=== PATIENT | female | born 1940 | race African-American/Black ===

== ENCOUNTER 2018-04-14 00:59 | Inpatient (IN) | payer OTHER, MEDICARE ==
[~2018-04-14] VITALS: Ht 165.1 cm; Wt 68.0 kg
--- NOTE | 2018-04-14 01:25 | NUR ---
TO BED 8 BIB PARAMEDICS C/O PER EMS "ALTERED MORE THAN NORMAL". RA ARRIVED TO SNF FOR FULL ARREST BUT UPONA ASSESSMENT BY EMS PT HAD PULSE AND BP. PLACE PT ON CARDIAC MONITORING, CONTINUOUS POX, RT AT BEDSIDE. PLACE PT ON O2@5L/TRACHE TUBE. ER MD AT BEDSIDE TO EVAL PT WITH ORDERS RECEIVED. WILL CARRY OUT ORDERS.
[2018-04-14 01:42] LABS: ABG BASE EXCESS -2.6 mmol/L; ABG OXYGEN SATURATION 98.3 % (92.0-98.5); ABG PCO2 35.1 mmHg (35.0-45.0); ABG PH 7.406 (7.350-7.450); ABG PO2 148.3 mmHg (75.0-100.0); AaDO2 96.5 mmHg; COHb 0.3 % (0.5-1.5); MetHb 0.3 % (0.0-1.5); O2Hb 97.7 % (94.0-97.0); SITE, ABG Right Radial; VENT MODE, BG T-PIECE
[2018-04-14 01:55] LABS: BASOPHILS # (AUTO) 0.1 /CMM (0.0-0.2); BASOPHILS % (AUTO) 0.6 % (0.0-2.0); EOSINOPHILS % (AUTO) 1.8 % (0.0-6.0); HEMATOCRIT 42 % (33-45); HEMOGLOBIN 13.2 g/dL (11.5-14.8); LYMPHOCYTES # (AUTO) 1.1 /CMM (0.8-4.8); LYMPHOCYTES % (AUTO) 9.1 % (20.0-44.0); MEAN CORPUSCULAR HEMOGLOBIN 31 PG (26.0-33.0); MEAN CORPUSCULAR HGB CONC 32 g/dl (31.0-36.0); MEAN CORPUSCULAR VOLUME 99 fL (82-100); MONOCYTES # (AUTO) 0.6 /CMM (0.1-1.30); MONOCYTES % (AUTO) 5.5 % (2.0-12.0); NEUTROPHILS # (AUTO) 9.8 /CMM (1.8-8.9); PLATELET COUNT (AUTO) 231 /CMM (150-450); WHITE BLOOD COUNT (AUTO) 11.8 K/uL (4.3-11.0)
--- NOTE | 2018-04-14 02:03 | NUR ---
PT RESTING QUIETLY, NO ACUTE DISTRESS NOTED, RESP EVEN AND UNLABORED. AWAITING CT AND CXR RESULT.
[2018-04-14 02:08] LABS: INR 0.97 (0.87-1.13)
[2018-04-14 02:14] LABS: TROPONIN I 0.076 ng/mL (0.00-0.056)
[2018-04-14 02:24] LABS: CALCIUM, SERUM 9.4 mg/dL (8.5-10.1); CARBON DIOXIDE 25 mmol/L (21-32); CHLORIDE 105 mmol/L (98-107); CREATININE 0.7 mg/dL (0.6-1.3); GLUCOSE 124 mg/dL (74-106); POTASSIUM 5.9 mmol/L (3.5-5.1); SODIUM SERUM 140 mmol/L (136-145); UREA NITROGEN, BLOOD 34 mg/dL (7-18)
--- NOTE | 2018-04-14 02:29 | NUR ---
PT TRANSPORTED TO RADIOLOGY FOR CT HEAD.
[2018-04-14 02:30] LABS: ALANINE AMINOTRANSFERASE 47 U/L (12-78); ALBUMIN 2.5 g/dL (3.4-5.0); ALKALINE PHOSPHATASE 502 U/L (46-116); ASPARTATE AMINOTRANSFERASE 57 U/L (15-37); BILIRUBIN,DIRECT 0.6 mg/dL (0.0-0.2); BILIRUBIN,TOTAL 1.2 mg/dL (0.2-1.0); TOTAL PROTEIN, SERUM 9.1 g/dL (6.4-8.2)
[2018-04-14 02:46] LABS: ACETAMINOPHEN 0 ug/ml (10-30); SALICYLATE < 2.0 mg/dL (2.8-20.0)
--- NOTE | 2018-04-14 02:47 | NUR ---
PT BACK FROM RADIOLOGY. PENDING CT RESULT.
[2018-04-14 02:48] LABS: ALCOHOL, BLOOD < 3 mg/dL (0-0)
--- NOTE | 2018-04-14 03:45 | NUR ---
CT RESULT RECEIVED. ER MD GOMEZ AWARE.
--- NOTE | 2018-04-14 04:10 | NUR ---
TOTAL PT CARE DONE.
[2018-04-14 04:38] LABS: APPEARANCE,URINE CLOUDY (CLEAR); BILIRUBIN,URINE NEGATIVE (NEGATIVE); BLOOD, URINE 1+ Ery/uL (NEGATIVE); COLOR,URINE YELLOW (YELLOW); KETONES,URINE NEGATIVE (NEGATIVE); LEUKOCYTE ESTERASE ,URINE NEGATIVE (NEGATIVE); NITRITE, URINE NEGATIVE (NEGATIVE); PROTEIN,URINE 1+ mg/dl (NEGATIVE); UGLUCOSE NEGATIVE (NEGATIVE); UROBILINOGEN,URINE 0.2 EU/dL (0.2)
[2018-04-14 04:42] LABS: BACTERIA,URINE None seen /HPF (None Seen); SQUAMOUS EPITHELIAL CELL,UR Few /HPF (None Seen); URINE AMORPHOUS URATE Many /HPF (None Seen); WBC,URINE 0-2 /HPF (0-3)
[2018-04-14] MEDS ORDERED: ASPIRIN 325 MG TABLET GT ONE (05:30)
--- NOTE | 2018-04-14 05:43 | NUR ---
PER TIARRA FROM ADMITTING "VERBAL AUTH TO ADMIT AND THEY WILL FAX THE AUTH NUMBER LATER"
--- NOTE | 2018-04-14 05:56 | NUR ---
ER SPOKE TO DR. KEE REGARDING PT ADMISSION.
[2018-04-14] MEDS ORDERED: ASPIRIN 325 MG TABLET ONE (06:17)
--- NOTE | 2018-04-14 06:18 | NUR ---
REPORT CALLED TO JF. WILL TRANSPORT PT VIA ACLS PROTOCOL.
[2018-04-14 06:49] VITALS: BP 122/66
[2018-04-14] MEDS ORDERED: OXYC5CAP18 GT (07:52)
[2018-04-14] MEDS ORDERED: PANT20TA2 PO (07:52)
[2018-04-14] MEDS ORDERED: HYDR10SY15 GT (07:52)
[2018-04-14] MEDS ORDERED: HYDR4TAB4 PO (07:52)
[2018-04-14] MEDS ORDERED: HYDR4TAB57 GT (07:52)
[2018-04-14] MEDS ORDERED: ACET325C5 PO (07:52)
[2018-04-14] MEDS ORDERED: POTA10CA43 PO (07:52)
[2018-04-14] MEDS ORDERED: ENOX40DI SQ (07:52)
[2018-04-14 08:00] VITALS: BP 111/77
[2018-04-14 08:06] LABS: BASOPHILS # (AUTO) 0.1 /CMM (0.0-0.2); BASOPHILS % (AUTO) 0.4 % (0.0-2.0); EOSINOPHILS % (AUTO) 1.2 % (0.0-6.0); HEMATOCRIT 36 % (33-45); HEMOGLOBIN 11.8 g/dL (11.5-14.8); LYMPHOCYTES # (AUTO) 1.3 /CMM (0.8-4.8); LYMPHOCYTES % (AUTO) 10.1 % (20.0-44.0); MEAN CORPUSCULAR HEMOGLOBIN 32 PG (26.0-33.0); MEAN CORPUSCULAR HGB CONC 33 g/dl (31.0-36.0); MEAN CORPUSCULAR VOLUME 97 fL (82-100); MONOCYTES # (AUTO) 0.9 /CMM (0.1-1.30); MONOCYTES % (AUTO) 6.9 % (2.0-12.0); NEUTROPHILS # (AUTO) 10.1 /CMM (1.8-8.9); NEUTROPHILS % (AUTO) 81.4 % (43.0-81.0); PLATELET COUNT (AUTO) 293 /CMM (150-450); RDW COEFFICIENT OF VARIATION 22.8 (11.5-15.0); RED BLOOD CELL COUNT(AUTO) 3.69 MIL/uL (4.0-5.2); WHITE BLOOD COUNT (AUTO) 12.5 K/uL (4.3-11.0)
[2018-04-14 08:25] LABS: TROPONIN I 0.106 ng/mL (0.00-0.056)
[2018-04-14 08:30] VITALS: BP 111/77
[2018-04-14 08:31] LABS: ALANINE AMINOTRANSFERASE 38 U/L (12-78); ALBUMIN 2.2 g/dL (3.4-5.0); ALKALINE PHOSPHATASE 444 U/L (46-116); ASPARTATE AMINOTRANSFERASE 39 U/L (15-37); B-TYPE NATRIURETIC PEPTIDE 474 PG/ML (0-125); CALCIUM, SERUM 9.3 mg/dL (8.5-10.1); CARBON DIOXIDE 24 mmol/L (21-32); CHLORIDE 106 mmol/L (98-107); CHOLESTEROL 148 mg/dL (<200); CREATININE 0.7 mg/dL (0.6-1.3); GLUCOSE 129 mg/dL (74-106); HDL CHOLESTEROL 66 mg/dL (40-60); LDL 69 mg/dL (0-99); MAGNESIUM 2.4 mg/dL (1.8-2.4); PHOSPHORUS 4.7 mg/dL (2.5-4.9); POTASSIUM 5.8 mmol/L (3.5-5.1); SODIUM SERUM 139 mmol/L (136-145); THYROID STIMULATING HORMONE 15.954 uIU/mL (0.358-3.74); TOTAL PROTEIN, SERUM 7.7 g/dL (6.4-8.2); TRIGLYCERIDES 86 mg/dL (30-150); UREA NITROGEN, BLOOD 34 mg/dL (7-18)
[2018-04-14] MEDS: ASPIRIN 325 MG TABLET GT SCH (09:27)
[2018-04-14] MEDS: ENOXAPARIN SODIUM 40 MG/0.4 ML DISP.SYRIN SQ SCH (09:48)
[2018-04-14] MEDS ORDERED: SODIUM POLYSTYRENE SULFONATE 15 G/60 ML BOTTLE PO ONE (10:30)
[2018-04-14 11:10] LABS: ABG BASE EXCESS -1.2 mmol/L; ABG OXYGEN SATURATION 98.7 % (92.0-98.5); ABG PCO2 34.1 mmHg (35.0-45.0); ABG PH 7.436 (7.350-7.450); ABG PO2 174.3 mmHg (75.0-100.0); AaDO2 71.7 mmHg; COHb 0.3 % (0.5-1.5); MetHb 0.3 % (0.0-1.5); O2Hb 98.1 % (94.0-97.0); SITE, ABG Right Radial; VENT MODE, BG CA
[2018-04-14] MEDS: IV NS 0.9% 1,000 ML IV SCH ×2 (11:10→16:57)
[2018-04-14] MEDS ORDERED: IPRATROPIUM NEB FS 0.5 MG/2.5 ML AMPUL.NEB NEB PRN (11:30)
[2018-04-14 12:00] VITALS: BP 99/60
--- NOTE | 2018-04-14 12:00 | NUR ---
FERN GATHERER NOTES SEEN BY MADE AWARE LABS AND ABOUT THE MED RECON NOT DONE.CALL MADE TO [facility] AND GOT COPY OF MED RECON FROM THERE AND GIVEN TO CHARGE NURSE.CHARGE NURSE ALSO MADE AWARE THAT MED RECON NOT DONE.
--- NOTE | 2018-04-14 13:13 | NUR ---
SECURITY SHIFT MANAGER OPENING NOTES REPORT GOT FROM PM NURSE.TOLD THAT PATIENT RECEIVED RECENTLY FROM ER.PATIENT IS ALERTX1.ABLE TO RESPOND TO TOUCH AND LIGHT PAIN .HAS IV ON L WRIST 18G.INTACT AND PATENT.HAS TRACH AND O2 5L VIA TRACH MASK.NO SIGNS AND SYMPTOMS OF SOB OR DISTRESS NOTED. HAS CHERY CATH DRAINING CLEAR YELLOW URINE.AND HAS FLEXI SEAL .BED IS LOCKED AND IN LOW POSITION.CALL LIGHT IN REACH.WILL CONTINUE TO MONITOR.
[2018-04-14 16:00] VITALS: BP 127/56
--- NOTE | 2018-04-14 17:15 | NUR ---
COOK CHEF NOTE PATIENT HAD AN EPISODE OF DESATURATION AFTER CLEANING THE PATIENT. MADE AWARE.HOB ELEVATED PUT ON 100% OXYGEN.SUCTION DONE .BAG THE PATIENT.FOUND RESISTANCE.INNER CANNULA CHANGED.FOUND PATIENT HAS MUCUS PLUG .STAT ABG DONE.WILL CONTINUE TO MONITOR.
--- NOTE | 2018-04-14 17:30 | NUR ---
TANKERMAN NOTES MADE AWARE ABOUT AN EPISODE OF DESATURATION AND ABG RESULT.GOT NEW ORDER FOR MUCOMYST TID 10%.
[2018-04-14 17:40] LABS: ABG BASE EXCESS -4.1 mmol/L; ABG OXYGEN SATURATION 92.9 % (92.0-98.5); ABG PCO2 35.5 mmHg (35.0-45.0); ABG PH 7.378 (7.350-7.450); ABG PO2 72.9 mmHg (75.0-100.0); AaDO2 135.4 mmHg; COHb 0.9 % (0.5-1.5); MetHb 0.3 % (0.0-1.5); O2Hb 91.8 % (94.0-97.0); SITE, ABG Left Brachial; VENT MODE, BG C/A 35%
--- NOTE | 2018-04-14 17:40 | NUR ---
TEST HOLE DRILLER NOTES LEFT MESSAGE TO CASE MANAGEMENT TO CALL FAMILY.LEFT PHONE NUMBER TOO.
[2018-04-14] MEDS ORDERED: PANT20TA2 GT (18:19)
[2018-04-14] MEDS ORDERED: MELA3TAB GT (18:19)
[2018-04-14] MEDS ORDERED: POTA20TA83 GT (18:19)
[2018-04-14] MEDS ORDERED: METO-295 PO (18:19)
[2018-04-14] MEDS ORDERED: HYDR-4075 GT (18:19)
[2018-04-14] MEDS ORDERED: LABE5VIA4 IV (18:19)
--- NOTE | 2018-04-14 19:10 | NUR ---
EMERGING TECHNOLOGIES DIRECTOR SHIFT END NOTES PATIENT IS ALERTX1.ABLE TO RESPOND TO TOUCH AND LIGHT PAIN .HAS IV ON L WRIST 18G.INTACT AND PATENT WITH IVF NS 200ML/HR.HAS TRACH AND O2 35% VIA COOL AEROSOL.NO SIGNS AND SYMPTOMS OF SOB OR DISTRESS NOTED. HAS CHERY CATH DRAINING CLEAR YELLOW URINE.AND HAS FLEXI SEAL .BED IS LOCKED AND IN LOW POSITION.CALL LIGHT IN REACH.REPORT GIVEN TO PM NURSE FOR JACK.
--- NOTE | 2018-04-14 19:30 | NUR ---
TELE/RN NOTES: RECEIVED PT. IN BED W/ HOB ELEVATED. ALERT X 1. RESPONDS TO TACTILE STIMULI. ON TELE MONITOR W/ SR @ 96. HAS IV ON LEFT WRIST G # 18 PATENT AND INTACT W/ NO S/S INFECTION/INFILTRATION NOTED. W/ IVF @ 200 ML/HR. HAS TRACH W/ COOL AEROSOL W/ O2@ 35%. NO S/S OF RESPIRATORY DISTRESS NOTED. HAS F/C CATH IN PLACE DRAINING TO YELLOW URINE. HAS FLEXI SEAL PATENT AND INTACT W/ BROWNISH STOOL LIQUID. HAS A GT INPLACE AND INTACT. STARTED VITAL @ 65 CC/HR. NO RESIDUAL NOTED. NO FACIAL GRIMACES OR MOANING NOTED. WILL CONTINUE TO MONITOR.
[2018-04-14 20:00] VITALS: BP 111/70
[2018-04-14] MEDS: VITAL AF 1.2 1,000 ML BOTTLE GT PRN (23:03)
[2018-04-14] MEDS: ACETYLCYSTEINE 10% SOLN 400 MG/4 ML VIAL NEB SCH (23:44)
[2018-04-15] VITALS: BP 99/48
[2018-04-15 04:00] VITALS: BP 98/59
--- NOTE | 2018-04-15 06:31 | NUR ---
TELE/RN NOTES: NO ACUTE CHANGES NOTED DURING THIS SHIFT. REPORT GIVEN TO AM NURSE FOR JACK.
[2018-04-15 06:44] LABS: TROPONIN I 0.032 ng/mL (0.00-0.056)
[2018-04-15 06:48] LABS: CALCIUM, SERUM 8.7 mg/dL (8.5-10.1); CARBON DIOXIDE 22 mmol/L (21-32); CHLORIDE 113 mmol/L (98-107); CREATININE 0.6 mg/dL (0.6-1.3); GLUCOSE 133 mg/dL (74-106); MAGNESIUM 2.2 mg/dL (1.8-2.4); POTASSIUM 3.8 mmol/L (3.5-5.1); SODIUM SERUM 145 mmol/L (136-145); UREA NITROGEN, BLOOD 27 mg/dL (7-18)
--- NOTE | 2018-04-15 07:00 | NUR ---
RN NOTES: RECEIVED PT. ON BED, A/Ox1, TRACH DEPENDENT , TRACH CARE AND SUCTIONING DONE, ON 35% COOL AEROSOL. O2 SAT IN HIGH 90'S , ON TELE SR , HR IN 90'S , GTF AT 65CC/HR RUNNING , NO RESIDUAL NOTED, HOB ELEVATED. LEFT WRIST IV SITE G # 18 ,CDI, F/C CATH IN PLACE DRAINING TO GRAVITY WITH YELLOW URINE. FLEXI SEAL DRINING TO GRAVITY WITH , BROWNISH STOOL LIQUID STOOL, SR UP x3, CALL LIGHT WITHIN EASY REACH, BED LOCKED AND IN LOWEST POSITION, CONTINUE TO MONITOR.
[2018-04-15 08:00] VITALS: BP 132/63
[2018-04-15] MEDS: ALBUTEROL FS 2.5 MG/3 ML VIAL.NEB NEB PRN ×2 (08:03→15:50)
[2018-04-15] MEDS: ACETYLCYSTEINE 10% SOLN 400 MG/4 ML VIAL NEB SCH ×2 (08:03→15:50)
[2018-04-15] MEDS: ASPIRIN 325 MG TABLET GT SCH (08:33)
[2018-04-15] MEDS: ENOXAPARIN SODIUM 40 MG/0.4 ML DISP.SYRIN SQ SCH (08:35)
[2018-04-15 12:00] VITALS: BP 121/76
--- NOTE | 2018-04-15 12:00 | NUR ---
RN NOTES PT STABLE , O2 SAT 100% ON 355 COOL AEROSOL , CONTINUE TO MONITOR.
[2018-04-15] MEDS: VITAL AF 1.2 1,000 ML BOTTLE GT PRN (14:35)
[2018-04-15 16:00] VITALS: BP 135/63
--- NOTE | 2018-04-15 18:00 | NUR ---
RN NOTES PT STABLE , TRACH SUCTIONING DONE, TOLERATING TF WELL, L WRIST IV SITE CDI, FOLY DRINING TO GRAVITY WITH YELLOW URINE, SR UP x3, CALL LIGHT WITHIN EASY REACH, BED LOCKED AND IN LOWEST POSITION, WILL ENDORSE TO HARP REGULATOR NURSE FOR JACK .
[2018-04-15 20:00] VITALS: BP 110/59
[2018-04-16] VITALS: BP 110/59
[2018-04-16] MEDS: ACETYLCYSTEINE 10% SOLN 400 MG/4 ML VIAL NEB SCH ×3 (00:11→15:52)
[2018-04-16 04:00] VITALS: BP 131/57
[2018-04-16] MEDS: VITAL AF 1.2 1,000 ML BOTTLE GT PRN (04:46)
--- NOTE | 2018-04-16 07:10 | NUR ---
RN NOTES: RECEIVED PT. ON BED, A/Ox1, TRACH DEPENDENT , TRACH CARE AND SUCTIONING DONE, ON 35% COOL AEROSOL. O2 SAT 100%, , ON TELE SR , HR IN 90'S , GTF AT 65CC/HR RUNNING VIA G TUBE, TOLERATING WELL, NO RESIDUAL NOTED, HOB ELEVATED. LEFT WRIST IV SITE G # 18 CDI, CHERY CATH IN PLACE DRAINING TO GRAVITY WITH YELLOW URINE. FLEXI SEAL DRINING TO GRAVITY WITH BROWNISH LIQUID STOOL, BED LOCKED AND IN LOWEST POSITION, SR UP x3, CALL LIGHT WITHIN EASY REACH, CONTINUE TO MONITOR PT CLOSELY .
[2018-04-16 07:45] LABS: CALCIUM, SERUM 8.8 mg/dL (8.5-10.1); CARBON DIOXIDE 25 mmol/L (21-32); CHLORIDE 113 mmol/L (98-107); CREATININE 0.6 mg/dL (0.6-1.3); GLUCOSE 112 mg/dL (74-106); PHOSPHORUS 3.5 mg/dL (2.5-4.9); SODIUM SERUM 148 mmol/L (136-145); UREA NITROGEN, BLOOD 30 mg/dL (7-18)
[2018-04-16 07:47] LABS: TROPONIN I < 0.017 ng/mL (0.00-0.056)
[2018-04-16 07:50] LABS: BASOPHILS % (AUTO) 0.1 % (0.0-2.0); EOSINOPHILS % (AUTO) 3.2 % (0.0-6.0); HEMATOCRIT 34 % (33-45); HEMOGLOBIN 11.4 g/dL (11.5-14.8); LYMPHOCYTES # (AUTO) 1.4 /CMM (0.8-4.8); LYMPHOCYTES % (AUTO) 12.2 % (20.0-44.0); MEAN CORPUSCULAR HEMOGLOBIN 32 PG (26.0-33.0); MEAN CORPUSCULAR HGB CONC 34 g/dl (31.0-36.0); MEAN CORPUSCULAR VOLUME 96 fL (82-100); MONOCYTES % (AUTO) 8.5 % (2.0-12.0); NEUTROPHILS # (AUTO) 8.5 /CMM (1.8-8.9); PLATELET COUNT (AUTO) 256 /CMM (150-450); RDW COEFFICIENT OF VARIATION 21.8 (11.5-15.0); RED BLOOD CELL COUNT(AUTO) 3.54 MIL/uL (4.0-5.2); WHITE BLOOD COUNT (AUTO) 11.3 K/uL (4.3-11.0)
[2018-04-16 08:00] VITALS: BP 112/56
--- NOTE | 2018-04-16 08:23 | NUR ---
WOUND CARE CONSULT: PT PRESENTS WITH MULTIPLE INCISIONS (CLOSED) WITH ARUN TO HIPS, THIGHS WELL NECROTIC WOUND TO LEFT THIGH, OPEN WOUND TO LEFT MEDIAL THIGH AND STAGE 2 ULCERS TO LEFT LATERAL HIP NEAR INCISION, PRESENT ON ADMISSION. SCARRING NOTED TO FEET WITH DISCOLORATION. SACRAL SCARRING NOTED. ALL SKIN PROTECTION AND WOUND CARE RECOMMENDATIONS DISCUSSED WITH NURSING STAFF. RECOMMEND SURGICAL CONSULT. WILL SEE PRN. VASQUEZ IN AGREEMENT WITH PLAN OF CARE. PT ON [facility] BED. CURRENT PATEL SCORE IS 11. Addendum: 04/16/18 at 0825 by RAMBO HUNTLEYU Amended: Links added. Addendum: 04/16/18 at 0837 by RAMBO HUNTLEYU CALLUS NOTED TO LEFT LATERAL FOOT, PRESENT ON ADMISSION. PT ALSO NOTED TO HAVE LEAKAGE AROUND RECTAL TUBE WITH LIQUID STOOL. SKIN TO BE KEPT CLEAN AND DRY.
[2018-04-16] MEDS: ENOXAPARIN SODIUM 40 MG/0.4 ML DISP.SYRIN SQ SCH (08:27)
[2018-04-16] MEDS: ASPIRIN 325 MG TABLET GT SCH (08:27)
[2018-04-16] MEDS ORDERED: HYDROGEL DRESSING 90 GM TUBE TP PRN (08:30)
[2018-04-16] MEDS ORDERED: Z GUARD REMEDY 2 OZ OINT TP PRN (08:30)
[2018-04-16] MEDS ORDERED: HYDROGEL DRESSING 90 GM TUBE TP SCH (09:00)
[2018-04-16] MEDS ORDERED: Z GUARD REMEDY 2 OZ OINT TP SCH (09:00)
[2018-04-16] MEDS ORDERED: IV 1/2NS 1000 ML 1,000 ML IV PRN (11:00)
[2018-04-16 12:00] VITALS: BP 109/60
--- NOTE | 2018-04-16 12:00 | NUR ---
RN NOTES PT STABLE , TOLERATING TF WELL, CONTINUE TO MONITOR
[2018-04-16 16:00] VITALS: BP 116/68
--- NOTE | 2018-04-16 16:00 | NUR ---
RN NOTES VIK AND KURT STAFFORD D/TROY, REPORT GIVEN TO SNF , PT STABLE .
--- NOTE | 2018-04-16 19:30 | NUR ---
TELE/RN NOTES: RECEIVED PT. IN BED W/ HOB ELEVATED. ALERT X 1. RESPONDS TO TACTILE STIMULI. ON TELE MONITOR W/ SR @ 85. HAS IV ON LEFT WRIST G # 18 PATENT AND INTACT W/ NO S/S INFECTION/INFILTRATION NOTED. HAS TRACH W/ COOL AEROSOL W/ O2@ 35%. NO S/S OF RESPIRATORY DISTRESS NOTED. INCONTINENT OF B/B. HAS A GT INPLACE AND INTACT W/ VITAL @ 65 CC/HR. NO RESIDUAL NOTED. NO FACIAL GRIMACES OR MOANING NOTED. WILL CONTINUE TO MONITOR.
[2018-04-16 20:00] VITALS: BP 112/58
--- NOTE | 2018-04-16 20:00 | NUR ---
TELE/RN NOTES: PT. LEFT VIA STRETCHER W/ EMS STAFF IN STABLE.
[2018-04-19] MEDS ORDERED: LABE200T PO (09:47)
== END 2018-04-16 20:00 | DRG 190 ==
LOC: ER 01:04 → TELE1 06:03
PROVIDERS: ADMIT Internal Medicine; ATTEND Internal Medicine
DX: I21.A1 Myocardial infarction type 2 (principal); G93.40 Encephalopathy, unspecified; J96.11 Chronic respiratory failure with hypoxia; E87.0 Hyperosmolality and hypernatremia; R64 Cachexia; R65.10 Systemic inflammatory response syndrome (SIRS) of non-infectious origin without acute organ dysfunction; Z93.0 Tracheostomy status; E88.09 Other disorders of plasma-protein metabolism, not elsewhere classified; E03.9 Hypothyroidism, unspecified; R79.89 Other specified abnormal findings of blood chemistry; E87.6 Hypokalemia; D72.829 Elevated white blood cell count, unspecified; R74.0 Nonspecific elevation of levels of transaminase and lactic acid dehydrogenase [LDH]; F09 Unspecified mental disorder due to known physiological condition; D64.9 Anemia, unspecified; Z68.25 Body mass index [BMI] 25.0-25.9, adult
CPT/HCPCS: 31720; 36415; 36600; 70450-TC; 71045-TC; 76700-TC; 80048-TC; 80053-TC; 80061-TC; 80076-TC; 80305; 81000-TC; 82728-TC; 82803-TC; 82962-TC; 83540-TC; 83605-TC; 83735-TC; 83880; 84100-TC; 84439-TC; 84443-TC; 84484-TC; 85025-TC; 85730-TC; 87040-TC; 87081-TC; 93307-TC; 94640-TC; 94760-TC; 94762-TC; A4217; A4606; A4623; A6248; A6253; A6402; A6403; G0480; J1650; J3490; J7030; Z7610

== ENCOUNTER 2018-04-19 08:39 | Inpatient (IN) | payer MEDICARE, OTHER ==
[2018-04-19] VITALS (22 sets, daily range): BP systolic 89–148; BP diastolic 55–101
[~2018-04-19] VITALS: Ht 167.6 cm; Wt 77.1 kg
[~2018-04-19 08:39] MED LIST: ACET325C5 PO; ENOX40DI SQ; HYDR-4075 GT; HYDR10SY15 GT; HYDR4TAB4 PO; HYDR4TAB57 GT; LABE5VIA4 IV; MELA3TAB GT; METO-295 PO; OXYC5CAP18 GT; PANT20TA2 GT; PANT20TA2 PO; POTA10CA43 PO
--- NOTE | 2018-04-19 08:42 | NUR ---
BBRA FROM [facility] FOR RESP DISTRESS. PATIENT WAS NOT RESPONSIVE AND NOT BREATHING DURING THE USUAL MORNING ROUTINE CHECK AT THE FACILITY. PATIENT IS ON TRACH BUT NO VENT. SKIN IS WARM AND DRY. RT PLACED PATIENT ON VENT WITH THE FOLLOWING SETTINGS: AC=18, PEEP=5, HN=734, FIO2=60% DUSTYLEY #8. PLACED ON THE MONITOR. DR WAKEFIELD AT FOR EVAL.
--- NOTE | 2018-04-19 09:06 | NUR ---
PT PLACED INTO [facility] VENT VIA TRACH DUE TO INCREASED WOB. VENT SETTINGS BELLOW ORDER: AC 18 VT 550 fio2 60% peep +5 breath sounds clear bilateral. fernandezubag @ hob. Addendum: 04/19/18 at 0917 by BRIGIDA PATEL RT Amended: Links added.
[2018-04-19 09:23] LABS: BASOPHILS # (AUTO) 0.1 /CMM (0.0-0.2); BASOPHILS % (AUTO) 0.9 % (0.0-2.0); EOSINOPHILS % (AUTO) 2.3 % (0.0-6.0); HEMATOCRIT 34 % (33-45); HEMOGLOBIN 11.4 g/dL (11.5-14.8); LYMPHOCYTES # (AUTO) 3.2 /CMM (0.8-4.8); LYMPHOCYTES % (AUTO) 22.3 % (20.0-44.0); MEAN CORPUSCULAR HEMOGLOBIN 32 PG (26.0-33.0); MEAN CORPUSCULAR HGB CONC 34 g/dl (31.0-36.0); MEAN CORPUSCULAR VOLUME 96 fL (82-100); MONOCYTES # (AUTO) 0.7 /CMM (0.1-1.30); MONOCYTES % (AUTO) 4.7 % (2.0-12.0); NEUTROPHILS # (AUTO) 10.2 /CMM (1.8-8.9); NEUTROPHILS % (AUTO) 69.8 % (43.0-81.0); PLATELET COUNT (AUTO) 275 /CMM (150-450); RDW COEFFICIENT OF VARIATION 20.4 (11.5-15.0); RED BLOOD CELL COUNT(AUTO) 3.54 MIL/uL (4.0-5.2); WHITE BLOOD COUNT (AUTO) 14.5 K/uL (4.3-11.0)
[2018-04-19 09:33] LABS: CALCIUM, SERUM 9.4 mg/dL (8.5-10.1); CARBON DIOXIDE 27 mmol/L (21-32); CHLORIDE 107 mmol/L (98-107); CREATININE 0.7 mg/dL (0.6-1.3); GLUCOSE 138 mg/dL (74-106); POTASSIUM 4.2 mmol/L (3.5-5.1); SODIUM SERUM 139 mmol/L (136-145); UREA NITROGEN, BLOOD 31 mg/dL (7-18)
[2018-04-19 09:40] LABS: TROPONIN I 0.033 ng/mL (0.00-0.056)
[2018-04-19 09:41] LABS: ALANINE AMINOTRANSFERASE 41 U/L (12-78); ALBUMIN 2.2 g/dL (3.4-5.0); ALKALINE PHOSPHATASE 356 U/L (46-116); ASPARTATE AMINOTRANSFERASE 53 U/L (15-37); BILIRUBIN,DIRECT 0.5 mg/dL (0.0-0.2); BILIRUBIN,TOTAL 0.7 mg/dL (0.2-1.0); TOTAL PROTEIN, SERUM 7.4 g/dL (6.4-8.2)
[2018-04-19 09:42] LABS: INR 0.95 (0.85-1.15)
[2018-04-19] MEDS ORDERED: HYDR2TAB7 GT (09:47)
[2018-04-19] MEDS ORDERED: NUT.237L65 GT (09:47)
[2018-04-19] MEDS ORDERED: ALBU2.5V38 IH (09:47)
[2018-04-19] MEDS ORDERED: LABE200T5 PO (09:47)
[2018-04-19] MEDS ORDERED: POTA20LI4 GT (09:47)
[2018-04-19] MEDS ORDERED: ACET-2605 GT (09:47)
[2018-04-19 09:56] LABS: ABG BASE EXCESS -0.3 mmol/L; ABG OXYGEN SATURATION 98.6 % (92.0-98.5); ABG PCO2 36.7 mmHg (35.0-45.0); ABG PH 7.429 (7.350-7.450); ABG PO2 155.4 mmHg (75.0-100.0); COHb 0.2 % (0.5-1.5); MetHb 0.3 % (0.0-1.5); O2Hb 98.1 % (94.0-97.0); PEEP,BG 5 cm H2O; SITE, ABG Left Brachial; VT, ABG 550 mL
[2018-04-19] MEDS ORDERED: LEVOFLOXACIN 750 MG /D5W 150ML PIGGYBACK IV ONE (10:00)
[2018-04-19] MEDS ORDERED: VANCOMYCIN 1 GM in IV D5W 250 ML IV ONE (10:00)
--- NOTE | 2018-04-19 10:24 | NUR ---
fio2 decreased from 60% to 35% due to pao2 155 and spo2 100%. Addendum: 04/19/18 at 1025 by BRIGIDA PATEL RT Amended: Links added.
--- NOTE | 2018-04-19 10:25 | NUR ---
PATIENT TRANSPORTED FOR CT VIA GURNEY.
--- NOTE | 2018-04-19 10:42 | NUR ---
PATIENT CAME BACK FROM CT. PT REMAINS IN STABLE CONDITION AT THIS TIME.
--- NOTE | 2018-04-19 10:51 | NUR ---
peep of 0 due to low bp. Addendum: 04/19/18 at 1051 by BRIGIDA PATEL RT Amended: Links added.
[2018-04-19 11:01] LABS: APPEARANCE,URINE TURBID (CLEAR); BILIRUBIN,URINE NEGATIVE (NEGATIVE); BLOOD, URINE 2+ Ery/uL (NEGATIVE); COLOR,URINE YELLOW (YELLOW); KETONES,URINE NEGATIVE (NEGATIVE); LEUKOCYTE ESTERASE ,URINE 3+ (NEGATIVE); NITRITE, URINE POSITIVE (NEGATIVE); PROTEIN,URINE 2+ mg/dl (NEGATIVE); UGLUCOSE NEGATIVE (NEGATIVE); UROBILINOGEN,URINE 0.2 EU/dL (0.2)
--- NOTE | 2018-04-19 11:09 | NUR ---
REPORT GIVEN TO MAURO LOPEZ FOR [facility] ICU 255
[2018-04-19] MEDS ORDERED: LEVOFLOXACIN 750 MG /D5W 150ML 150 ML IV ONE (11:26)
--- NOTE | 2018-04-19 11:26 | NUR ---
PT. TRANSFERRED FROM ER#8 TO ICU 255. [facility]. [facility], PLUGGED INTO RED OUTLET WITH ALARMS ON AND FUNCTIONING. JACKIE BAG @ HOB. Addendum: 04/19/18 at 1127 by BRIGIDA PATEL RT Amended: Links added.
[2018-04-19] MEDS ORDERED: ONDANSETRON HCL/PF 4 MG/2 ML VIAL IVP PRN (11:30)
[2018-04-19] MEDS ORDERED: LORAZEPAM INJ 2 MG/ML VIAL IV PRN (11:30)
[2018-04-19] MEDS ORDERED: ACETAMINOPHEN 325 MG TABLET PO PRN (11:30)
[2018-04-19] MEDS ORDERED: MORPHINE SULFATE INJ 2 MG/ML DISP.SYRIN IV PRN ×2 (11:30→15:30)
[2018-04-19] MEDS ORDERED: MAGNESIUM HYDROXIDE 30 ML UDC GT PRN (11:30)
[2018-04-19] MEDS ORDERED: ACETAMINOPHEN 650 MG/SUPP.RECT RC PRN (11:30)
[2018-04-19] MEDS ORDERED: MAG HYDROX/AL HYDROX/SIMETH 30 ML UDC PO PRN (11:30)
--- NOTE | 2018-04-19 11:40 | NUR ---
GRAIN OILSEED OR PASTURE FARM WORKER- INITIAL ADMITTING NOTE RECEIVED PT FROM ER VIA [facility]. PT AWAKE, ALERT, ABLE TO FOLLOW COMMANDS. SINUS RHYTHM ON MONITOR. VENT/TRACH PATIENT, RESPIRATIONS EVEN AND UNLABORED, NO SOB OR DISTRESS PRESENT. G-TUBE PRESENT AND CLAMPED. CHERY CATHETER INSERTED. TWO IVS PRESENT: LEFT WRIST 20G AND RIGHT WRIST 20G. BOTH IVS FLUSHED, PATENT AND INTACT. WILL CONTINUE TO MONITOR. Addendum: 04/19/18 at 1915 by JOHN FLETCHER RN SUBCUTANEOUS EMPHYSEMA NOTED. CREPITUS FELT UPON PALPATION.
[2018-04-19 11:41] LABS: RBC,URINE 21-50 /HPF (0-2); WBC,URINE TNTN /HPF (0-3)
[2018-04-19 11:42] LABS: BACTERIA,URINE 4+ /HPF (None Seen); FINE GRANULAR CASTS,URINE Few /LPF (None Seen); HYALINE CASTS, URINE Moderate /LPF (None Seen); SQUAMOUS EPITHELIAL CELL,UR Few /HPF (None Seen); YEAST,URINE None Seen /HPF (None Seen)
[2018-04-19] MEDS: IV NS 0.9% 1,000 ML IV PRN (11:58)
[2018-04-19] MEDS ORDERED: ALBUTEROL FS 2.5 MG/3 ML VIAL.NEB NEB PRN (12:00)
[2018-04-19] MEDS ORDERED: OSMOLITE 1.2 CAL 1,000 ML LIQUID GT PRN (12:00)
[2018-04-19] MEDS ORDERED: MISCELLANEOUS MED 1 EA EA GT PRN (12:00)
[2018-04-19] MEDS: ALBUTEROL HALF STRENGTH 1.25 MG/3 ML VIAL.NEB NEB SCH ×2 (15:46→19:28)
[2018-04-19] MEDS: ACETYLCYSTEINE 10% SOLN 400 MG/4 ML VIAL NEB SCH ×2 (15:46→22:52)
[2018-04-19] MEDS: IPRATROPIUM NEB FS 0.5 MG/2.5 ML AMPUL.NEB NEB SCH ×2 (15:46→19:28)
--- NOTE | 2018-04-19 20:12 | NUR ---
RECEIVED PT TRACH WITH SHLY 8 ON [facility] VENT AC 18,550,35%. NO RESP DISTRESS NOTED. PT TOLERATING VENT SETTINGS. VENT ALARMS SET AND AUDIBLE. AMBU BAG AT BEDSIDE. VENT PLUGGED INTO RED OUTLET. WILL CONTINUE TO MONITOR. Addendum: 04/19/18 at 2014 by NAHID LANDON RT Amended: Links added.
--- NOTE | 2018-04-19 20:35 | NUR ---
MAMMOGRAPHY SUPERVISOR. INITIAL ASSESSMENT. RECEIVED THE PT REST ON THE BED. AWAKE, LETHARGIC. TRACH TO VENT CONNECTED. SUBCUTANEOUS EMPHYSEMA AROUND THE NECK AND CHEST. VENT SETTINGS TRACH SHILEY#8,AC 18,TV 550,FIO2 35%. SAT 98%. NO ACUTE DISTRESS NOTED. FEATHER DRYING MACHINE OPERATOR SHOWING NSR. IV RT WRIST 20G. IVF NS 75ML/H,GT INTACT. OSMOLITE 65ML/H. HOB ELEVATED. FC PATENT. WILL CONTINUE TO MONITOR VITALS.
[2018-04-19] MEDS: CEFEPIME 1 GM in IV D5W 50 ML IV SCH (21:27)
[2018-04-19] MEDS: Z GUARD REMEDY 2 OZ OINT TP SCH (21:41)
[2018-04-20] VITALS (27 sets, daily range): BP systolic 97–128; BP diastolic 44–74
[2018-04-20] MEDS: IV NS 0.9% 1,000 ML IV PRN ×2 (00:44→18:40)
[2018-04-20] MEDS: IPRATROPIUM NEB FS 0.5 MG/2.5 ML AMPUL.NEB NEB SCH ×4 (00:47→19:44)
[2018-04-20] MEDS: ALBUTEROL HALF STRENGTH 1.25 MG/3 ML VIAL.NEB NEB SCH ×4 (00:47→19:44)
[2018-04-20 05:16] LABS: CALCIUM, SERUM 8.4 mg/dL (8.5-10.1); CARBON DIOXIDE 26 mmol/L (21-32); CHLORIDE 109 mmol/L (98-107); CREATININE 0.7 mg/dL (0.6-1.3); GLUCOSE 114 mg/dL (74-106); MAGNESIUM 1.7 mg/dL (1.8-2.4); PHOSPHORUS 3.4 mg/dL (2.5-4.9); POTASSIUM 4.1 mmol/L (3.5-5.1); SODIUM SERUM 142 mmol/L (136-145); UREA NITROGEN, BLOOD 27 mg/dL (7-18)
[2018-04-20 05:24] LABS: HEMATOCRIT 31 % (33-45); MEAN CORPUSCULAR HEMOGLOBIN 32 PG (26.0-33.0); MEAN CORPUSCULAR HGB CONC 33 g/dl (31.0-36.0); MEAN CORPUSCULAR VOLUME 99 fL (82-100); MONOCYTES % (AUTO) 5.1 % (2.0-12.0); NEUTROPHILS % (AUTO) 79.3 % (43.0-81.0); PLATELET COUNT (AUTO) 242 /CMM (150-450); RDW COEFFICIENT OF VARIATION 22.8 (11.5-15.0); RED BLOOD CELL COUNT(AUTO) 3.11 MIL/uL (4.0-5.2); WHITE BLOOD COUNT (AUTO) 12.1 K/uL (4.3-11.0)
[2018-04-20 05:25] LABS: BASOPHILS % (AUTO) 0.2 % (0.0-2.0); EOSINOPHILS % (AUTO) 1.5 % (0.0-6.0)
--- NOTE | 2018-04-20 06:10 | NUR ---
PUBLIC IMPROVEMENT INSPECTOR. AM CARE, ORAL CARE, BED BATH GIVEN. LINEN CHANGED, REMAINING SAME VENT SETTING TOLERATED WELL. SAT 99%. NO ACUTE DISTRESS NOTED. CDL TRUCK DRIVER SHOWING NSR. IV RT HAND 20G. IVF NS 75ML/H, FC PATENT URINE DRAINING. HOB ELEVATED. GT FEEDING TOLERATED WELL. TURN AND REPOSITION Q2H. WILL CONTINUE TO MONITOR VITALS. LT HIP ARUN INTACT.
--- NOTE | 2018-04-20 07:36 | NUR ---
POWER GENERATION PLANT OPERATOR RECEIVED PATIENT FROM THE PREVIOUS SHIFT. PATIENT IS RESTING. VENT SETTINGS REVIEWED AND VERIFIED. STABLE VITAL SINGS. WILL CONTINUE TO MONITOR AND PROVIDE CARE.
[2018-04-20] MEDS: ACETYLCYSTEINE 10% SOLN 400 MG/4 ML VIAL NEB SCH ×3 (07:44→23:03)
[2018-04-20] MEDS ORDERED: Magnesium 1GM/D5W 100ML PREMIX 100 ML IV SCH (08:00)
--- NOTE | 2018-04-20 08:15 | NUR ---
WINDOWS ADMINISTRATOR SIDNEY [place]T TOP EDGE BEVELER AWARE OF MG LEVEL 1.7. NO REPLACEMENTS NECESSARY AT THIS TIME PER TOP EDGE BEVELER.
[2018-04-20] MEDS ORDERED: HYDROGEL DRESSING 90 GM TUBE TP PRN (08:30)
--- NOTE | 2018-04-20 08:35 | NUR ---
WOUND CARE CONSULT: PT PRESENTS WITH MULTIPLE WOUNDS, PRESENT ON ADMISSION INCLUDING STAGE 3 ULCERS TO LEFT HIP PROXIMAL TO HEALED INCISION WITH ARUN, LEFT LATERAL AND MEDIAL THIGH WOUNDS WITH NECROTIC TISSUE AND INTACT DEEP TISSUE INJURIES TO HEELS. LEFT FOOT AND ANKLE AREA NOTED TO HAVE 4+ PITTING EDEMA. PT INCONTINENT OF STOOL. SACRAL SCARRING NOTED. ALL SKIN PROTECTION AND WOUND CARE RECOMMENDATIONS DISCUSSED WITH NURSING STAFF. PT ON ANA ISOFLEX LOW AIRLOSS BED. RECOMMEND SURGICAL CONSULT. WILL SEE PRN. VASQUEZ IN AGREEMENT WITH PLAN OF CARE. Addendum: 04/20/18 at 0838 by RAMBO ZAPATA WNDNU Amended: Links added.
[2018-04-20] MEDS: CEFEPIME 1 GM in IV D5W 50 ML IV SCH ×2 (08:49→20:50)
[2018-04-20] MEDS: Z GUARD REMEDY 2 OZ OINT TP SCH ×2 (08:50→20:56)
[2018-04-20] MEDS: hydrALAZINE HCL 10 MG TABLET GT SCH (08:50)
[2018-04-20] MEDS: PANTOPRAZOLE 40 MG VIAL IV SCH (08:50)
[2018-04-20] MEDS: HYDROGEL DRESSING 90 GM TUBE TP SCH (08:51)
[2018-04-20] MEDS: ENOXAPARIN SODIUM 40 MG/0.4 ML DISP.SYRIN SQ SCH (08:52)
[2018-04-20] MEDS ORDERED: LEVOFLOXACIN 500 MG /D5W 100ML 500 MG in PREMIX 1 EA IV SCH (09:00)
[2018-04-20 10:05] LABS: ABG BASE EXCESS 1.8 mmol/L; ABG OXYGEN SATURATION 97.7 % (92.0-98.5); ABG PCO2 33.5 mmHg (35.0-45.0); ABG PH 7.489 (7.350-7.450); ABG PO2 113.2 mmHg (75.0-100.0); AaDO2 97.4 mmHg; COHb 0.3 % (0.5-1.5); MetHb 0.4 % (0.0-1.5); PEEP,BG 3 cm H2O; SITE, ABG Right Radial; VENT MODE, BG CPAP 3 PS 15
[2018-04-20] MEDS: JEVITY 1.2 CAL 1,000 ML BOTTLE GT PRN (18:13)
--- NOTE | 2018-04-20 19:00 | NUR ---
ELECTRICAL DISCHARGE MACHINE OPERATOR NOTES Received patient awake,alert,seems coherent ,follows commands.With tracheostomy so # 8 with trache collar 35 % O2.not in any distress,breathing regular and non labored.PEG tube with on going tube feeding Jevity 1.2 @65 ml/hr.+ subcutaneous emphysema all over the chest.Comfort care done ,needs attended.For transfer to [facility] when bed ready.
--- NOTE | 2018-04-20 21:15 | NUR ---
RESPIRATORY THERAPY ASSISTANT NOTES TRANSFERED TO [facility],REMAINS STABLE,AWAKE,ALERT ,NOT IN ANY DISTRESS.REPORT GIVEN TO RN .
--- NOTE | 2018-04-20 21:30 | NUR ---
[facility]/PORTABLE PINCH RIVETER NOTES: ADMITTED PT. FROM ICU W/ RN. DEN W/ ACLS PROTOCOL. W/ TRACH SHILEY # 8 TO COOL AEROSOL W/ 35 %. W/ O2 @ 8LPM SAT. 96%. NO FACIAL GRIMACES OR MOANING NOTED. NO S/S OF RESPIRATORY DISTRESS. ALERT AND FOLLOWS COMMAND. ON TELE MONITOR W/ SR 91. BLE NOTED W/ EDEMA L>R. HAS A GT PATENT AND INTACT W/ NO RESIDUAL NOTED. W/ JEVITY 1.2 @ 65 CC/HR. HAS A F/C PATENT AND INTACT DRAINING VIA GRAVITY YELLOW COLOR URINE. LEFT WRIST G # 20 PATENT AND INTACT W/ NS @ 75 ML/HR. RIGHT WRIST G # 20 PATENT AND INTACT W/ NO S/S OF INFECTION/INFILTRATION NOTED. CALL LIGHT W/ REACH. BEDS LOCKED AND IN LOW POSITION. WILL CONTINUE TO MONITOR.
[2018-04-21] VITALS (7 sets, daily range): BP systolic 108–149; BP diastolic 47–94
[2018-04-21] MEDS: ALBUTEROL HALF STRENGTH 1.25 MG/3 ML VIAL.NEB NEB SCH ×4 (01:06→20:03)
[2018-04-21] MEDS: IPRATROPIUM NEB FS 0.5 MG/2.5 ML AMPUL.NEB NEB SCH ×4 (01:06→20:03)
[2018-04-21] MEDS: IV NS 0.9% 1,000 ML IV PRN ×2 (03:15→19:50)
[2018-04-21] MEDS: ACETYLCYSTEINE 10% SOLN 400 MG/4 ML VIAL NEB SCH ×3 (07:12→23:11)
[2018-04-21] MEDS: CEFEPIME 1 GM in IV D5W 50 ML IV SCH ×2 (08:21→20:42)
[2018-04-21] MEDS: ENOXAPARIN SODIUM 40 MG/0.4 ML DISP.SYRIN SQ SCH (08:21)
[2018-04-21] MEDS: hydrALAZINE HCL 10 MG TABLET GT SCH (08:21)
[2018-04-21] MEDS: Z GUARD REMEDY 2 OZ OINT TP SCH ×2 (08:21→21:40)
[2018-04-21] MEDS: ASCORBIC ACID 500 MG TABLET PO SCH (08:21)
[2018-04-21] MEDS: MULTIVITAMINS,THERAGRAN 1 UDTAB TABLET PO SCH (08:21)
[2018-04-21] MEDS: PANTOPRAZOLE 40 MG VIAL IV SCH (08:21)
[2018-04-21] MEDS: HYDROGEL DRESSING 90 GM TUBE TP SCH (08:22)
--- NOTE | 2018-04-21 09:56 | NUR ---
NOTIFIED DR LUJAN WE DON'T HAVE AN UPDATED CHEST X. OK TO ORDER NOW
[2018-04-21] MEDS: JEVITY 1.2 CAL 1,000 ML BOTTLE GT PRN (11:26)
--- NOTE | 2018-04-21 13:00 | NUR ---
DR GRACE JACKSON AT BEDSIDE FOR DEBRIDEMENT. PATIENT STABLE. NO COMPLICATIONS
--- NOTE | 2018-04-21 16:24 | NUR ---
DC ON HOLD DUE TO PATIENT NOT BEING ACCEPTED TO [facility]. PER SIDNEY ID TO CONFIRM IF/TYPE OF AX NEEDED FOR DC.
--- NOTE | 2018-04-21 18:33 | NUR ---
all due meds given and all needs met. patient denies pain when not moved, no sob, difficulty breathing. s/p debridement dressings in place no complications. patient safety, skin, and aspiration precautions in place. tube feeding no residual. iv site c/d/i/p. gautam to gravity intact patent
[2018-04-22] VITALS: BP 126/48
[2018-04-22] MEDS: ALBUTEROL HALF STRENGTH 1.25 MG/3 ML VIAL.NEB NEB SCH ×4 (01:01→19:56)
[2018-04-22] MEDS: IPRATROPIUM NEB FS 0.5 MG/2.5 ML AMPUL.NEB NEB SCH ×4 (01:01→19:56)
[2018-04-22 04:00] VITALS: BP 121/64
--- NOTE | 2018-04-22 07:30 | NUR ---
OPTICAL GLASS SAWYER INITIAL NOTES: RECEIVED PT IN BED SLEEPING, EASY TO AROUSE. TRACH PT CONNECTED TO COOL AEROSOL ORDERED. PT TOLERATING WELL. O2 SATURATION 99%. BACK UP TRACH AND AMBU BAG AT BEDSIDE. ON TELE MONITOR SR, HR 85. CHERY CATH IN PLACE DRAINING CLEAR YELLOW URINE. GT FEEDING CONNECTED AND RUNNING AT 65ML/HR. IV TO R WRIST IN PLACE, CONNECTED TO IV FLUIDS ORDERED. BED IN LOW LOCKED POSITION, CALL LIGHT WITHIN REACH. PLAN OF CARE DISCUSSED WITH PT. WILL CONTINUE TO MONITOR.
[2018-04-22] MEDS: ACETYLCYSTEINE 10% SOLN 400 MG/4 ML VIAL NEB SCH ×3 (07:52→23:31)
[2018-04-22 08:00] VITALS: BP 138/72
[2018-04-22] MEDS: MULTIVITAMINS,THERAGRAN 1 UDTAB TABLET PO SCH (08:24)
[2018-04-22] MEDS: hydrALAZINE HCL 10 MG TABLET GT SCH (08:24)
[2018-04-22] MEDS: PANTOPRAZOLE 40 MG VIAL IV SCH (08:24)
[2018-04-22] MEDS: ASCORBIC ACID 500 MG TABLET PO SCH (08:24)
[2018-04-22] MEDS: ENOXAPARIN SODIUM 40 MG/0.4 ML DISP.SYRIN SQ SCH (08:25)
[2018-04-22] MEDS: HYDROGEL DRESSING 90 GM TUBE TP SCH (08:28)
[2018-04-22] MEDS: CEFEPIME 1 GM in IV D5W 50 ML IV SCH (08:42)
[2018-04-22] MEDS: Z GUARD REMEDY 2 OZ OINT TP SCH ×2 (09:00→21:17)
[2018-04-22] MEDS: IV NS 0.9% 1,000 ML IV PRN (10:43)
[2018-04-22 12:00] VITALS: BP 143/69
--- NOTE | 2018-04-22 13:33 | NUR ---
RECEIVED CALL PER CATHERINE, PT HAS CRE AND KLEBSIELLA PNEUMONIAE IN SPUTUM. MD NOTIFIED.
[2018-04-22 16:00] VITALS: BP_SYST 128; BP_SYST 143; BP_DIAS 67; BP_DIAS 69
--- NOTE | 2018-04-22 16:00 | NUR ---
PT MOVED TO ROOM 102 FOR CONTACT ISOLATION.
[2018-04-22] MEDS: JEVITY 1.2 CAL 1,000 ML BOTTLE GT PRN (17:25)
--- NOTE | 2018-04-22 18:45 | NUR ---
RN FIRST ASSIST END NOTES: PT REMAINS IN BED, AWAKE. FOLLOWS COMMANDS AND RESPONSIVE TO VERBAL AND TACTILE STIMULI. TRACH IN PLACE AND CONNECTED TO COOL AEROSOL ORDERED. NO RESPIRATORY DISTRESS NOTED AT THIS TIME. NO S/S OF PAIN OR DISCOMFORT NOTED. IV FLUIDS RUNNING ORDERED, GT FEEDING ON HOLD S/P LEVAQUIN ADMINISTRATION. BED IN LOW LOCKED POSITION, CALL LIGHT WITHIN REACH. WILL ENDORSE TO PM SHIFT TO RESUME FEEDING AT 1930 AND FOR CONTINUITY OF CARE.
[2018-04-22] MEDS: LEVOFLOXACIN (500MG) 500 MG TABLET PO SCH (18:54)
[2018-04-22 20:00] VITALS: BP 156/68
[2018-04-23 00:08] VITALS: BP 159/74
[2018-04-23] MEDS: ALBUTEROL HALF STRENGTH 1.25 MG/3 ML VIAL.NEB NEB SCH ×4 (01:51→19:33)
[2018-04-23] MEDS: IPRATROPIUM NEB FS 0.5 MG/2.5 ML AMPUL.NEB NEB SCH ×4 (01:51→19:33)
[2018-04-23 04:00] VITALS: BP 154/86
[2018-04-23] MEDS: IV NS 0.9% 1,000 ML IV PRN (05:22)
--- NOTE | 2018-04-23 07:14 | NUR ---
SUPERVISOR WHITE SUGAR NOTES: RECEIVED PT ON BED ASLEEP BUT EASILY AROUSABLE. IN NO APPARENT DISTRESS. NO COMPLAINTS OF PAIN OR DISCOMFORT. ON TRACH, SATURATING WELL, NO SOB. GT INTACT, NO RESIDUAL NOTED AT THIS TIME. CHERY CATH INTACT AND PATENT. IV ON RFA #20 INTACT WITH IVF NS RUNNING AT 75ML/HR, INFUSING WELL. CALL LIGHT PLACED WITHIN REACH. KEPT CLEAN, DRY AND COMFORTABLE. WILL CONTINUE TO MONITOR PT.
[2018-04-23] MEDS: ACETYLCYSTEINE 10% SOLN 400 MG/4 ML VIAL NEB SCH ×2 (07:37→16:02)
[2018-04-23 08:00] VITALS: BP 134/73
[2018-04-23] MEDS: MULTIVITAMINS,THERAGRAN 1 UDTAB TABLET PO SCH (08:27)
[2018-04-23] MEDS: ASCORBIC ACID 500 MG TABLET PO SCH (08:27)
[2018-04-23] MEDS: hydrALAZINE HCL 10 MG TABLET GT SCH (08:27)
[2018-04-23] MEDS: PANTOPRAZOLE 40 MG VIAL IV SCH (08:27)
[2018-04-23] MEDS: HYDROGEL DRESSING 90 GM TUBE TP SCH (08:37)
[2018-04-23] MEDS: Z GUARD REMEDY 2 OZ OINT TP SCH (08:37)
[2018-04-23] MEDS: ENOXAPARIN SODIUM 40 MG/0.4 ML DISP.SYRIN SQ SCH (08:44)
[2018-04-23] MEDS: JEVITY 1.2 CAL 1,000 ML BOTTLE GT PRN (11:55)
[2018-04-23 12:00] VITALS: BP 123/64
[2018-04-23 16:00] VITALS: BP 141/85
[2018-04-23] MEDS: LEVOFLOXACIN (500MG) 500 MG TABLET PO SCH (17:04)
--- NOTE | 2018-04-23 19:30 | NUR ---
SENIOR ASIC ENGINEER NOTES: PT ON BED AWAKE AND ALERT. NO APPARENT DISTRESS NOTED. DENIES PAIN AT THIS TIME. BREATHING EVEN AND UNLABORED WITH NORMAL RESPIRATIONS. GT FEEDING INTACT AND PATENT, NO RESIDUAL NOTED AT THIS TIME. CHERY CATH INTACT AND PATENT WITH CLEAR YELLOW URINE DRAINING. TURNED AND REPOSITIONED Q2HRS AND NEEDED. KEPT CLEAN, DRY AND COMFORTABLE. WILL ENDORSE TO SHELVING SUPERVISOR FOR JACK.
--- NOTE | 2018-04-23 19:30 | NUR ---
TRANSMISSION TECHNICIAN NOTES: RECEIVED PT ON BED, EYES OPEN, NON VERBAL. IN NO APPARENT DISTRESS. NO S/S OF PAIN OR DISCOMFORT NOTED. NODS HEAD IN YES OR NO ANSWERS TO SIMPLE QUESTIONS. ON TRACH, SATURATING WELL, NO SOB. ON TELE MONITORING WITH SR 96. GT INTACT, NO RESIDUAL NOTED AT THIS TIME. CHERY CATH INTACT AND PATENT, FLOWING WITH YELLOW, CLEAR URINE. IV ON RFA #20 INTACT WITH IVF NS RUNNING AT 75ML/HR, INFUSING WELL. PER AM RN JOCELYNE, [facility]SP[facility]ATION IS ARRANGED. CALL LIGHT PLACED WITHIN REACH. KEPT CLEAN, DRY AND COMFORTABLE. WILL CONTINUE TO MONITOR PT.
--- NOTE | 2018-04-23 20:10 | NUR ---
REPORT GIVEN TO SNF CALLED [facility], GAVE REPORT TO MARCK COLINDRES. INFORMED HER ABOUT PT'S HEALTH CONDITION & BEING ON AEROSOL TRACH BARTOLOME # 6 & HAS CHERY CATH [address] WITH GOOD OUTPUT. JENS STATED SHE WILL CALL US BACK IF HAVE MORE QUESTIONS ABOUT PT CARE.
--- NOTE | 2018-04-23 21:03 | NUR ---
DISCHARGED PT TO SNF PT AWAKE, EYES OPEN, NO ACUTE CHANGES NOTED, IN STABLE CONDITION. VSS 126/60, 98, 20, 98.8,100%. ALL DISCHARGE INSTRUCTIONS GIVEN TO THE AMBULANCE PERSON SINCE PT IS A & O X 1, NON VERBAL. ALSO REPORT WAS GIVEN TO THE CLIMATOLOGY PROFESSOR @ [facility] E[facility]ER & VERBALIZED UNDERSTANDING. BELONGING LIST REVIEWED & SIGNED BY MEDICAL INSURANCE CODER. CHERY CATH REMAINS IN PLACE, ID BAND, IV CATH REMOVED WITH MINIMAL BLEEDING, PRESSURE DRESSING APPLIED. GT IN PLACE, INTACT, PATENT. BODY CHECK DONE, PHOTOS TAKEN, PLACED IN THE CHART. TRACH SET UP WAS DONE BY RT CIRA FOR TRANSPORTATION. PT LEFT SOH IN STABLE CONDITION. WILL INFORM THE DTR WELL.
--- NOTE | 2018-04-23 21:10 | NUR ---
DTR NOTIFIED CALLED DTKAYY MCNEIL TO INFORM THAT PT HAS BEEN TRANSFERRED TO SNF, DTR STATED SHE IS ALREADY AWARE, SINCE PAIL BAILER EBONIE NOTIFIED HER ALREADY.
== END 2018-04-23 21:03 | disposition other institution (70) | DRG 133 ==
LOC: ER 08:40 → ICU 11:04 → TELE-TD 04-20 21:06 → TELE1 04-21 12:52
PROVIDERS: ADMIT Nurse Practitioner Acute Care; ATTEND Nurse Practitioner Acute Care
PROC: 5A1945Z Respiratory Ventilation, 24-96 Consecutive Hours (ICD-10-PCS; 2018-04-19)
PROC: 0JBP0ZZ Excision of Left Lower Leg Subcutaneous Tissue and Fascia, Open Approach (ICD-10-PCS; principal; 2018-04-21)
DX: J96.21 Acute and chronic respiratory failure with hypoxia (principal); N17.0 Acute kidney failure with tubular necrosis; R65.11 Systemic inflammatory response syndrome (SIRS) of non-infectious origin with acute organ dysfunction; G93.40 Encephalopathy, unspecified; J44.1 Chronic obstructive pulmonary disease with (acute) exacerbation; S27.1XXA Traumatic hemothorax, initial encounter; Z93.0 Tracheostomy status; R13.10 Dysphagia, unspecified; E88.09 Other disorders of plasma-protein metabolism, not elsewhere classified; D68.59 Other primary thrombophilia; I25.2 Old myocardial infarction; I25.10 Atherosclerotic heart disease of native coronary artery without angina pectoris; N39.0 Urinary tract infection, site not specified; Z93.1 Gastrostomy status; Z87.81 Personal history of (healed) traumatic fracture; V89.2XXS Person injured in unspecified motor-vehicle accident, traffic, sequela; I72.2 Aneurysm of renal artery; Z79.899 Other long term (current) drug therapy; I70.0 Atherosclerosis of aorta; E03.9 Hypothyroidism, unspecified; R91.1 Solitary pulmonary nodule; E83.42 Hypomagnesemia; Z74.09 Other reduced mobility; T79.7XXA Traumatic subcutaneous emphysema, initial encounter; X58.XXXA Exposure to other specified factors, initial encounter; D64.9 Anemia, unspecified; E83.51 Hypocalcemia; Y92.89 Other specified places as the place of occurrence of the external cause; B96.1 Klebsiella pneumoniae [K. pneumoniae] as the cause of diseases classified elsewhere; Z87.891 Personal history of nicotine dependence; Z86.19 Personal history of other infectious and parasitic diseases; I10 Essential (primary) hypertension
CPT/HCPCS: 31720; 36415; 36600; 71045-TC; 71250-TC; 80048-TC; 80076-TC; 81000-TC; 82803-TC; 83605-TC; 83735-TC; 84100-TC; 84484-TC; 85025-TC; 85730-TC; 87040-TC; 87070-TC; 87081-TC; 87086-TC; 87186-TC; 94002-TC; 94003-TC; 94640-TC; 94664-TC; 94760-TC; 94762-TC; A4216; A4606; A6248; A6253; A6402; A6403; C9113; J0692; J1650; J1956; J3370; J3475; J7030; J7060; Z7610

== ENCOUNTER 2018-12-20 15:21 | Inpatient (IN) | payer OTHER, MEDICARE ==
[~2018-12-20] VITALS: Ht 165.1 cm; Wt 102.6 kg
--- NOTE | 2018-12-20 05:30 | NUR ---
RN [facility] NOTES, INFORMED YENI OCEANOGRAPHER GEOLOGICAL THAT BLOOD SUGAR IS TRENDING DOWN AGAIN, NOTED 54MG/dL, TEST REPEATED AND OBTAINED 61MG/dL, AND RECEIVED A NEW ODER TO DC D5 1/2 ANS START D5W AT SAME RATE, NOTED AND CARRIED OUT.
[~2018-12-20 15:21] MED LIST changes: +ACET-2605 GT; -ACET325C5 PO; +ALBU2.5V38 IH; -HYDR10SY15 GT; +HYDR2TAB7 GT; -HYDR4TAB4 PO; -HYDR4TAB57 GT; +LABE200T5 GT; -LABE5VIA4 IV; -MELA3TAB GT; +NUT.237L65 GT; -PANT20TA2 PO; -POTA10CA43 PO; +POTA20LI4 GT
[2018-12-20] MEDS ORDERED: FAMO20TA8 GT (15:50)
[2018-12-20] MEDS ORDERED: IPRA3AMP23 IH ×2 (15:50)
[2018-12-20] MEDS ORDERED: MAGN400O6 GT (15:50)
[2018-12-20] MEDS ORDERED: IBUP-1953 GT (15:50)
[2018-12-20] MEDS ORDERED: OMEP20CA10 GT (15:50)
[2018-12-20] MEDS ORDERED: DOCU50LI GT (15:50)
[2018-12-20] MEDS ORDERED: ACET650S26 GT ×2 (15:50)
[2018-12-20] MEDS ORDERED: ACET-868 GT (15:50)
[2018-12-20] MEDS ORDERED: HYDR-4384 GT (15:50)
[2018-12-20] MEDS ORDERED: NA P133E RC (15:50)
[2018-12-20] MEDS ORDERED: VIT500LI GT (15:50)
[2018-12-20] MEDS ORDERED: BISA10SU8 RC (15:50)
[2018-12-20] MEDS ORDERED: AMIN30LI27 GT (15:50)
[2018-12-20] MEDS ORDERED: MELA3TAB GT (15:50)
[2018-12-20] MEDS ORDERED: MULT-24 GT (15:50)
[2018-12-20] MEDS ORDERED: IV NS 0.9% 500 ML BAG IV ONE (16:00)
--- NOTE | 2018-12-20 16:05 | NUR ---
KATHY, FROM SNF DUE TO ABNORMAL LAB WBC 34.33, ON ATB IV FOR UTI. PT IS AOX2 WITH BLE CONTRACTURES. SKIN INTACT, NO ACUTE DISTRESS NOTED. VSS AND RR EVEN AND UNLABORED ON 2L O2 VIA NC. BILATERAL WHEEZING ON AUSCULTATION. PLACED ON MONITOR, WILL CONT TO OBSERVE.
[2018-12-20 16:12] LABS: BASOPHILS # (AUTO) 0.1 /CMM (0.0-0.2); BASOPHILS % (AUTO) 0.3 % (0.0-2.0); EOSINOPHILS % (AUTO) 0.9 % (0.0-6.0); HEMATOCRIT 32 % (33-45); HEMOGLOBIN 10.3 g/dL (11.5-14.8); LYMPHOCYTES % (AUTO) 3.8 % (20.0-44.0); MEAN CORPUSCULAR HGB CONC 32 g/dl (31.0-36.0); MEAN CORPUSCULAR VOLUME 93 fL (82-100); MONOCYTES # (AUTO) 1.6 /CMM (0.1-1.30); MONOCYTES % (AUTO) 5.7 % (2.0-12.0); NEUTROPHILS # (AUTO) 24.8 /CMM (1.8-8.9); NEUTROPHILS % (AUTO) 89.3 % (43.0-81.0); PLATELET COUNT (AUTO) 130 /CMM (150-450); RED BLOOD CELL COUNT(AUTO) 3.48 MIL/uL (4.0-5.2); WHITE BLOOD COUNT (AUTO) 27.7 K/uL (4.3-11.0)
[2018-12-20 16:17] LABS: CALCIUM, SERUM 8.5 mg/dL (8.5-10.1); CARBON DIOXIDE 18 mmol/L (21-32); CHLORIDE 106 mmol/L (98-107); CREATININE 0.7 mg/dL (0.6-1.3); GLUCOSE 94 mg/dL (74-106); POTASSIUM 3.9 mmol/L (3.5-5.1); SODIUM SERUM 135 mmol/L (136-145); UREA NITROGEN, BLOOD 32 mg/dL (7-18)
[2018-12-20 16:24] LABS: ALANINE AMINOTRANSFERASE 35 U/L (12-78); ALBUMIN 1.5 g/dL (3.4-5.0); ALKALINE PHOSPHATASE 261 U/L (46-116); ASPARTATE AMINOTRANSFERASE 31 U/L (15-37); BILIRUBIN,DIRECT 0.5 mg/dL (0.0-0.2); BILIRUBIN,TOTAL 0.7 mg/dL (0.2-1.0); TOTAL PROTEIN, SERUM 6.3 g/dL (6.4-8.2)
[2018-12-20] MEDS ORDERED: CEFTRIAXONE 1GM BAG (ER ONLY) 50 ML IV ONE ×3 (17:00→18:00)
[2018-12-20] MEDS ORDERED: ASPIRIN 81 MG TAB.CHEW GT ONE (17:00)
[2018-12-20 17:21] LABS: BAND % (MANUAL) 6 % (0.0-5.0); EOSINOPHILS % (MANUAL) 1 % (0-4); LYMPHOCYTES % (MANUAL) 5 % (16-48); MONOCYTES % (MANUAL) 5 % (0-11.0); NEUTROPHILS % (MANUAL) 83 (42-76)
[2018-12-20] MEDS ORDERED: ASPIRIN 81 MG TAB.CHEW ONE (17:28)
[2018-12-20 17:34] LABS: APPEARANCE,URINE Slightly Cloudy (CLEAR); BILIRUBIN,URINE Negative (NEGATIVE); BLOOD, URINE Large Ery/uL (NEGATIVE); COLOR,URINE Yellow (YELLOW); KETONES,URINE Negative (NEGATIVE); LEUKOCYTE ESTERASE ,URINE Small (NEGATIVE); NITRITE, URINE Negative (NEGATIVE); PROTEIN,URINE Negative (NEGATIVE); UGLUCOSE Negative (NEGATIVE); UROBILINOGEN,URINE 0.2 EU/dL (0.2)
[2018-12-20] MEDS ORDERED: CLOPIDOGREL BISULFATE 75 MG TABLET ONE (17:45)
--- NOTE | 2018-12-20 17:56 | NUR ---
CALLED HOUSE SUP FOR A TELE BED
[2018-12-20] MEDS ORDERED: CLOPIDOGREL BISULFATE 75 MG TABLET GT ONE (18:00)
--- NOTE | 2018-12-20 18:04 | NUR ---
Patient is resting comfortably in bed with eyes closed. Easily aroused. VSS
[2018-12-20 18:09] LABS: BACTERIA,URINE Rare /HPF (None Seen); SQUAMOUS EPITHELIAL CELL,UR Few /HPF (None Seen); WBC,URINE 0-2 /HPF (0-3)
--- NOTE | 2018-12-20 18:14 | NUR ---
TELE BED 327-1 GIVEN. RN WILL BE VIA
--- NOTE | 2018-12-20 18:42 | NUR ---
REPORT GIVEN TO KEVIN FOR 327-1 TELE
--- NOTE | 2018-12-20 19:05 | NUR ---
[facility]
--- NOTE | 2018-12-20 19:30 | NUR ---
TELE/RN OPENING NOTES PT RECEIVED FROM ER VIA [facility]. A/OX2. PLACED ON 2L O2 VIA NC, BREATHING EVEN AND UNLABORED. DENIES SOB AND PAIN AT THIS TIME. PLACED ON TELE MONITOR SHOWING SR 89. GT IN PLACE. IV TO LFA AND RAC PATENT AND INTACT. ORIENTED PT TO ROOM AND CALL LIGHT. HOB ELEVATED, SIDE RAILS UPX3 AND BED ALARM ON FOR SAFETY. PER DAY SHIFT RN, DR. REINOSO SAW PT IN ER, STILL ACCEPTING MD AND AWAITING ADMITTING ORDERS. BED IN LOW/LOCKED POSITION WITH CALL LIGHT IN REACH. WILL CONTINUE TO MONITOR
[2018-12-20 20:00] VITALS: BP 112/66
--- NOTE | 2018-12-20 20:28 | NUR ---
TECH AT BEDSIDE FOR ECHO
[2018-12-20] MEDS ORDERED: ACETAMINOPHEN 325 MG TABLET PO PRN (22:00)
[2018-12-20] MEDS ORDERED: MAGNESIUM HYDROXIDE 30 ML UDC PO PRN (22:00)
[2018-12-20] MEDS ORDERED: ONDANSETRON HCL/PF 4 MG/2 ML VIAL IVP PRN (22:00)
[2018-12-20] MEDS ORDERED: MAG HYDROX/AL HYDROX/SIMETH 30 ML UDC PO PRN (22:00)
[2018-12-20] MEDS ORDERED: ZOLPIDEM TARTRATE 5 MG TABLET PO PRN (22:00)
--- NOTE | 2018-12-20 22:36 | NUR ---
SPOKE TO NURSE FROM [facility]. CLARIFIED DIET ORDER, STATES PT TOLERATES PO INTAKE BUT MEDS ARE GIVEN VIA GTUBE. Addendum: 12/20/18 at 0502 by BENNY BACH RN ASKED IF SHE COULD SEND MEDICATION LIST, FAX NUMBER PROVIDED
[2018-12-20] MEDS ORDERED: VANCOMYCIN 1 GM in IV D5W 250ml IV ONE (23:00)
[2018-12-20] MEDS ORDERED: VANCOMYCIN 1 GM VIAL ONE (23:10)
[2018-12-20] MEDS ORDERED: PIPERACILLIN /TAZOBACTAM 2.25 G VIAL IV ONE (23:11)
[2018-12-20] MEDS: ENOXAPARIN SODIUM 40 MG/0.4 ML DISP.SYRIN SQ SCH (23:18)
[2018-12-20] MEDS: ALBUTEROL FS 2.5 MG/0.5 ML VIAL.NEB NEB SCH (23:38)
[2018-12-20] MEDS: IPRATROPIUM NEB FS 0.5 MG/2.5 ML AMPUL.NEB NEB SCH (23:39)
[2018-12-21] MEDS ORDERED: DEXTROSE 50%-WATER 50 ML DISP.SYRIN ONE ×2 (01:05→01:22)
[2018-12-21 01:28] LABS: ABG BASE EXCESS -8.9 mmol/L; ABG OXYGEN SATURATION 95.7 % (92.0-98.5); ABG PCO2 31.9 mmHg (35.0-45.0); ABG PH 7.323 (7.350-7.450); ABG PO2 85.5 mmHg (75.0-100.0); AaDO2 595.6 mmHg; COHb 0.2 % (0.5-1.5); MetHb 0.5 % (0.0-1.5); SITE, ABG Right Radial
[2018-12-21] MEDS: DEXTROSE 50%-WATER 50 ML DISP.SYRIN IV PRN ×3 (01:29→05:13)
[2018-12-21] MEDS ORDERED: IV NS 0.9% 1,000 ML IV SCH (01:30)
[2018-12-21 01:37] LABS: BASOPHILS # (AUTO) 0.1 /CMM (0.0-0.2); BASOPHILS % (AUTO) 0.5 % (0.0-2.0); EOSINOPHILS % (AUTO) 0.6 % (0.0-6.0); HEMATOCRIT 31 % (33-45); LYMPHOCYTES # (AUTO) 0.7 /CMM (0.8-4.8); LYMPHOCYTES % (AUTO) 2.8 % (20.0-44.0); MEAN CORPUSCULAR HGB CONC 32 g/dl (31.0-36.0); MEAN CORPUSCULAR VOLUME 94 fL (82-100); MONOCYTES # (AUTO) 1.3 /CMM (0.1-1.30); MONOCYTES % (AUTO) 4.8 % (2.0-12.0); NEUTROPHILS # (AUTO) 24.8 /CMM (1.8-8.9); NEUTROPHILS % (AUTO) 91.3 % (43.0-81.0); PLATELET COUNT (AUTO) 150 /CMM (150-450); RED BLOOD CELL COUNT(AUTO) 3.34 MIL/uL (4.0-5.2); WHITE BLOOD COUNT (AUTO) 27.2 K/uL (4.3-11.0)
--- NOTE | 2018-12-21 01:40 | NUR ---
TELE/RN NOTES PT NOTED WITH INCREASED WORK OF BREATHING AND WHEEZING. SPO2 ON 3L NC SHOWING 50'S, CHECKED WITH ANOTHER VITAL SIGN MACHINE AND STILL IN THE 50'S. RAPID RESPONSE CALLED @ 0100. PT RESPONSIVE TO TOUCH. HOB ELEVATED, PLACED ON NONREBREATHER MASK. 114/42, HR 99, SPO2 100% ON NONREBREATHER. ROSEANN (FLAT SURFACER), CARIN (ICU), YUNIEL AND MATHEUS (3W RN'S) DANG (NURS. SUP.), PERLA AND APARNA (RT) ALL AT BEDSIDE @ 0103: BGL= 16, CHECKED ON OTHER EXTREMITY, BGL=17. @ 0105: STAT ABG ORDERED. D50 ADMINISTERED. @ 0110: JARAD DURHAM NOTIFIED, CAME TO ASSESS PT. @ 0112: STAT CBC, CMP, LACTIC ACID, TROPONIN, D-DIMER, EKG AND CXR - RADIOLOGY NOTIFIED @ 0116: BGL RECHECKED = 56. JARAD DURHAM WITH ORDERS FOR ADDITIONAL D50. @ 0120: LAB AT BEDSIDE @ 0122: RADIOLOGY AT BEDSIDE FOR CXR, EKG DONE - SR 100. BP 108/63, HR 99, SPO2 97% ON SIMPLE MASK @ 10L @ 0130: ADDITIONAL D50 GIVEN. TITRATED TO 5L, SPO2 92%. JARAD DURHAM WITH ORDERS TO TRANSFER TO [facility] FOR CLOSER MONITORING. SHE WILL INPUT FURTHER ORDERS.
--- NOTE | 2018-12-21 01:42 | NUR ---
TRANSFERRED PT TO [facility] ROOM 106, BEDSIDE REPORT GIVEN
[2018-12-21] MEDS: PIPERACILLIN /TAZOBACTAM 4.5 G in IV D5W 50 ML IV SCH ×4 (01:43→17:10)
[2018-12-21 01:46] LABS: CALCIUM, SERUM 8.4 mg/dL (8.5-10.1); CARBON DIOXIDE 17 mmol/L (21-32); CHLORIDE 106 mmol/L (98-107); CREATININE 0.7 mg/dL (0.6-1.3); GLUCOSE 239 mg/dL (74-106); POTASSIUM 3.5 mmol/L (3.5-5.1); SODIUM SERUM 136 mmol/L (136-145); UREA NITROGEN, BLOOD 26 mg/dL (7-18)
--- NOTE | 2018-12-21 01:50 | NUR ---
0150 BEDSIDE REPORT RECEIVED FROM MAURO ZAPATA WITH QUESTIONS ANSWERED. RECEIVED FROM 3W 78 YEAR OLD LADY VIA BED, EYES CLOSED BUT RESPONSIVE TO STIMULI. ON FACE MASK AT 10LPM. NO SIGNS OF RESPIRATORY DISTRESS NOTED. VITAL SIGNS TAKEN, O2 SATURATION AT 100%. RR IN THE 20S. BS RE CHECKED BY MAURO ZAPATA AND OBTAINED 95MG/DL RESULT. FAMILY MEMBERS NOTIFIED OF PATIENT'S TRANSFER TO [facility] BY MAURO ZAPATA. TURNED AND REPOSITIONED. HOB ELEVATED FOR MAXIMUM OXYGENATION. WILL CONT. TO MONITOR PT. CLOSELY.
[2018-12-21 02:00] VITALS: BP 126/70
[2018-12-21 02:00] LABS: ALANINE AMINOTRANSFERASE 30 U/L (12-78); ALBUMIN 1.5 g/dL (3.4-5.0); ALKALINE PHOSPHATASE 244 U/L (46-116); ASPARTATE AMINOTRANSFERASE 24 U/L (15-37); BILIRUBIN,TOTAL 0.7 mg/dL (0.2-1.0)
[2018-12-21] MEDS ORDERED: BISACODYL SUPP (10 MG) 10 MG/SUPP.RECT SUPP.RECT RC PRN (02:00)
[2018-12-21] MEDS ORDERED: MAGNESIUM HYDROXIDE 30 ML UDC GT PRN (02:00)
[2018-12-21] MEDS ORDERED: ACETAMINOPHEN 650 MG/20.3 ML UDC GT PRN (02:00)
[2018-12-21] MEDS ORDERED: MISCELLANEOUS MED 1 EA EA GT PRN (02:00)
[2018-12-21] MEDS ORDERED: Medication Not On Formulary EA (Ipratropium/Albuterol Sulfate (Duoneb 2.5-0.5 Mg/3 Ml So IH PRN (02:00)
[2018-12-21] MEDS ORDERED: NA PHOS,M-B/NA PHOS,DI-BA 1 EA ENEMA RC PRN (02:00)
--- NOTE | 2018-12-21 02:10 | NUR ---
RN [facility] NOTES, PATIENT IN BED, RECEIVED BY CHARGE NURSE MAURO MON FROM ROOM 327-1, PATIENT WITH EYES CLOSE, BUT AROUSABLE TO TACTILE STIMULI, SHALLOW BREATHING NOTED RR IN HIGH 20S, ON SIMPLE MASK AT 7LPM AT 100% O2 SAT LEVEL AT THIS TIME, UPON ARRIVAL ON [facility] FLOOR BP 126/70, 77, 100%, 97.6, BS 95, WILL CONTINUE TO MONITOR CLOSELY.
--- NOTE | 2018-12-21 02:11 | NUR ---
CALLED BOTH FAMILY MEMBERS LISTED ON PT'S FACE SHEET. BOTH WITH NO ANSWER, LEFT VOICEMAIL TO CALL BACK.
--- NOTE | 2018-12-21 02:20 | NUR ---
BASS FISHER. 3RD FLOOR TELE ACTIVATED DATE NIGHT CAREGIVER FOR, LOW OXYGEN SATURATION. PT WAS ON OXYGEN VIA NASAL CANNULA. SAT 55%, PER PRIMARY RN. MYSELF EVALUATE THE PT . WAS AWAKE, ALERT. OXYGEN VIA NONREBREATHER, SAT 98%. BLOOD SUGAR 16, DW50 IV STAT GIVEN. 15 MINUTES LATER REPEATED BLOOD SUGAR WAS 17. AGAIN REPEATED DW50%, 15 MINT LATER BLOOD SUGAR WAS 56. CHEST WAS CONGESTED, CHEST X RAY ORDERED, CHRISTAL DURHAM EVALUATED THE PT AND TRANSFER THE PT TO [facility].
[2018-12-21] MEDS ORDERED: IV D5/0.45 NACL 1,000 ML IV PRN (02:30)
--- NOTE | 2018-12-21 02:40 | NUR ---
RN [facility] NOTES, RECHECKED BLOOD SUGAR AT THIS TIME, AND BLOOD SUGAR 80MG/dL AT THIS TIME, WILL START D5 1/2 NA AT 100ML/HR ORDERED, AND WILL CONTINUE TO MONITOR CLOSELY.
[2018-12-21] MEDS: ALBUTEROL FS 2.5 MG/0.5 ML VIAL.NEB NEB SCH ×6 (04:00→23:44)
[2018-12-21] MEDS: IPRATROPIUM NEB FS 0.5 MG/2.5 ML AMPUL.NEB NEB SCH ×6 (04:00→23:44)
[2018-12-21] MEDS: BLOOD SUGAR DIAGNOSTIC 1 EACH STRIP IN SCH ×5 (05:27→22:19)
--- NOTE | 2018-12-21 05:36 | NUR ---
RN [facility] NOTES, AFTER RECHECK BLOOD SUGAR, BLOOD SUGAR NOTED 71MG/dL, WILL CONTINUE TO MONITOR CLOSELY.
[2018-12-21] MEDS: IV D5W 1,000 ML IV PRN ×3 (06:05→18:17)
--- NOTE | 2018-12-21 06:38 | NUR ---
RN [facility] NOTES, NOTED PATIENT WITH VAGINAL BLEEDING ON DIAPER, INFORM YENI INVESTIGATIVE WRITER AND STATED TO ENDORSE WITH DAY SHIFT FOR ONCOLOGY F/U, CONTINUE LOVENOX, AND CHECK PATIENT IF SHE HAS HEMORRHOIDS, WILL ENDORSE TO ONCOMING SHIFT, PATIENT WITH EPISODES OF HYPOGLYCEMIA THROUGHOUT THE SHIFT, CONTINUE ON SIMPLE MASK AT 7LPM WITH OPTIMAL SATURATION DURING THE REST OF THE SHIFT, WILL ENDORSE TO ONCOMING SHIFT FOR CONTINUATION OF CARE.
[2018-12-21 06:41] LABS: BASOPHILS % (AUTO) 0.1 % (0.0-2.0); EOSINOPHILS % (AUTO) 0.4 % (0.0-6.0); HEMATOCRIT 29 % (33-45); HEMOGLOBIN 9.4 g/dL (11.5-14.8); LYMPHOCYTES # (AUTO) 0.7 /CMM (0.8-4.8); LYMPHOCYTES % (AUTO) 3.1 % (20.0-44.0); MEAN CORPUSCULAR HGB CONC 32 g/dl (31.0-36.0); MEAN CORPUSCULAR VOLUME 93 fL (82-100); MONOCYTES # (AUTO) 1.4 /CMM (0.1-1.30); NEUTROPHILS # (AUTO) 21.4 /CMM (1.8-8.9); NEUTROPHILS % (AUTO) 90.4 % (43.0-81.0); PLATELET COUNT (AUTO) 155 /CMM (150-450); RED BLOOD CELL COUNT(AUTO) 3.12 MIL/uL (4.0-5.2); WHITE BLOOD COUNT (AUTO) 23.7 K/uL (4.3-11.0)
[2018-12-21 06:51] LABS: ALANINE AMINOTRANSFERASE 29 U/L (12-78); ALKALINE PHOSPHATASE 231 U/L (46-116); ASPARTATE AMINOTRANSFERASE 23 U/L (15-37); BILIRUBIN,TOTAL 0.7 mg/dL (0.2-1.0); CALCIUM, SERUM 8.1 mg/dL (8.5-10.1); CARBON DIOXIDE 15 mmol/L (21-32); CHLORIDE 106 mmol/L (98-107); CREATININE 0.8 mg/dL (0.6-1.3); GLUCOSE 263 mg/dL (74-106); MAGNESIUM 1.8 mg/dL (1.8-2.4); PHOSPHORUS 3.7 mg/dL (2.5-4.9); POTASSIUM 3.5 mmol/L (3.5-5.1); SODIUM SERUM 137 mmol/L (136-145); TOTAL PROTEIN, SERUM 5.9 g/dL (6.4-8.2); UREA NITROGEN, BLOOD 23 mg/dL (7-18)
[2018-12-21] MEDS: FAMOTIDINE (20 MG) 20 MG TABLET GT SCH ×2 (06:58→17:04)
[2018-12-21 07:14] LABS: ALBUMIN 1.4 g/dL (3.4-5.0)
[2018-12-21] MEDS ORDERED: Medication Not On Formulary EA (Ipratropium/Albuterol Sulfate (Duoneb 2.5-0.5 Mg/3 Ml So IH SCH (07:35)
--- NOTE | 2018-12-21 07:44 | NUR ---
[facility] RN NOTE PATIENT IN BED ALERT. AWAKE, VERBALLY RESPONSIVE ,ON O2 VIA SIMPLE MASK 7L ,SAT 100% , ON TELE MONITOR SR HR , RT FA HL 100. LT FA HL INTACT , ON IVF ORDERED BED IN LOWEST AND LOCKED POSITION , RESPIRATION STILL LABORED, REPOSITION DINE , BED IN LOWEST AND LOCKED POSITION , CALL LIGHT WITHIN REACH WILL CONT TO MONITOR CLOSELY
[2018-12-21 07:52] LABS: CHOLESTEROL 67 mg/dL (<200); HDL CHOLESTEROL 11 mg/dL (40-60); LDL 40 mg/dL (0-99); TRIGLYCERIDES 66 mg/dL (30-150)
[2018-12-21 08:00] VITALS: BP 124/63
[2018-12-21] MEDS ORDERED: ENOXAPARIN SODIUM 40 MG/0.4 ML DISP.SYRIN SQ SCH (09:00)
[2018-12-21] MEDS: DOCUSATE SODIUM LIQ 100 MG/10 ML UDC GT SCH (09:09)
[2018-12-21] MEDS: ACETAMINOPHEN 650 MG/20.3 ML UDC GT SCH (09:09)
[2018-12-21] MEDS: MULTIVITAMINS,THERAGRAN 1 UDTAB TABLET GT SCH (09:09)
[2018-12-21] MEDS: ASCORBIC ACID 500 MG TABLET PO SCH (09:10)
[2018-12-21] MEDS: PROSOURCE / PROSTAT (PYXIS) 30 ML UDC GT SCH (09:10)
[2018-12-21] MEDS ORDERED: POTASSIUM CHLORIDE 20 MEQ TAB.PRT.SR PO SCH (09:13)
[2018-12-21] MEDS ORDERED: IPRATROPIUM NEB FS 0.5 MG/2.5 ML AMPUL.NEB NEB PRN (09:30)
[2018-12-21] MEDS ORDERED: ALBUTEROL FS 2.5 MG/0.5 ML VIAL.NEB NEB PRN (09:30)
[2018-12-21] MEDS ORDERED: FEE PK DOSING 1 MIN EA MC ONE (09:32)
[2018-12-21 10:01] VITALS: BP 124/63
--- NOTE | 2018-12-21 10:03 | NUR ---
[facility] RN NOTE DR LUJAN AT BEDSIDE, AWARE THAT PATIENT VERY CONGESTED AND RT AT BEDSIDE .NASAL SUCTION DONE WITH BLOODY SECRETION NOTED ALSO AWARE OF ABG RESULT. WILL F\U
[2018-12-21] MEDS: ACETYLCYSTEINE 10% SOLN 400 MG/4 ML VIAL NEB SCH ×3 (11:00→23:44)
[2018-12-21 12:00] VITALS: BP 128/70
[2018-12-21] MEDS: PANTOPRAZOLE 40 MG/PACK PACK GT SCH (12:18)
--- NOTE | 2018-12-21 12:20 | NUR ---
WOUND CARE CONSULT: PT UNSTABLE TO BE TURNED FOR SKIN ASSESSMENT AT THIS TIME. DISCUSSED SKIN PROTECTION WITH NURSING STAFF. PT ON ANA ISOFLEX LOW AIRLOSS BED. WILL SEE PT PT CONDITION PERMITS.
--- NOTE | 2018-12-21 12:42 | NUR ---
EVAN RN NOTE SEEN BY WOUND CARE NURSE WITH NEW ORDER GIVEN
[2018-12-21] MEDS: IBUPROFEN 400 MG TABLET GT SCH ×2 (13:03→22:18)
[2018-12-21 13:42] LABS: ABG BASE EXCESS -8.8 mmol/L; ABG OXYGEN SATURATION 98.7 % (92.0-98.5); ABG PCO2 24.1 mmHg (35.0-45.0); ABG PO2 164.2 mmHg (75.0-100.0); AaDO2 237.1 mmHg; COHb 0.1 % (0.5-1.5); MetHb 0.7 % (0.0-1.5); O2Hb 97.9 % (94.0-97.0); SITE, ABG Right Radial
--- NOTE | 2018-12-21 13:48 | NUR ---
EVAN RN NOTE BLOOD SUGAR 160 MG\ DL WILL MONITOR CLOSELY, PATIENT ON IVF D5W AT 100 ML PER HOUR
--- NOTE | 2018-12-21 14:13 | NUR ---
EVAN RN NOTE PER SIDNEY RN ELECTRONICS COMPUTER MECHANIC OK TO PLACE MID LINE ,PATIENT ON ATB AND IVF, NURSING RECEPTION CLERK NOTIFIED
--- NOTE | 2018-12-21 14:56 | NUR ---
EVAN RN NOTE N BREATHING TX ORDERED BY RT
[2018-12-21 16:00] VITALS: BP_SYST 128; BP_SYST 129; BP_DIAS 70; BP_DIAS 82
--- NOTE | 2018-12-21 16:17 | NUR ---
EVAN RN NOTE SPOKE WITH SIDNEY NOTIFIED THAT PATIENT HAS VAGINAL AND GUM BLEEDING, NO NEW ORDER GIVEN ALSO AWARE THAT LT HIP SWOLLEN X RAY DONE ORDERED , WBC 23.7 DR LUJAN AWARE OF RECENT ABG RESULT WITH ORDER TO TITRATE NC OF O2 .RT NOTIFIED , PLACED ON 4L NC SAT 94% AT THIS TIME . BRIDGET FROM PICC LINE INSERTED RT UPPER ARM MID LINE . DR MCRAE AT BEDSIDE AWARE TROPONIN 0.141 NO NEW ORDER GIVEN AT THIS TIME , WILL CONT TO MONITOR CLOSELY,
[2018-12-21] MEDS: VANCOMYCIN 1 GM in IV D5W 250 ML IV SCH (16:56)
--- NOTE | 2018-12-21 17:13 | NUR ---
EVAN RN NOTE SPOKE WITH SIDNEY RN U.S. REPRESENTATIVE NOTIFIED THAT BLOOD SUGAR 138 ,OK TO HOLD COVERAGE WITH INSULIN EARLIER BLOOD SUGAR WAS 71 MG\ DL
--- NOTE | 2018-12-21 17:30 | NUR ---
EVAN RN NOTE REPORTED TO SIDNEY WADE NUTRITION INTERNSHIP LT HIP X RAY RESULT NO FRACTURE ,NO NEW ORDER GIVEN AT THIS TIME
--- NOTE | 2018-12-21 18:43 | NUR ---
CAFETERIA WORKER NOTE SIDNEY RN WOOL PULLER AWARE THAT WBC 23.7 ORDERED PROCALCITONIN ASLO NOTIFIED HAT PATIENT WAS VAGINAL BLEEDING AND ORAL BLEEDING OK TO HOLD LOVENOX FOR TODAY Addendum: 12/21/18 at 1903 by KARINA QUACH RN PATIENT BECOME MORE RESTLESS TRYING TO REMOTE ALL LINES ,SON AT BEDSIDE, PER SIDNEY OK TO PLACE SOFT RESTRAIN IF OK WITH FAMILY,
[2018-12-21 20:00] VITALS: BP 125/95
--- NOTE | 2018-12-21 20:00 | NUR ---
EVAN RN NOTE RECEIVED MORENO'S BEDSIDE REPORT FROM AM RN. RECEIVED PATIENT IN BED ALERT. AWAKE, VERBALLY RESPONSIVE BUT CONFUSED ,ON 4L O2 VIA NC ,SAT 95% , ON TELE MONITOR SR , RT FA IV LINE IS PATIENT AND INTACT ,RT UPPER ARM MIDLINE IS INTACT AND PATIENT WELL ON IVF ORDERED. FAMILY MEMBER IS AT THE BEDSIDE. PER CONTRACT COORDINATOR SIDNEY'S ORDER WILL HOLD LOVENOX UNTIL TOMORROW. PATIENT IS HAVING VAGINAL BLEEDING AND SOME GUM BLEEDING. ALL SAFETY MEASURES ARE IMPLEMENTED, BED IN LOWEST AND LOCKED POSITION , CALL LIGHT WITHIN REACH WILL CONT TO MONITOR PATIENT CLOSELY.
[2018-12-21] MEDS: ENOXAPARIN SODIUM 40 MG/0.4 ML DISP.SYRIN SQ SCH (22:00)
[2018-12-21] MEDS ORDERED: Medication Not On Formulary EA (Melatonin 3 MG) GT SCH (22:00)
--- NOTE | 2018-12-21 22:00 | NUR ---
EVAN RN NOTE BLOOD SUGAR 138 MG\ DL WILL MONITOR CLOSELY, PATIENT ON IVF D5W AT 100 ML PER HOUR .
[2018-12-22] VITALS (41 sets, daily range): BP systolic 49–142; BP diastolic 19–94
--- NOTE | 2018-12-22 01:00 | NUR ---
EVAN RN NOTE BLOOD SUGAR 152MG\ DL WILL MONITOR CLOSELY, PATIENT ON IVF D5W AT 100 ML PER HOUR
[2018-12-22] MEDS: BLOOD SUGAR DIAGNOSTIC 1 EACH STRIP IN SCH ×6 (01:17→21:23)
[2018-12-22] MEDS: PIPERACILLIN /TAZOBACTAM 4.5 G in IV D5W 50 ML IV SCH ×3 (01:17→11:55)
[2018-12-22] MEDS: IPRATROPIUM NEB FS 0.5 MG/2.5 ML AMPUL.NEB NEB SCH ×6 (03:15→23:22)
[2018-12-22] MEDS: ALBUTEROL FS 2.5 MG/0.5 ML VIAL.NEB NEB SCH ×6 (03:15→23:22)
[2018-12-22] MEDS: IV D5W 1,000 ML IV PRN (05:39)
[2018-12-22] MEDS: IBUPROFEN 400 MG TABLET GT SCH ×2 (05:40→13:17)
[2018-12-22] MEDS: FAMOTIDINE (20 MG) 20 MG TABLET GT SCH (05:41)
[2018-12-22] MEDS: ACETYLCYSTEINE 10% SOLN 400 MG/4 ML VIAL NEB SCH ×3 (06:58→23:22)
[2018-12-22 07:03] LABS: CALCIUM, SERUM 8.3 mg/dL (8.5-10.1); CARBON DIOXIDE 16 mmol/L (21-32); CHLORIDE 101 mmol/L (98-107); CREATININE 1.1 mg/dL (0.6-1.3); GLUCOSE 156 mg/dL (74-106); POTASSIUM 3.5 mmol/L (3.5-5.1); SODIUM SERUM 132 mmol/L (136-145); UREA NITROGEN, BLOOD 28 mg/dL (7-18)
--- NOTE | 2018-12-22 09:31 | NUR ---
WOUND CARE CONSULT: PT PRESENTS WITH MULTIPLE SKIN ISSUES INCLUDING SCARRING TO SACRUM AND LEFT HEEL, INTACT DEEP TISSUE INJURY TO RT LATERAL ANKLE, INCONTINENCE AND INCONTINENCE ASSOCIATED SKIN DAMAGE TO PERIANAL AND GLUTEAL FOLD AREAS, PRESENT ON ADMISSION. PT NOTED TO HAVE LARGE AREA OF RED DRAINAGE ON DIAPER. DISCUSSED WITH RETAIL ANALYST. RN TO DISCUSS WITH MD/AD OPERATIONS INTERN. RECOMMENDATIONS MADE FOR SKIN PROTECTION. DISCUSSED WITH NURSING STAFF. [facility] WILL SEE PRN. VASQUEZ IN AGREEMENT WITH PLAN OF CARE. Addendum: 12/22/18 at 0935 by RAMBO ZAPATA WNDNU Amended: Links added.
[2018-12-22] MEDS: ACETAMINOPHEN 650 MG/20.3 ML UDC GT SCH (10:16)
[2018-12-22] MEDS: DOCUSATE SODIUM LIQ 100 MG/10 ML UDC GT SCH (10:16)
[2018-12-22] MEDS: POTASSIUM CHLORIDE 20 MEQ POWDER PACKET GT SCH (10:16)
[2018-12-22] MEDS: MULTIVITAMINS,THERAGRAN 1 UDTAB TABLET GT SCH (10:17)
[2018-12-22] MEDS: ASCORBIC ACID 500 MG TABLET PO SCH (10:17)
--- NOTE | 2018-12-22 10:31 | NUR ---
GOT A CALL FROM LAB PATIENT'S LACTIC ACID IS 2.5. CREDIT OR LOANS OFFICER SIDNEY IS NOTIFIED. NO NEW ORDERS AT THIS TIME.
[2018-12-22] MEDS: PROSOURCE / PROSTAT (PYXIS) 30 ML UDC GT SCH (10:33)
[2018-12-22] MEDS: VANCOMYCIN 1 GM in IV D5W 250 ML IV SCH (11:54)
[2018-12-22] MEDS: PANTOPRAZOLE 40 MG/PACK PACK GT SCH ×2 (11:54→21:23)
[2018-12-22 12:59] LABS: BILIRUBIN,DIRECT 0.4 mg/dL (0.0-0.2)
--- NOTE | 2018-12-22 13:29 | NUR ---
rn notes patient is still bleeding vaginal and rectal, desaturating and became more lethargic, blood sugar is 37 dextrose iv push has been administered. physical damage appraiser Alhaji is at the bedside, son is at the bedside. patient's report is given daniel Marrero and right after report patient is being transferred to ICU.
[2018-12-22 13:31] LABS: ABG BASE EXCESS -11.1 mmol/L; ABG OXYGEN SATURATION 99.1 % (92.0-98.5); ABG PCO2 24.1 mmHg (35.0-45.0); ABG PH 7.355 (7.350-7.450); ABG PO2 250.5 mmHg (75.0-100.0); AaDO2 438.4 mmHg; COHb 0.2 % (0.5-1.5); MetHb 0.9 % (0.0-1.5); SITE, ABG Right Radial; VENT MODE, BG NRB
--- NOTE | 2018-12-22 13:50 | NUR ---
RN NOTE PT TRANSFERRED TO ICU. WITH ACLS PROTOCOL. REPORT GIVEN TO MAURO PATEL, PT WAS DESATURATING ON NC AND SOB PRIOR TRANSFER. NON REBREATHER MASK APPLIED, VS BP 102/56, HR 73, SATURATION 94%. RR 24 Addendum: 12/22/18 at 1943 by MARKIE HUMPHRIES RN SIDNEY EVERETT SEEN PT AT [facility] AND ORDERED TO TRANSFER TO ICU. SON WAS AT BED SIDE AT TIME OF TRANSFER, AWARE ABOUT SITUATION AND SPOKE WITH SIDNEY EVERETT NP.
[2018-12-22] MEDS ORDERED: PANTOPRAZOLE 40 MG VIAL IV SCH (14:00)
[2018-12-22] MEDS: IV D5/ 0.9% NACL 1,000 ML IV PRN ×2 (14:16→22:00)
[2018-12-22 14:37] LABS: BASOPHILS % (AUTO) 0.2 % (0.0-2.0); HEMATOCRIT 26 % (33-45); HEMOGLOBIN 8.2 g/dL (11.5-14.8); LYMPHOCYTES # (AUTO) 0.8 /CMM (0.8-4.8); LYMPHOCYTES % (AUTO) 3.6 % (20.0-44.0); MEAN CORPUSCULAR HGB CONC 32 g/dl (31.0-36.0); MEAN CORPUSCULAR VOLUME 95 fL (82-100); MONOCYTES # (AUTO) 1.4 /CMM (0.1-1.30); MONOCYTES % (AUTO) 6.4 % (2.0-12.0); NEUTROPHILS # (AUTO) 19.4 /CMM (1.8-8.9); NEUTROPHILS % (AUTO) 88.8 % (43.0-81.0); PLATELET COUNT (AUTO) 179 /CMM (150-450); WHITE BLOOD COUNT (AUTO) 21.8 K/uL (4.3-11.0)
--- NOTE | 2018-12-22 15:10 | NUR ---
ICU/RN-RECEIVED PT. FROM JOSIANE PATEL, PT. IS ASLEEP, AROUSABLE, OCCASIONALLY FOLLOWS SIMPLE COMMANDS. BREATHING SPONTANEOUSLY TO ROOM AIR W/ O2 SUPPORT OF 4 L NC, SATS.-NOT TRACKING. PT. EXTREMITIES ARE COLD. WILL TRY TO KEEP EXTREMITIES WARM TO BE ABLE TO CHECK PULSE OX. EKG SR W/ HR-85/MIN. BP-84/50. WILL MONITOR CLOSELY AND WILL REFER ACCORDINGLY PER PROTOCOL.
--- NOTE | 2018-12-22 16:00 | NUR ---
ICU/RN- CRN INSERTED A FC ON PT. X1 ATTEMPT VIA ASEPTIC TECHNIQUE. NOTED PT. TO HAVE BLEEDING PER VAGINA. ON ASSESSMENT BLEEDING NOTED FROM THE URETHRA, MANUAL CBI W/ NS INITIATED BY JOSIANE PATEL PER MD ORDER, OBTAINED A LOT OF FRESH BLOOD W/ CLOTS.
[2018-12-22] MEDS: LACTOBACILLUS RHAMNOSUS GG 1 EACH CAP.SPRINK PO SCH (16:28)
--- NOTE | 2018-12-22 16:35 | NUR ---
ICU/RN- DR. LUJAN HERE TO SEE PT. AWARE OF PT. BLEEDING FROM BLADDER, VIA CBI W/ NS, SBP ON THE 80'S, W/ ORDERS NOTED.
--- NOTE | 2018-12-22 16:40 | NUR ---
ICU/RN-SBP REMAINS ON THE 80S, NS 500ML IV BOLUS GIVEN, MR X2 FOR SBP<95.
[2018-12-22] MEDS: IV NS 0.9% 500 ML IV PRN ×3 (17:01→17:36)
[2018-12-22] MEDS: NOREPINEPHRINE 16 MG in IV D5W 500 ML IV PRN (17:43)
--- NOTE | 2018-12-22 17:45 | NUR ---
ICU/RN- BP-73/41, HR-88/MIN. 1.5 L NS IV BOLUS GIVEN. LEVOPHED DRIP STARTED AT 2 MCG/MIN. PER PROTOCOL. WILL CONTINUE TO MONITOR .
[2018-12-22 18:07] LABS: BASOPHILS % (AUTO) 0.1 % (0.0-2.0); EOSINOPHILS % (AUTO) 1.1 % (0.0-6.0); HEMATOCRIT 21 % (33-45); LYMPHOCYTES # (AUTO) 0.8 /CMM (0.8-4.8); LYMPHOCYTES % (AUTO) 3.5 % (20.0-44.0); MEAN CORPUSCULAR HGB CONC 33 g/dl (31.0-36.0); MEAN CORPUSCULAR VOLUME 94 fL (82-100); MONOCYTES # (AUTO) 1.7 /CMM (0.1-1.30); MONOCYTES % (AUTO) 7.2 % (2.0-12.0); NEUTROPHILS # (AUTO) 20.5 /CMM (1.8-8.9); NEUTROPHILS % (AUTO) 88.1 % (43.0-81.0); PLATELET COUNT (AUTO) 177 /CMM (150-450); RED BLOOD CELL COUNT(AUTO) 2.22 MIL/uL (4.0-5.2); WHITE BLOOD COUNT (AUTO) 23.3 K/uL (4.3-11.0)
--- NOTE | 2018-12-22 18:10 | NUR ---
ICU/RN- ACNP JAIME CALLED, MADE AWARE OF PT. CURRENT STATUS AND CURRENT HH-6.05/25. W/ PHONE ORDERS NOTED. W/ STANDING ORDER TO TRANSFUSE I UNIT PRBC FOR HGB<7.0. HEMATOLOGY CONSULT BY DR. CABRERA TO R/O MALIGNANCY SECONDARY TO GROSS HEMATURIA. WILL NOTIFY MIKEL.
--- NOTE | 2018-12-22 18:24 | NUR ---
ICU/RN- DR. CABRERA HERE TO SEE PT.
[2018-12-22 18:28] LABS: HEMOGLOBIN 6.8 g/dL (11.5-14.8)
--- NOTE | 2018-12-22 18:30 | NUR ---
ICU/RN- CURRENT FC DCD AND INSERTED A 3WAY FC PER PROTOCOL AND CONTINUE CBI W/ NS PER MD ORDER. WILL CONTINUE TO MONITOR PT. FOR ACTIVE BLEEDING AND WILL REFER ACCORDINGLY.
[2018-12-22 18:48] LABS: BAND % (MANUAL) 8 % (0.0-5.0); LYMPHOCYTES % (MANUAL) 6 % (16-48); MONOCYTES % (MANUAL) 4 % (0-11.0); NEUTROPHILS % (MANUAL) 82 (42-76)
[2018-12-22 19:22] LABS: D-DIMER 9.04 mg/L(FEU (0.17-0.50)
[2018-12-22 20:19] LABS: HEMOGLOBIN 7.5 g/dL (11.5-14.8)
[2018-12-22] MEDS: MEROPENEM 1 G in IV NS 0.9% 100 ML IV SCH (20:48)
[2018-12-22] MEDS: DEXTROSE 50%-WATER 50 ML DISP.SYRIN IV PRN (21:23)
[2018-12-23] VITALS (89 sets, daily range): BP systolic 72–153; BP diastolic 35–105
[2018-12-23] MEDS: BLOOD SUGAR DIAGNOSTIC 1 EACH STRIP IN SCH ×6 (01:38→21:31)
[2018-12-23] MEDS: IPRATROPIUM NEB FS 0.5 MG/2.5 ML AMPUL.NEB NEB SCH ×6 (03:21→23:11)
[2018-12-23] MEDS: ALBUTEROL FS 2.5 MG/0.5 ML VIAL.NEB NEB SCH ×6 (03:21→23:11)
[2018-12-23] MEDS ORDERED: NOREPINEPHRINE 4 MG/4 ML AMPUL IV ONE (04:00)
[2018-12-23] MEDS: NOREPINEPHRINE 16 MG in IV D5W 500 ML IV PRN ×2 (04:10→14:18)
[2018-12-23] MEDS: IV D5/ 0.9% NACL 1,000 ML IV PRN ×2 (04:54→18:42)
[2018-12-23] MEDS: VANCOMYCIN 1 GM in IV D5W 250 ML IV SCH ×2 (04:56→05:00)
--- NOTE | 2018-12-23 05:00 | NUR ---
VANCOMYCIN LAB LEVEL IS 27. NON ADMINISTER VANCOMYCIN DOSE FOR 0500
[2018-12-23 05:10] LABS: BASOPHILS # (AUTO) 0.1 /CMM (0.0-0.2); BASOPHILS % (AUTO) 0.2 % (0.0-2.0); EOSINOPHILS % (AUTO) 1.2 % (0.0-6.0); HEMATOCRIT 26 % (33-45); HEMOGLOBIN 8.5 g/dL (11.5-14.8); LYMPHOCYTES # (AUTO) 0.9 /CMM (0.8-4.8); LYMPHOCYTES % (AUTO) 3.2 % (20.0-44.0); MEAN CORPUSCULAR HGB CONC 33 g/dl (31.0-36.0); MEAN CORPUSCULAR VOLUME 93 fL (82-100); MONOCYTES # (AUTO) 1.5 /CMM (0.1-1.30); MONOCYTES % (AUTO) 5.4 % (2.0-12.0); NEUTROPHILS # (AUTO) 24.1 /CMM (1.8-8.9); PLATELET COUNT (AUTO) 179 /CMM (150-450); WHITE BLOOD COUNT (AUTO) 26.8 K/uL (4.3-11.0)
[2018-12-23 05:19] LABS: ALANINE AMINOTRANSFERASE 23 U/L (12-78); ALKALINE PHOSPHATASE 179 U/L (46-116); ASPARTATE AMINOTRANSFERASE 23 U/L (15-37); BILIRUBIN,TOTAL 0.9 mg/dL (0.2-1.0); CALCIUM, SERUM 7.9 mg/dL (8.5-10.1); CARBON DIOXIDE 15 mmol/L (21-32); CHLORIDE 103 mmol/L (98-107); CREATININE 1.4 mg/dL (0.6-1.3); GLUCOSE 187 mg/dL (74-106); MAGNESIUM 1.5 mg/dL (1.8-2.4); PHOSPHORUS 4.8 mg/dL (2.5-4.9); POTASSIUM 3.8 mmol/L (3.5-5.1); SODIUM SERUM 132 mmol/L (136-145); TOTAL PROTEIN, SERUM 5.8 g/dL (6.4-8.2); UREA NITROGEN, BLOOD 32 mg/dL (7-18)
[2018-12-23 05:25] LABS: ALBUMIN 1.4 g/dL (3.4-5.0)
[2018-12-23] MEDS: MEROPENEM 1 G in IV NS 0.9% 100 ML IV SCH ×2 (05:36→18:34)
[2018-12-23 06:11] LABS: D-DIMER 7.74 mg/L(FEU (0.17-0.50)
--- NOTE | 2018-12-23 07:16 | NUR ---
PT REMAINS IN NO ACUTE DISTRESS IN BED. PT DID NOT HAVE ANY SIGNIFICANT CHANGE IN CONDITION DURING SHIFT. ALL NEEDS MET, ALL ORDERS CARRIED OUT. WILL ENDORSE CARE TO AM RN FOR CONTINUITY OF CARE.
[2018-12-23] MEDS: ACETYLCYSTEINE 10% SOLN 400 MG/4 ML VIAL NEB SCH ×3 (07:23→23:11)
[2018-12-23] MEDS: POTASSIUM CHLORIDE 20 MEQ POWDER PACKET GT SCH (08:30)
[2018-12-23] MEDS: DOCUSATE SODIUM LIQ 100 MG/10 ML UDC GT SCH (08:30)
[2018-12-23] MEDS: MULTIVITAMINS,THERAGRAN 1 UDTAB TABLET GT SCH (08:30)
[2018-12-23] MEDS: LACTOBACILLUS RHAMNOSUS GG 1 EACH CAP.SPRINK PO SCH ×2 (08:30→17:06)
[2018-12-23] MEDS: ASCORBIC ACID 500 MG TABLET PO SCH (08:30)
[2018-12-23] MEDS: ACETAMINOPHEN 650 MG/20.3 ML UDC GT SCH (08:30)
[2018-12-23] MEDS: PANTOPRAZOLE 40 MG/PACK PACK GT SCH ×2 (08:31→21:31)
[2018-12-23] MEDS: PROSOURCE / PROSTAT (PYXIS) 30 ML UDC GT SCH (08:31)
[2018-12-23 08:49] LABS: ABG BASE EXCESS -11.9 mmol/L; ABG OXYGEN SATURATION 97.3 % (92.0-98.5); ABG PCO2 21.7 mmHg (35.0-45.0); ABG PH 7.354 (7.350-7.450); ABG PO2 100.2 mmHg (75.0-100.0); AaDO2 73.8 mmHg; COHb 0.5 % (0.5-1.5); MetHb 1.2 % (0.0-1.5); O2Hb 95.6 % (94.0-97.0); SITE, ABG Left Radial; VENT MODE, BG Nasal Cannula
--- NOTE | 2018-12-23 09:39 | NUR ---
CT UROGRAM RECOMMENDED FOR BLADER MASS EVALUATION DISCUSSED WITH DR LE CUELLAR TO ORDER CT UROGRAM DC CT PELVIS.
[2018-12-23] MEDS: HYDROCODONE/APAP 5/325MG 1 EACH TABLET PO PRN ×2 (10:27→14:56)
[2018-12-23] MEDS: Magnesium 1GM/D5W 100ML PREMIX 100 ML IV SCH ×2 (10:28→11:04)
[2018-12-23] MEDS: CITRIC ACID/SODIUM CITRATE (BICITRA)15 ML UDC PO SCH ×4 (10:38→21:31)
--- NOTE | 2018-12-23 11:00 | NUR ---
SPOKE TO DR. MILLER 'S OFFICE RE: PATIENT UROLOGY CONSULT. INFORMATION GIVEN.
[2018-12-23] MEDS: INSULIN REGULAR, HUMAN 100 UNIT/ML 3 ML VIAL SQ PRN (11:03)
[2018-12-23] MEDS ORDERED: VITAL AF 1.2 1,000 ML BOTTLE GT PRN (15:00)
[2018-12-23 16:05] LABS: HEMOGLOBIN 7.7 g/dL (11.5-14.8)
--- NOTE | 2018-12-23 17:00 | NUR ---
PT WEANED OFF LEVO. PER PROTOCOL, RADIOLOGY CONTACTED PT CAN GO TO CT FOR UROGRAM.
[2018-12-23] MEDS ORDERED: IV NS 0.9% 250 ML IV ONE (17:05)
[2018-12-23] MEDS ORDERED: IOHEXOL-300 100 ML VIAL IV ONE (17:05)
[2018-12-23] MEDS ORDERED: CT SWABBABLE VALVE TRANS SET 1 EA INFUS.SET MC ONE (17:05)
--- NOTE | 2018-12-23 17:30 | NUR ---
CR 1.4 METAL CABINET FINISHER ASKING TO OBTAIN THE ORDER FROM ENGINEERING DEPARTMENT CHAIR IF IT IS OK FOR PT TO RECEIVE CONTRAST WITH CR 1.4 DR AMAYA TEXTED FOR ORDER.
--- NOTE | 2018-12-23 18:15 | NUR ---
DR KEE TEXTED BACK "MODERATE RISK" NO ORDER. WILL CALL NEPHRO FIRST AID NURSE TO OBTAIN CLARIFICATION.
--- NOTE | 2018-12-23 20:30 | NUR ---
ICU/SERGEANT OF CORRECTIONS DR. JOSE LUIS Rueda OF NEPHROLOGY WAS CALLED FOR CLARIFICATION OF ORDERS, IN WHICH THE PT IS SUPPOSED TO HAVE CT WITH CONTRAST. HOWEVER PT'S CREATINE WAS ELEVATED AND HE SAID THERE WAS MODERATE RISK. MODERATE RISK MEANS TO GIVE OR NOT GIVE THE CONTRAST. HOWEVER THE DR NEVER CALLED BACK. PASSED THIS INFORMATION TO THE CHARGE NURSE.
--- NOTE | 2018-12-23 20:50 | NUR ---
ICU/CLAIM REP BLOOD SUGAR WAS 88, THERE IS NO COVERAGE FOR THIS WILL CONTINUE TO MONITOR THIS PT'S SUGARS ORDERED BY MD AND HOSPITAL POLICY. PT WAS TURNED AND REPOSITIONED FOR COMFORT AND CARE, WILL CONTINUE TO MONITOR THIS PT AND HER SUGARS.
[2018-12-23 20:58] LABS: HEMOGLOBIN 6.9 g/dL (11.5-14.8)
[2018-12-23] MEDS ORDERED: VANCOMYCIN 0.75 GM in IV D5W 250 ML IV SCH (21:00)
--- NOTE | 2018-12-23 21:00 | NUR ---
ICU/CAREER REPRESENTATIVE PT HAD AN H&H WHICH WAS 6.9, CHARGE NURSE MADE AWARE WHO THEN PLACED THE ORDER IN THE COMPUTER TO GIVE 1 UNIT PRBC. THIS IS A STANDING ORDER FOR LOW H&H IF BELOW 7.0 THAN GIVEN 1 UNIT. PT CURRENTLY HAS A F/C WHICH IS DRAINING BLOOD.
--- NOTE | 2018-12-23 21:30 | NUR ---
ICU/ROTOR BALANCER VANCO LEVEL IS 29, 2100 DOSE OF VANCO IVPB WAS HELD AND THEN CHARGE MADE AWARE THAT IVPB WAS NOT GIVEN.
--- NOTE | 2018-12-23 22:30 | NUR ---
ICU/DEAL ARCHITECT UROLOGY CAME TO SEE PT, SHOWED MD THE CHERY. THEN EXPLAINED THAT HAVEN'T GOTTEN ANY URINE SINCE THE BLADDER IRRIGATION IS AT 100 ML/HR AND THERE IS NOTHING IN THE BAG. THE MD AT BEDSIDE FOR ABOUT 20 MINUTES GETTING BLOODY CLOTS OUT. THEN HE ASKED TO PLACE A LARGE CATH WITH THE IRRIGATION, WHICH WAS DONE AND CARRIED OUT. ALSO THEN ASK TO INCREASE THE IRRIGATION TO 300ML TO MAKE SURE THAT NO CLOTS ARE FORMED.
--- NOTE | 2018-12-23 23:30 | NUR ---
ICU/APARTMENT COMMUNITY ASSISTANT MANAGER BLOOD WAS HUNG UP FOR H/H OF 6.9. PT TO HAVE H/H REDONE POST 1 HR TRANSFUSION.
[2018-12-24] VITALS (64 sets, daily range): BP systolic 28–209; BP diastolic 16–110
[2018-12-24] MEDS: BLOOD SUGAR DIAGNOSTIC 1 EACH STRIP IN SCH ×6 (01:31→21:41)
--- NOTE | 2018-12-24 01:55 | NUR ---
ICU/FEED INSPECTION SUPERVISOR BLOOD SUGAR WAS 77, THERE IS NO COVERAGE FOR THIS WILL CONTINUE TO MONITOR THIS PT'S SUGARS ORDERED BY MD AND HOSPITAL POLICY. PT WAS TURNED AND REPOSITIONED FOR COMFORT AND CARE, WILL CONTINUE TO MONITOR THIS PT AND HER SUGARS.
[2018-12-24] MEDS: ALBUTEROL FS 2.5 MG/0.5 ML VIAL.NEB NEB SCH ×5 (03:46→19:57)
[2018-12-24] MEDS: IPRATROPIUM NEB FS 0.5 MG/2.5 ML AMPUL.NEB NEB SCH ×5 (03:46→19:57)
[2018-12-24 04:09] LABS: EOSINOPHILS % (AUTO) 0.9 % (0.0-6.0); HEMATOCRIT 24 % (33-45); HEMOGLOBIN 7.8 g/dL (11.5-14.8); LYMPHOCYTES # (AUTO) 0.7 /CMM (0.8-4.8); LYMPHOCYTES % (AUTO) 2.6 % (20.0-44.0); MEAN CORPUSCULAR HGB CONC 33 g/dl (31.0-36.0); MEAN CORPUSCULAR VOLUME 90 fL (82-100); MONOCYTES # (AUTO) 1.6 /CMM (0.1-1.30); MONOCYTES % (AUTO) 5.9 % (2.0-12.0); NEUTROPHILS # (AUTO) 23.9 /CMM (1.8-8.9); NEUTROPHILS % (AUTO) 90.6 % (43.0-81.0); PLATELET COUNT (AUTO) 169 /CMM (150-450); RED BLOOD CELL COUNT(AUTO) 2.64 MIL/uL (4.0-5.2); WHITE BLOOD COUNT (AUTO) 26.4 K/uL (4.3-11.0)
[2018-12-24 04:15] LABS: CALCIUM, SERUM 7.8 mg/dL (8.5-10.1); CARBON DIOXIDE 15 mmol/L (21-32); CHLORIDE 108 mmol/L (98-107); CREATININE 1.5 mg/dL (0.6-1.3); GLUCOSE 99 mg/dL (74-106); MAGNESIUM 1.9 mg/dL (1.8-2.4); POTASSIUM 4.3 mmol/L (3.5-5.1); SODIUM SERUM 134 mmol/L (136-145); UREA NITROGEN, BLOOD 36 mg/dL (7-18)
[2018-12-24] MEDS: MEROPENEM 1 G in IV NS 0.9% 100 ML IV SCH ×2 (05:31→18:50)
[2018-12-24] MEDS: ACETYLCYSTEINE 10% SOLN 400 MG/4 ML VIAL NEB SCH ×2 (07:26→15:16)
[2018-12-24 08:07] LABS: CANCER AG, 125 88.8 U/mL (0.0-38.1)
--- NOTE | 2018-12-24 08:17 | NUR ---
INITIAL OPEN DIE INSPECTOR NOTE RCVD PT AWAKE AND ALERT TO SELF, SR ON MONITOR, TOLERATING O2 VIA NASAL CANNULA, PEG CLAMPED, PLACEMENT VERIFIED BY AUSCULTATION/ASPIRATION OF CLEAR GASTRIC CONTENTS. THREE WAY CHERY ON CONTINUOUS BLADDER IRRIGATION WITH BLOODY URINE. PT HAD LARGE EPISODE OF WATERY DIARRHEA, SIDNEY AT BEDSIDE RECOMMENDED RECTAL TUBE. CARLOS A PICC C/D/I/PATENT, NO S/O INFILTRATION/PHLEBITIS OBSERVED, IVF INFUSING ORDERED. WILL CONTINUE TO MONITOR PT FOR SAFETY AND COMFORT, BED IN LOW AND LOCKED POSITION. CALL LIGHT WITHIN REACH, HEAD OF BED ELEVATED.
[2018-12-24] MEDS: ACETAMINOPHEN 650 MG/20.3 ML UDC GT SCH (09:21)
[2018-12-24] MEDS: POTASSIUM CHLORIDE 20 MEQ POWDER PACKET GT SCH (09:21)
[2018-12-24] MEDS: LACTOBACILLUS RHAMNOSUS GG 1 EACH CAP.SPRINK PO SCH ×2 (09:21→17:30)
[2018-12-24] MEDS: ASCORBIC ACID 500 MG TABLET PO SCH (09:21)
[2018-12-24] MEDS: CITRIC ACID/SODIUM CITRATE (BICITRA)15 ML UDC PO SCH ×4 (09:21→21:00)
[2018-12-24] MEDS: PROSOURCE / PROSTAT (PYXIS) 30 ML UDC GT SCH (09:21)
[2018-12-24] MEDS: MULTIVITAMINS,THERAGRAN 1 UDTAB TABLET GT SCH (09:21)
[2018-12-24] MEDS: PANTOPRAZOLE 40 MG/PACK PACK GT SCH ×2 (09:21→21:00)
[2018-12-24] MEDS ORDERED: VITAL AF 1.2 1,000 ML BOTTLE GT PRN (09:43)
[2018-12-24] MEDS: DEXTROSE 50%-WATER 50 ML DISP.SYRIN IV PRN ×5 (10:11→15:51)
--- NOTE | 2018-12-24 10:15 | NUR ---
ACCOUNT DEVELOPMENT SPECIALIST NOTE PT'S CBI INFUSING AT 300 ML/HR WITH DARK BLOODY DRAINAGE, WITH CLOTS, DRAINAGE STOPPED, BLADDER WAS FLUSHED WITH SEVERAL PIECES OF CLOTS COMING OUT, CBI INCREASED TO 600 ML/HR WILL CONTINUE TO MONITOR. JOSIANE MERIDA AWARE AND AGREES WITH INTERVENTION TO MAINTAIN PATENCY OF CATHETER.
[2018-12-24] MEDS ORDERED: IOHEXOL-300 100 ML VIAL IV ONE (10:43)
[2018-12-24] MEDS ORDERED: CT SWABBABLE VALVE TRANS SET 1 EA INFUS.SET MC ONE (10:44)
[2018-12-24] MEDS ORDERED: IV NS 0.9% 250 ML IV ONE (10:44)
[2018-12-24] MEDS: IV D5/ 0.9% NACL 1,000 ML IV PRN (12:45)
--- NOTE | 2018-12-24 13:45 | NUR ---
PATIENT BLOOD SUGAR RE ASSESSED POST D50 I AMP-BS REMAINS 25. SIDNEY EVERETT, ACNP NOTOFIED. GT FEEDING STARTED. ANOTHER D50 1 AMP GIVEN PER PROTOCOL.
[2018-12-24] MEDS: Sodium Chloride 154 MEQ in IV 10% DEXTROSE 1,000 ML IV PRN (15:32)
--- NOTE | 2018-12-24 17:13 | NUR ---
SAP PPM CONSULTANT NOTE PT'S BLOOD GLUCOSE FINALLY WITHIN NORMAL RANGE AT 201 AFTER MULTIPLE EPISODES OF HYPOGLYCEMIA DURING SHIFT. DR. LUJAN RECOMMENDED TO START PT ON D10% WHICH IS CURRENTLY INFUSING, EARLIER TODAY MARVA LITTLE RECOMMENDED TO START PT ON TUBE FEEDING THIS WAS STARTED AND STOPPED LATER DUE TO INCREASED RESIDUAL OF >200 ML TWO HOURS AFTER STARTING, LAST RESIDUAL CHECK 130ML. JOSIANE MERIDA AWARE OF PT'S PLAN OF CARE AND TX DURING SHIFT.
[2018-12-24] MEDS: VANCOMYCIN 0.75 GM in IV D5W 250 ML IV SCH (17:30)
[2018-12-24] MEDS: METOCLOPRAMIDE HCL 10 MG/2 ML VIAL IV SCH (17:30)
--- NOTE | 2018-12-24 19:21 | NUR ---
LIVESTOCK LABORER NOTE PT'S VITAL SIGNS REMAINS STABLE, PT SHOWING NO S/O DISTRESS/PAIN AT THIS TIME, CHERY DRAINING CLEAR, PINK TINGED URINE, IV SITE C/D/I/PATENT, IVF INFUSING ORDERED, G-TUBE CLAMPED, FLEXISEAL IN PLACE. SIDNEY CAME AT END OF SHIFT UPDATED ON PT'S CONDITION AND NEW ORDERS FROM DR. LUJAN CHANGING IVF TO D10%. PT'S CARE ENDORSED TO PATTERNMAKER PLASTER AND PLASTIC RN FOR CONTINUITY OF CARE, BED IN LOW AND LOCKED POSITION. CALL LIGHT WITHIN REACH, HEAD OF BED ELEVATED.
--- NOTE | 2018-12-24 20:05 | NUR ---
ICU/SANDBLASTER STONE PT APPEARED TO HAVE VOMITED BROWNISH LIQUID, NOTIFIED CHARGE WHO GAVE ZOFRAN. WILL MONITOR THIS PT CLOSELY
[2018-12-24 20:25] LABS: HEMOGLOBIN 6.4 g/dL (11.5-14.8)
--- NOTE | 2018-12-24 20:45 | NUR ---
ICU/DIRECTOR METABOLISM ABG DONE WITH BICARB LOW NOTIFIED ON-CALL KEYONA WHO THE ORDERED 2AMP BICARB IN 1 LITER AT 50ML. CHARGE NURSE MADE AWARE OF THIS THEN ORDERS WERE CARRIED OUT. WILL MONITOR THIS PT.
--- NOTE | 2018-12-24 20:50 | NUR ---
ICU/PIT STEWARD PT APPEARED TO BE IN DISTRESS, ABG WAS DONE. RESULTS GIVEN TO KEYONA, ORDERS CARRIED OUT
[2018-12-24 20:51] LABS: ABG BASE EXCESS -15.5 mmol/L; ABG OXYGEN SATURATION 98.1 % (92.0-98.5); ABG PCO2 21.7 mmHg (35.0-45.0); ABG PH 7.274 (7.350-7.450); ABG PO2 141.5 mmHg (75.0-100.0); AaDO2 61.3 mmHg; COHb 0.4 % (0.5-1.5); O2Hb 96.7 % (94.0-97.0); SITE, ABG Right Radial; VENT MODE, BG Nasal Cannula
[2018-12-24] MEDS ORDERED: SODIUM BICARBONATE SYR 50 MEQ/50 ML DISP.SYRIN ONE (21:25)
[2018-12-24] MEDS ORDERED: Sodium Bicarbonate 100 MEQ in IV D5W 1,000 ML IV PRN (21:30)
[2018-12-24] MEDS: NOREPINEPHRINE 16 MG in IV D5W 500 ML IV PRN (23:15)
--- NOTE | 2018-12-24 23:25 | NUR ---
PT ORALLY INTUBATED WITH 7.0 ETT SECURED @ 23 CM @ THE LIP . PT PLACED ON THE VENT WITH THE SETTINGS OF AC 12,500,PEEP 5, FIO2 100% . POSITIVE COLOR CHANGED CO2 DETECTOR , EQUAL BILATERAL CHEST RISE. VENT PLUGGED INTO RED OUTLET, VENT ALARMS ON AND AUDIBLE. AMBU BAG AT BEDSIDE. SUCTIONED COPIOUS AMOUNT OF COFFEE GROUND EMESIS. WILL CONTINUE TO MONITOR THE PT.
--- NOTE | 2018-12-24 23:30 | NUR ---
ICU/LITERACY COACH PT STARTED TO REPLACE CHERY CATH, WHEN PT WAS PLACED IN DOWN POSITION, PT HAD A DIFFICULT TIME BREATHING. NOTIFIED CHARGE NURSE WHO THEN ORDERED MD FROM ER TO EVALUATE PT. DIFFICULT TIME OBTAINING SATURATION, ALONG WITH LOW BP. ER MD INTUBATED FOR AIRWAY PROTECTION. 7.0 AT LIP A/C 12,500, PEEP 5, FIO2 100%. AT THE TIME INTUBATION THERE WAS DARK LIQUID FROM THE PT THAT WAS SUCTIONED OUT. CHEST XRAY WAS DONE TO MAKE SURE PROPPER PLACEMENT. CALL MADE TO FAMILY MEMBERS. DURING INTUBATION HAD TO START LEVO DUE TO CONTINUOUS LOW BP 50'S. LEVO WILL BE TITRATED UP PER PROTOCOL. PER ER MD PLACE O/G TUBE TO LOW SUCTION DUE TO THE BROWN LIQUID. ALSO MD SUPERVISOR FINISHING ROOM KEYONA CALLED ORDERED SOLU-MEDRAL X 1 NOW. CHARGE AWARE AND CARRIED OUT ORDERERS.
[2018-12-24] MEDS ORDERED: PHENYLEPHRINE 10 MG/ML VIAL ONE (23:58)
[2018-12-25] VITALS (113 sets, daily range): BP systolic 30–216; BP diastolic 20–122
[2018-12-25] MEDS ORDERED: PHENYLEPHRINE 80 MG in IV NS 0.9% 250 ML IV PRN ×2
[2018-12-25] MEDS ORDERED: methylPREDNISolone SOD SUCC 125 MG/2ML VIAL IV ONE
[2018-12-25] MEDS: ACETYLCYSTEINE 10% SOLN 400 MG/4 ML VIAL NEB SCH ×4 (00:03→23:28)
[2018-12-25] MEDS: IPRATROPIUM NEB FS 0.5 MG/2.5 ML AMPUL.NEB NEB SCH ×7 (00:03→23:28)
[2018-12-25] MEDS: ALBUTEROL FS 2.5 MG/0.5 ML VIAL.NEB NEB SCH ×7 (00:03→23:28)
[2018-12-25] MEDS: PHENYLEPHRINE 80 MG in IV D5W 250 ML IV PRN (00:19)
--- NOTE | 2018-12-25 00:30 | NUR ---
ICU/PULP TESTER LEVO STATED AND ORDER WAS RECEIVED FOR SERGIO TO KEEP BLOOD PRESSURE ABOVE 90
--- NOTE | 2018-12-25 00:30 | NUR ---
ICU/MEDICAL REVIEW SPECIALIST A SECOND PRESSOR TO SUPPORT PT'S BLOOD PRESSURE WAS STARTED DUE TO FIRST PRESSOR OF LEVO ALMOST MAXED OUT. SECOND PRESSOR OF SERGIO STARTED WILL TITRATED PER HOSPITAL PROTOCOL, BY CHARGE NURSE.
[2018-12-25] MEDS: METOCLOPRAMIDE HCL 10 MG/2 ML VIAL IV SCH ×4 (00:38→18:05)
--- NOTE | 2018-12-25 00:40 | NUR ---
ICU/ENGINE ROOM HELPER ABG DONE AND RESULTS GIVEN TO KEYONA, NO NEW ORDERS RECEIVED AT THIS TIME. WILL CONTINUE TO MONITOR THIS PT.
[2018-12-25] MEDS: BLOOD SUGAR DIAGNOSTIC 1 EACH STRIP IN SCH ×6 (00:47→23:06)
--- NOTE | 2018-12-25 00:50 | NUR ---
ICU/INDUSTRIAL TRAINING SPECIALIST CHEST XRAY POST INTUBATION WA GOOD WITH NO CHANGES TO BE MADE.
--- NOTE | 2018-12-25 01:00 | NUR ---
ICU/CYCLE DIRECTOR DR ROMANO GAVE ORDER FOR LACTIC ACID WHICH WAS 1.6, THEN OK TO PLACE O/G TUBE FOR LOW INTERMITTED SUCTION DUE TO BROWNISH LIQUID FROM MOUTH
[2018-12-25 01:04] LABS: ABG BASE EXCESS -17.6 mmol/L; ABG OXYGEN SATURATION 99.1 % (92.0-98.5); ABG PCO2 21.5 mmHg (35.0-45.0); ABG PH 7.216 (7.350-7.450); ABG PO2 386.1 mmHg (75.0-100.0); COHb 0.1 % (0.5-1.5); MetHb 1.1 % (0.0-1.5); O2Hb 97.9 % (94.0-97.0); PEEP,BG 5 cm H2O; SITE, ABG Right Radial; VT, ABG 500 mL
[2018-12-25] MEDS: NOREPINEPHRINE 16 MG in IV D5W 500 ML IV PRN ×2 (01:08→16:23)
--- NOTE | 2018-12-25 01:10 | NUR ---
ICU/JAVA PROGRAMMING PROFESSOR BLOOD TRANSFUSION STARTED WAS H/H WAS 6.420. MORNING CBC WILL RECHECK H/H
[2018-12-25] MEDS: PROPOFOL 100 ML IV PRN ×4 (01:20→23:02)
--- NOTE | 2018-12-25 01:30 | NUR ---
ICU/RETAIL PERFORMANCE SPECIALIST PT STARTED TO WAKE UP, ORDER RECEIVED FOR SEDATION WHICH WAS CARRIED OUT BY CHARGE NURSE.
--- NOTE | 2018-12-25 04:00 | NUR ---
ICU/POLICE STENOGRAPHER SERGIO IS OFF AT THIS TIME WITH LEVO DECREASED DOWN TO 20MCG. WILL MONITOR THIS PT AND BLOOD PRESSURE.
[2018-12-25] MEDS: MEROPENEM 1 G in IV NS 0.9% 100 ML IV SCH (05:41)
[2018-12-25] MEDS: Sodium Chloride 154 MEQ in IV 10% DEXTROSE 1,000 ML IV PRN (05:49)
[2018-12-25 05:50] LABS: BASOPHILS # (AUTO) 0.1 /CMM (0.0-0.2); BASOPHILS % (AUTO) 0.1 % (0.0-2.0); HEMATOCRIT 30 % (33-45); HEMOGLOBIN 9.7 g/dL (11.5-14.8); LYMPHOCYTES # (AUTO) 0.6 /CMM (0.8-4.8); LYMPHOCYTES % (AUTO) 1.3 % (20.0-44.0); MEAN CORPUSCULAR HGB CONC 33 g/dl (31.0-36.0); MEAN CORPUSCULAR VOLUME 93 fL (82-100); MONOCYTES # (AUTO) 1.2 /CMM (0.1-1.30); MONOCYTES % (AUTO) 2.7 % (2.0-12.0); NEUTROPHILS # (AUTO) 42.6 /CMM (1.8-8.9); NEUTROPHILS % (AUTO) 95.9 % (43.0-81.0); PLATELET COUNT (AUTO) 178 /CMM (150-450); RED BLOOD CELL COUNT(AUTO) 3.21 MIL/uL (4.0-5.2)
[2018-12-25 05:55] LABS: CALCIUM, SERUM 7.8 mg/dL (8.5-10.1); CARBON DIOXIDE 11 mmol/L (21-32); CHLORIDE 109 mmol/L (98-107); CREATININE 1.4 mg/dL (0.6-1.3); GLUCOSE 280 mg/dL (74-106); MAGNESIUM 1.9 mg/dL (1.8-2.4); PHOSPHORUS 6.1 mg/dL (2.5-4.9); POTASSIUM 4.6 mmol/L (3.5-5.1); SODIUM SERUM 138 mmol/L (136-145); UREA NITROGEN, BLOOD 35 mg/dL (7-18)
[2018-12-25 06:21] LABS: WHITE BLOOD COUNT (AUTO) 44.5 K/uL (4.3-11.0)
--- NOTE | 2018-12-25 06:40 | NUR ---
ICU/INFANTRY SENIOR SERGEANT TURNED PT, NOTICED THICK BROWNISH SECRETIONS FROM MOUTH. PT WAS CHANGED.
--- NOTE | 2018-12-25 07:20 | NUR ---
ICU.MEDICAL PHYSIOLOGIST PASS ON TO DAY SHIFT TO HAVE CLARIFICATION OF MEDICATION ON DEC.
--- NOTE | 2018-12-25 07:25 | NUR ---
CORPORATE TREASURER INITIAL NOTES RECEIVED PT IN BED, SEDATED ON DIPRIVAN DRIP AT 35MCG/KG/MIN. PT INTUBATED AND MECHANICALLY ABIGAIL. VENT SETTINGS CHECKED FOR ACCURACY (AC 12, TV 500, FIO2 80% PEEP 5). PT SATING AT 100% AND TOLERATING VENT SETTINGS WELL. PT CURRENTLY SR ON THE TELE MONITOR. RIGHT UPPER ARM PICC LINE AND LEFT HAND PERIPHERAL IV NOTED TO BE C/D/I. PT RECEIVING A ONE TIME INFUSION OF BICARB DRIP THROUGH HER LEFT PERIPHERAL IV AND TOLERATING WELL. NO REDNESS OR SIGNS OF INFILTRATION NOTED. PICC LINE NOTED TO BE C/D/I. PT RECEIVING DIPRIVAN DRIP @ 35MCG/KG/MIN, ALONG WITH LEVO DRIP AT 10MCG, AND NACL WITH ADDED 10% DEXTROSE AT 50ML/HR. PT TOLERATING INFUSION WELL. THREE WAY CATHETER NOTED TO BE CONNECTED TO IRRIGATION. HEMATURIA NOTED. CHERY NOTED TO BE PATENT AND INTACT. FLEXISEAL NOTED. LIQUID STOOL NOTED TA THIS TIME. GTUBE NOTED TO BE PATENT AND INTACT. POSITIVE PLACEMENT VERIFIED VIA AUSCULTATION. OG TUBE NOTED TO CONTINUOUS SUCTION. BROWN CONTENTS NOTED IN COLLECTION CHAMBER FROM PREVIOUS SHIFT. BED IN LOW LOCKED POSITION, SIDE RIAL SUP X2, BILATERAL SOFT WRIST RESTRAINTS NOTED. WEAK PERIPHERAL PULSES AND ADEQUATE CAP REFILL NOTED. CONTACT ISOLATION PRECAUTION OBSERVED. WILL CONTINUE TO MONITOR
--- NOTE | 2018-12-25 08:03 | NUR ---
RT PATIENT REC'D ORALLY INTUBATED ON [facility] VENT WITH ORDERED SETTINGS. ALARMS CHECKED + AUDIBLE. CUFF PRESSURE CHECKED CPR INSTRUCTOR. PATIENT SUCTIONED WITH SMALL AMT OF BROWN RIOS SECRETIONS. PATIENT IN CRITICAL CONDITION. AMBU BAG AT HOB Addendum: 12/25/18 at 1624 by LEXI THORPE RT Amended: Links added.
[2018-12-25] MEDS ORDERED: SUCCINYLCHOLINE CHLORIDE 20 MG/ML VIAL IV ONE (08:44)
[2018-12-25] MEDS ORDERED: ETOMIDATE 2 MG/ML VIAL IV ONE (08:44)
[2018-12-25 08:54] LABS: BAND % (MANUAL) 2 % (0.0-5.0); EOSINOPHILS % (MANUAL) 1 % (0-4); LYMPHOCYTES % (MANUAL) 2 % (16-48); MONOCYTES % (MANUAL) 1 % (0-11.0); NEUTROPHILS % (MANUAL) 94 (42-76)
[2018-12-25] MEDS: PANTOPRAZOLE 40 MG/PACK PACK GT SCH ×2 (09:00→21:00)
[2018-12-25] MEDS: PROSOURCE / PROSTAT (PYXIS) 30 ML UDC GT SCH (09:00)
[2018-12-25] MEDS: LACTOBACILLUS RHAMNOSUS GG 1 EACH CAP.SPRINK PO SCH ×2 (09:00→16:00)
[2018-12-25] MEDS: POTASSIUM CHLORIDE 20 MEQ POWDER PACKET GT SCH (09:00)
[2018-12-25] MEDS: CITRIC ACID/SODIUM CITRATE (BICITRA)15 ML UDC PO SCH ×4 (09:00→21:00)
[2018-12-25] MEDS: MULTIVITAMINS,THERAGRAN 1 UDTAB TABLET GT SCH (09:00)
[2018-12-25] MEDS: ASCORBIC ACID 500 MG TABLET PO SCH (09:00)
[2018-12-25] MEDS: ACETAMINOPHEN 650 MG/20.3 ML UDC GT SCH (09:00)
[2018-12-25] MEDS: ACETYLCYSTEINE 20% SOLN 800 MG/4 ML VIAL PO SCH ×2 (09:00→21:00)
[2018-12-25 09:04] LABS: ABG BASE EXCESS -16.4 mmol/L; ABG OXYGEN SATURATION 98.8 % (92.0-98.5); ABG PCO2 21.6 mmHg (35.0-45.0); ABG PH 7.246 (7.350-7.450); ABG PO2 277.9 mmHg (75.0-100.0); AaDO2 126.1 mmHg; COHb 0.1 % (0.5-1.5); MetHb 1.1 % (0.0-1.5); O2Hb 97.6 % (94.0-97.0); SITE, ABG Left Radial
--- NOTE | 2018-12-25 10:15 | NUR ---
NETWORK CONSULTANT NOTES: ACCOUNT ENGINEER ROUNDING (SIDNEY) SIDNEY P AT BEDSIDE AND UPDATED ON PT'S RECENT LABS, VITALS, AND CHANGES IN CONDITION OVER NIGHT. ORDERS OBTAINED BY MD TO DECREASE PT'S IV DEXTROSE INFUSION FROM 1OOML TO 50ML/HR, ALONG WITH ORDERS TO OBTAIN AN OB STOOL, CDIFF, AND STOOL CXC SAMPLES. NO STOOL NOTED IN FLEXI SEAL AT THIS TIME. WILL COLLECT ONCE AVAILABLE. WILL CARRY OUT NO ORDERS AND CONTINUE TO CLOSELY MONITOR
--- NOTE | 2018-12-25 13:06 | NUR ---
FLOORMAN NOTES: CRITICAL MICROBIOLOGY REPORT CALL RECEIVED FROM [facility]. PT'S RESPIRATORY CULTURE IS POSITIVE FOR CRE. SIDNEY PROSTHETICS TECHNICIAN MADE AWARE. NO NEW ORDERS AT THIS TIME.
[2018-12-25 15:01] LABS: OCCULT BLOOD STOOL NEGATIVE (NEGATIVE)
[2018-12-25] MEDS: VANCOMYCIN 0.75 GM in IV D5W 250 ML IV SCH (16:21)
[2018-12-25] MEDS ORDERED: FEE PK DOSING 1 MIN EA MC ONE (17:58)
[2018-12-25] MEDS ORDERED: DOSING PER PHARMACY-AMIKACI IV XX PRN (18:00)
--- NOTE | 2018-12-25 19:43 | NUR ---
CAN CAPPER CLOSING NOTES PT REMAINS STABLE. ALL NEEDS ANTICIPATED FOR AND MET DURING SHIFT. ALL DUE MEDS GIVEN PT'S CONDITION PERMITS. PT REMAINS INTUBATED NAD TOLERATING VENT SETTING WELL. CHERY CATHETER REMAINS PATENT AND INTACT AND IRRIGATING. HEMATURIA STILL NOTED IN CHERY AT THIS TIME. PICC LINE REMAINS C/D/I. PT TOLERATING LEVO AT 10 MCG ALONG WITH NACL AND 10% DEXTROSE INFUSION AT 50NL/HR. PT WAS REPOSITIONED AND TURNED PER HOSPITAL PROTOCOL. PRN AND WOUND CARE RENDERED ORDERED. SAFETY MEASURES REMAIN IN PLACE. WILL ENDORSE TO NIGHTSHIFT RN FOR JACK
--- NOTE | 2018-12-25 19:45 | NUR ---
ICU/AS400 PROGRAMMER RECEIVED REPORT FROM DAY NURSE. SEE FLOWSHEET FOR ASSESSMENT AND ANY SKIN ISSUES WHICH ARE ADDRESSED WITH THE INTERVENTIONS WELL. PT WAS TURNED AND REPOSITIONED FOR COMFORT AND CARE. WILL CONTINUE TO MONITOR THIS PT. NO ACUTE DISTRESS SEEN AT THIS TIME. PT REMAINS ON LEVO FOR BP SUPPORT AND DEPRO FOR SEDATION. CHERY WITH BLADDER IRRIGATION, SOME BLOODY SEDIMENTS.
--- NOTE | 2018-12-25 20:18 | NUR ---
RECEIVED PT INTUBATED ON VENT. 7.0 ETT SECURED AT 23CM AT THE LIP. TOLERATING VENT SETTINGS. SX'D FOR SML AMT OF TINGED SECRETIONS. VENT ALARMS SET AND AUDIBLE. AMBU BAG AT BEDSIDE. VENT PLUGGED INTO RED OUTLET. WILL CONTINUE TO MONITOR. Addendum: 12/25/18 at 2020 by NAHID LANDON RT Amended: Links added.
[2018-12-25] MEDS: AMIKACIN 350 MG in IV D5W 100 ML IV SCH (20:26)
[2018-12-25] MEDS: METRONIDAZOLE 500MG/ NS 100ML 500 MG in PREMIX 1 EA IV SCH (20:26)
--- NOTE | 2018-12-25 21:30 | NUR ---
ICU/SITE ENGINEER SON CALLED GAVE UPDATE ON HIS MOTHERS STATUS.
--- NOTE | 2018-12-25 22:00 | NUR ---
ICU/PLC PROGRAMMER PT'S BLOOD SUGAR IS 112, THERE IS NO COVERAGE FOR THIS. WILL CONTINUE TO MONITOR THIS PT'S SUGARS ORDERED BY MD AND HOSPITAL POLICY. PT WAS TURNED AND REPOSITIONED FOR COMFORT AND CARE.
[2018-12-26] VITALS (103 sets, daily range): BP systolic 79–132; BP diastolic 26–74
[2018-12-26] MEDS: METOCLOPRAMIDE HCL 10 MG/2 ML VIAL IV SCH ×5 (00:28→23:44)
[2018-12-26] MEDS: BLOOD SUGAR DIAGNOSTIC 1 EACH STRIP IN SCH ×6 (00:41→21:30)
--- NOTE | 2018-12-26 01:25 | NUR ---
ICU/MANAGER ANIMAL PT'S BLOOD SUGAR IS 77, THERE IS NO COVERAGE FOR THIS. WILL CONTINUE TO MONITOR THIS PT'S SUGARS ORDERED BY MD AND HOSPITAL POLICY. PT WAS TURNED AND REPOSITIONED FOR COMFORT AND CARE.
--- NOTE | 2018-12-26 03:10 | NUR ---
ICU/COOKY MACHINE OPERATOR PT GIVEN AM CARE, ALONG WITH ORAL CARE. PT TOLERATED THIS WELL REMAINS ON CURRENT VENT SETTINGS WITH SATURATION AT 99-100%. PT WAS TURNED AND REPOSITIONED FOR COMFORT AND CARE. WILL CONTINUE TO MONITOR THIS PT.
[2018-12-26] MEDS: IPRATROPIUM NEB FS 0.5 MG/2.5 ML AMPUL.NEB NEB SCH ×6 (03:12→23:09)
[2018-12-26] MEDS: ALBUTEROL FS 2.5 MG/0.5 ML VIAL.NEB NEB SCH ×6 (03:13→23:09)
[2018-12-26] MEDS: METRONIDAZOLE 500MG/ NS 100ML 500 MG in PREMIX 1 EA IV SCH ×3 (03:23→20:27)
[2018-12-26] MEDS: Sodium Chloride 154 MEQ in IV 10% DEXTROSE 1,000 ML IV PRN (04:40)
[2018-12-26 04:53] LABS: BASOPHILS % (AUTO) 0.1 % (0.0-2.0); HEMATOCRIT 25 % (33-45); HEMOGLOBIN 7.9 g/dL (11.5-14.8); LYMPHOCYTES # (AUTO) 0.8 /CMM (0.8-4.8); LYMPHOCYTES % (AUTO) 1.5 % (20.0-44.0); MEAN CORPUSCULAR HGB CONC 32 g/dl (31.0-36.0); MEAN CORPUSCULAR VOLUME 90 fL (82-100); MONOCYTES # (AUTO) 2.3 /CMM (0.1-1.30); MONOCYTES % (AUTO) 4.4 % (2.0-12.0); NEUTROPHILS # (AUTO) 49.1 /CMM (1.8-8.9); PLATELET COUNT (AUTO) 217 /CMM (150-450); RED BLOOD CELL COUNT(AUTO) 2.72 MIL/uL (4.0-5.2)
[2018-12-26] MEDS: PROPOFOL 100 ML IV PRN ×3 (05:01→19:29)
[2018-12-26 05:03] LABS: CALCIUM, SERUM 7.9 mg/dL (8.5-10.1); CARBON DIOXIDE 12 mmol/L (21-32); CHLORIDE 110 mmol/L (98-107); CREATININE 1.3 mg/dL (0.6-1.3); GLUCOSE 154 mg/dL (74-106); POTASSIUM 4.4 mmol/L (3.5-5.1); SODIUM SERUM 137 mmol/L (136-145); UREA NITROGEN, BLOOD 37 mg/dL (7-18)
[2018-12-26 05:15] LABS: WHITE BLOOD COUNT (AUTO) 52.3 K/uL (4.3-11.0)
[2018-12-26 05:57] LABS: LYMPHOCYTES % (MANUAL) 1 % (16-48); MONOCYTES % (MANUAL) 5 % (0-11.0); NEUTROPHILS % (MANUAL) 94 (42-76)
--- NOTE | 2018-12-26 06:05 | NUR ---
ICU/PRIVATE TUTOR PT'S BLOOD SUGAR IS 73, THERE IS NO COVERAGE FOR THIS. WILL CONTINUE TO MONITOR THIS PT'S SUGARS ORDERED BY MD AND HOSPITAL POLICY. PT WAS TURNED AND REPOSITIONED FOR COMFORT AND CARE.
--- NOTE | 2018-12-26 07:05 | NUR ---
COIL MACHINE OPERATOR INITIAL NOTES RECEIVED PT IN BED, SEDATED ON DIPRIVAN DRIP AT 30MCG/KG/MIN. PT INTUBATED AND MECHANICALLY VENT. VENT SETTINGS CHECKED FOR ACCURACY (AC 12, TV 500, FIO2 40% PEEP 5). PT SATING AT 100% AND TOLERATING VENT SETTINGS WELL. PT CURRENTLY SR ON THE TELE MONITOR. RIGHT UPPER ARM PICC LINE AND LEFT HAND PERIPHERAL IV NOTED TO BE C/D/I. NO REDNESS OR SIGNS OF INFILTRATION NOTED. PICC LINE NOTED TO BE C/D/I. PT RECEIVING LEVO DRIP AT 10MCG, AND NACL WITH ADDED 10% DEXTROSE AT 50ML/HR. PT TOLERATING INFUSION WELL. THREE WAY CATHETER NOTED TO BE CONNECTED TO IRRIGATION. HEMATURIA NOTED. CHERY NOTED TO BE PATENT AND INTACT. FLEXISEAL NOTED. ABOUT 20CC OF LIQUID STOOL NOTED IN COLLECTION CHAMBER THIS TIME. GTUBE NOTED TO BE PATENT AND INTACT. POSITIVE PLACEMENT VERIFIED VIA AUSCULTATION. OG TUBE NOTED TO CONTINUOUS SUCTION. PLACEMENT VERIFIED VIA AUSCULTATION. BED IN LOW LOCKED POSITION, SIDE RIAL SUP X2, BILATERAL SOFT WRIST RESTRAINTS NOTED. WEAK PERIPHERAL PULSES AND ADEQUATE CAP REFILL NOTED. CONTACT ISOLATION PRECAUTION OBSERVED. WILL CONTINUE TO MONITOR
[2018-12-26] MEDS: ACETYLCYSTEINE 10% SOLN 400 MG/4 ML VIAL NEB SCH ×3 (07:43→23:09)
--- NOTE | 2018-12-26 07:44 | NUR ---
RT Pt received orally intubated with a 7.0 ETT secured at 23cm at the lip line. Pt is currently sedated at this time. Vent alarms are set and audible with BVM by bedside. CLINICAL SECRETARY cuff pressure noted. Vent is plugged into red outlet. Sx'd brown thin secretions. No respiratory distress noted at this time. Addendum: 12/26/18 at 0815 by MERCEDES OLSON RT Amended: Links added.
[2018-12-26] MEDS: ASCORBIC ACID 500 MG TABLET PO SCH (09:00)
[2018-12-26] MEDS: POTASSIUM CHLORIDE 20 MEQ POWDER PACKET GT SCH (09:00)
[2018-12-26] MEDS: PROSOURCE / PROSTAT (PYXIS) 30 ML UDC GT SCH (09:00)
[2018-12-26] MEDS: MULTIVITAMINS,THERAGRAN 1 UDTAB TABLET GT SCH (09:00)
[2018-12-26] MEDS: PANTOPRAZOLE 40 MG/PACK PACK GT SCH ×2 (09:00→20:42)
[2018-12-26] MEDS: CITRIC ACID/SODIUM CITRATE (BICITRA)15 ML UDC PO SCH ×4 (09:00→20:42)
[2018-12-26] MEDS: LACTOBACILLUS RHAMNOSUS GG 1 EACH CAP.SPRINK PO SCH ×2 (09:00→16:19)
[2018-12-26] MEDS: ACETAMINOPHEN 650 MG/20.3 ML UDC GT SCH (09:00)
[2018-12-26] MEDS: DEXTROSE 50%-WATER 50 ML DISP.SYRIN IV PRN (10:17)
--- NOTE | 2018-12-26 10:19 | NUR ---
DRYING TUNNEL OPERATOR NOTES: BS MONITORING (CRITICAL) PT'S 0930 BLOOD SUGAR WAS 27. REPEAT DONE PER PROTOCOL AND RESULTED TO 60. GAMING FLOOR SUPERVISOR ON UNIT MADE AWARE. STAT GLUCOSE LAB DRAW ORDERED AND TAKEN. PT GIVEN 50% DEXTROSE VIA IV AFTER DRAW. BLOOD SUGAR TAKEN 5MIN AFTER ADMINISTRATION AND NOW 98.
[2018-12-26 12:09] LABS: ABG BASE EXCESS -15.5 mmol/L; ABG OXYGEN SATURATION 97.2 % (92.0-98.5); ABG PCO2 25.1 mmHg (35.0-45.0); ABG PH 7.238 (7.350-7.450); ABG PO2 105.3 mmHg (75.0-100.0); MetHb 1.1 % (0.0-1.5); O2Hb 95.2 % (94.0-97.0); PEEP,BG 5 cm H2O; SITE, ABG Left Radial; VT, ABG 500 mL
--- NOTE | 2018-12-26 12:20 | NUR ---
SUPERVISOR ASBESTOS TEXTILE NOTES (ABG RESULTS) DR PAUL AT BEDSIDE AND MADE AWARE OD PT'S CURRENT ABG RESULTS. A ONE TIME VERBAL ORDER OF 2AMPS SODIUM BICARB VIA IV OBTAINED. WILL CARRY OUT ORDER
[2018-12-26] MEDS ORDERED: Sodium Bicarbonate 100 MEQ in IV D5W 1,000 ML IV ONE (13:00)
[2018-12-26] MEDS: NOREPINEPHRINE 16 MG in IV D5W 500 ML IV PRN (16:50)
--- NOTE | 2018-12-26 19:09 | NUR ---
RETAIL MANAGEMENT TRAINEE CLOSING NOTES PT REMAINS STABLE. ALL NEEDS ANTICIPATED FOR AND MET DURING SHIFT. ALL DUE MEDS GIVEN PT'S CONDITION PERMITS. PT REMAINS INTUBATED AND TOLERATING VENT SETTINGS WELL. CHERY CATHETER REMAINS PATENT AND INTACT AND IRRIGATING. HEMATURIA STILL NOTED IN CHERY AT THIS TIME. PICC LINE REMAINS C/D/I. PT TOLERATING LEVO AT 10 MCG ALONG WITH NACL AND 10% DEXTROSE INFUSION AT 50NL/HR. PT TOLERATING BICARB DRIP WELL. GTUBE REMAINS PATENT AND INTACT. PT WAS REPOSITIONED AND TURNED PER HOSPITAL PROTOCOL. PRN AND WOUND CARE RENDERED ORDERED. SAFETY MEASURES REMAIN IN PLACE. WILL ENDORSE TO NIGHTSHIFT RN FOR JACK
[2018-12-26 19:15] LABS: D-DIMER 22.6 mg/L(FEU (0.17-0.50)
--- NOTE | 2018-12-26 19:30 | NUR ---
CHIEF CONTROLLER CENTER NOTE RECEIVED PT INTUBATED AND SEDATED. ON MECH VENT WITH SETTINGS WELL TOLERATED AND SATURATING WELL. ON ASPIRATION PRECAUTIONS AND HOB ELEVATED. ISOLATION PRECAUTIONS MAINTAINED. TELE-SR 80. CARLOS A PICC WITH LEVO, DIP AND FLUIDS INFUSING. GT CLAMPED. ORAL GT CONNECTED TO LOW INTERMITTENT SUCTION. CHERY CATHETER WITH CONTINUOUS BLADDER IRRIGATION. RECTAL TUBE IN PLACE AND DRAINING BY GRAVITY. WILL CONTINUE TO MONITOR.
--- NOTE | 2018-12-26 20:04 | NUR ---
RECEIVED PT INTUBATED ON VENT. 7.0 ETT SECURED AT 23CM AT THE LIP. TOLERATING VENT SETTINGS. SX'D FOR SML AMT OF TINGED SECRETIONS. VENT ALARMS SET AND AUDIBLE. AMBU BAG AT BEDSIDE. VENT PLUGGED INTO RED OUTLET. WILL CONTINUE TO MONITOR. Addendum: 12/26/18 at 2004 by NAHID LANDON RT Amended: Links added.
[2018-12-26] MEDS: AMIKACIN 350 MG in IV D5W 100 ML IV SCH (20:27)
--- NOTE | 2018-12-26 22:20 | NUR ---
CURRENCY COUNTER NOTE BLOOD GLUCOSE CHECKED WITH VERY LOW RESULTS. 41, THEN 10, THEN 23. ORDERED STAT LAB DRAW. BLOOD GLUCOSE CAME BACK AT 141. NO S/SX OF HYPOGLYCEMIA NOTED. WILL CONTINUE TO MONITOR.
[2018-12-27] VITALS (109 sets, daily range): BP systolic 44–141; BP diastolic 30–85
[2018-12-27] MEDS: BLOOD SUGAR DIAGNOSTIC 1 EACH STRIP IN SCH ×6 (01:10→21:36)
--- NOTE | 2018-12-27 02:00 | NUR ---
TRAINING AND DEVELOPMENT MANAGER NOTE NOTED URINE IN CHERY CATHETER PINK TINGED WITH SOME SEDIMENT. WILL MONITOR.
[2018-12-27] MEDS: IPRATROPIUM NEB FS 0.5 MG/2.5 ML AMPUL.NEB NEB SCH ×6 (03:22→23:13)
[2018-12-27] MEDS: ALBUTEROL FS 2.5 MG/0.5 ML VIAL.NEB NEB SCH ×6 (03:22→23:13)
[2018-12-27] MEDS: METRONIDAZOLE 500MG/ NS 100ML 500 MG in PREMIX 1 EA IV SCH ×3 (03:55→20:28)
[2018-12-27] MEDS: Sodium Chloride 154 MEQ in IV 10% DEXTROSE 1,000 ML IV PRN (03:56)
[2018-12-27] MEDS: PROPOFOL 100 ML IV PRN ×3 (04:56→14:42)
[2018-12-27 05:01] LABS: BASOPHILS % (AUTO) 0.1 % (0.0-2.0); EOSINOPHILS % (AUTO) 0.1 % (0.0-6.0); HEMATOCRIT 23 % (33-45); HEMOGLOBIN 7.3 g/dL (11.5-14.8); LYMPHOCYTES # (AUTO) 0.6 /CMM (0.8-4.8); LYMPHOCYTES % (AUTO) 1.5 % (20.0-44.0); MEAN CORPUSCULAR HGB CONC 32 g/dl (31.0-36.0); MEAN CORPUSCULAR VOLUME 91 fL (82-100); MONOCYTES # (AUTO) 1.5 /CMM (0.1-1.30); MONOCYTES % (AUTO) 3.6 % (2.0-12.0); NEUTROPHILS # (AUTO) 40.2 /CMM (1.8-8.9); NEUTROPHILS % (AUTO) 94.7 % (43.0-81.0); PLATELET COUNT (AUTO) 254 /CMM (150-450); RED BLOOD CELL COUNT(AUTO) 2.52 MIL/uL (4.0-5.2)
[2018-12-27 05:16] LABS: CALCIUM, SERUM 7.6 mg/dL (8.5-10.1); CARBON DIOXIDE 14 mmol/L (21-32); CHLORIDE 109 mmol/L (98-107); CREATININE 1.1 mg/dL (0.6-1.3); GLUCOSE 114 mg/dL (74-106); POTASSIUM 3.9 mmol/L (3.5-5.1); SODIUM SERUM 138 mmol/L (136-145); UREA NITROGEN, BLOOD 34 mg/dL (7-18)
[2018-12-27] MEDS: METOCLOPRAMIDE HCL 10 MG/2 ML VIAL IV SCH ×3 (05:21→17:21)
[2018-12-27 05:45] LABS: WHITE BLOOD COUNT (AUTO) 42.5 K/uL (4.3-11.0)
[2018-12-27 06:08] LABS: BAND % (MANUAL) 8 % (0.0-5.0); LYMPHOCYTES % (MANUAL) 3 % (16-48); MONOCYTES % (MANUAL) 4 % (0-11.0); NEUTROPHILS % (MANUAL) 85 (42-76)
--- NOTE | 2018-12-27 07:15 | NUR ---
RN INITIAL NOTES RECEIVED PT INTUBATED, ON VENT. NO RESPIRATORY DISTRESS NOTED. NO SOB NOTED. NO SIGNS OF PAIN NOTED. PT SEDATED, ON DIPRIVAN AT 25MCG/KG/MIN. WILL TITRATE ACCORDINGLY. OG IN PLACE, CONNECTED TO LOW INTERMITTENT SUCTION, GREENISH CONTENT NOTED. PICC LINE IN PLACE. PT ON LEVO AT 16MCG/MIN, D10 SODIUM CHLORIDE AT 50ML/HR AND SODIUM BICARB AT 50ML/HR. GT CLAMPED. FC IN PLACE CONNECTED TO CBI. PINKISH URINE NOTED WITH MINIMAL CLOTS. FLEXISEAL IN PLACE. BLE ELEVATED. PT LOOKS COMOFORTABLE. WILL CLOSELY MONITOR.
--- NOTE | 2018-12-27 07:27 | NUR ---
MAGNETO SPECIALIST NOTE NO ACUTE DISTRESS NOTED ON [facility] VENT. INTUBATED AND SEDATED. ALL NEEDS ATTENDED TO PROMPTLY. KEPT CLEAN AND DRY. SUCTIONED NEEDED. ISOLATION PRECAUTIONS OBSERVED. IV FLUIDS INFUSING. CHERY CATHETER DRAINING PINK TINGED WITH SLIGHT YELLOW URINE. WILL ENDORSE TO NEXT SHIFT FOR CONTINUITY OF CARE.
[2018-12-27] MEDS: ACETYLCYSTEINE 10% SOLN 400 MG/4 ML VIAL NEB SCH ×3 (07:55→23:13)
[2018-12-27] MEDS: CITRIC ACID/SODIUM CITRATE (BICITRA)15 ML UDC PO SCH ×5 (09:00→20:28)
[2018-12-27] MEDS: ASCORBIC ACID 500 MG TABLET PO SCH ×2 (09:00→09:09)
[2018-12-27] MEDS: ACETAMINOPHEN 650 MG/20.3 ML UDC GT SCH ×2 (09:00→09:09)
[2018-12-27] MEDS: PROSOURCE / PROSTAT (PYXIS) 30 ML UDC GT SCH ×2 (09:00→09:10)
[2018-12-27] MEDS: LACTOBACILLUS RHAMNOSUS GG 1 EACH CAP.SPRINK PO SCH ×3 (09:00→16:14)
[2018-12-27] MEDS: POTASSIUM CHLORIDE 20 MEQ POWDER PACKET GT SCH ×2 (09:00→09:09)
[2018-12-27] MEDS: MULTIVITAMINS,THERAGRAN 1 UDTAB TABLET GT SCH ×2 (09:00→09:09)
[2018-12-27] MEDS: PANTOPRAZOLE 40 MG/PACK PACK GT SCH ×3 (09:00→20:28)
[2018-12-27 09:05] LABS: ABG BASE EXCESS -14.5 mmol/L; ABG PH 7.296 (7.350-7.450); ABG PO2 121.7 mmHg (75.0-100.0); AaDO2 66.4 mmHg; COHb 0.8 % (0.5-1.5); O2Hb 96.2 % (94.0-97.0); SITE, ABG Left Radial
--- NOTE | 2018-12-27 10:35 | NUR ---
SW was informed by MARVA Mane regarding scheduling a family meeting to discuss plan of care. SW left a voicemail message for pt's grand daughter Lupe Zamarripa regarding scheduling a meeting and requested a call back.
[2018-12-27] MEDS: Sodium Acetate 150 MEQ in IV D5W 1,000 ML IV PRN ×2 (10:38→21:50)
[2018-12-27] MEDS: NOREPINEPHRINE 16 MG in IV D5W 500 ML IV PRN (10:39)
--- NOTE | 2018-12-27 10:45 | NUR ---
RN NOTES 0900 SEEN AND EXAMINED BY DR LUJAN. AWARE OF CURRENT LAB VALUES, ABG AND IMAGING STUDIES. ORDERED SODIUM ACETATE 3AMPS AT 100ML/HR. WILL CONTINUE CARE FULL VENT CARE AND IVS ORDERED. 1045 SEEN AND EXAMINED BY SIDNEY EVERETT NP. AWARE OF LAB VALUES:WBC 42.5, TRENDING DOWN. HGB 7.3, HCT 23. PLATELET 254, BUN 34, CREA 1.1. NOTED GREENISH CONTENT FROM OG TUBE. ORDERED ULTRASOUND ABDOMEN SINCE PT UNSTABLE TO DO CT SCAN. SYNTHETIC RESIN OPERATOR AWARE OF ON LEVOPHED AND DIPRIVAN, TITRATED ACCORDINGLY. SYNTHETIC RESIN OPERATOR SATTED THAT WILL COORDIM CASE MANAGEMENT AND DIRECTOR ORACLE DATABASE WILL CLOSELY MONITOR. Addendum: 12/27/18 at 1153 by OLIVE CORREA RN * SYNTHETIC RESIN OPERATOR STATED THAT WILL COORDINATE WITH CASE MANAGEMENT AND DIRECTOR ORACLE DATABASE FOR POSSIBLE FAMILY CONFERENCE ARRANGEMENT. WILL CLOSELY MONITOR PT
--- NOTE | 2018-12-27 12:47 | NUR ---
HOLLIE contacted pt's grand daughter Lupe Zamarripa regarding the urgency of coming to the hospital today to meet with MARVA Mane. Lupe informed SW she will be at [facility] in 45 minutes. HOLLIE updated ICU CRN Titi and MARVA Mane.
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
--- NOTE | 2018-12-27 16:30 | NUR ---
RN NOTES CALLED SIDNEY EVERETT NP REGARDING US ABDOMEN AND XRAY ABDOMEN RESULT READ MILD ASCITES CONSISTENT WITH CIRRHOSIS AND SMALL PLEURAL EFFUSION. DILATED SMALL BOWEL LOOPS REPRESENT ILEUS OR SMALL BOWEL OBSTRUCTION. ORDERED GI CONSULT UNDER DR SALEH. CALLED DR SALEH, LEFT A MESSAGE. WILL KEEP PT NPO. OG TUBE CONNECTED TO INTERMITTENT SUCTION AND GT CLAMPED. WILL CONTINUE TO MONITOR.
[2018-12-27] MEDS: DEXTROSE 50%-WATER 50 ML DISP.SYRIN IV PRN (17:07)
--- NOTE | 2018-12-27 18:44 | NUR ---
RN CLOSING NOTES PT REMAINS INTUBATED, ON VENT. NO RESPIRATORY DISTRESS NOTES. NO SOB NOTED. NO SIGNS OF PAIN NOTED. PT REMAINS ON LEVOPHED AND DIPRIVAN, TITRATED ACCORDINGLY. IVF INFUSING. KEPT ON NPO. TX PROVIDED ORDERED. KEPT CLEAN AND DRY. REPOSITIONED Q2. BLE ELEVATED. KEPT COMFORTABLE. WILL ENDORSE FOR CONTINUITY OF CARE
--- NOTE | 2018-12-27 20:18 | NUR ---
RECEIVED PT INTUBATED ON VENT. 7.0 ETT SECURED AT 23CM AT THE LIP. TOLERATING VENT SETTINGS. SX'D FOR MOD AMT OF GREEN/BLACK SECRETIONS. VENT ALARMS SET AND AUDIBLE. AMBU BAG AT BEDSIDE. VENT PLUGGED INTO RED OUTLET. WILL CONTINUE TO MONITOR. Addendum: 12/27/18 at 2019 by NAHID LANDON RT Amended: Links added.
[2018-12-27] MEDS: AMIKACIN 350 MG in IV D5W 100 ML IV SCH (20:28)
[2018-12-28] VITALS (109 sets, daily range): BP systolic 67–136; BP diastolic 21–83
[2018-12-28] MEDS: METOCLOPRAMIDE HCL 10 MG/2 ML VIAL IV SCH ×4 (00:03→17:05)
[2018-12-28] MEDS: BLOOD SUGAR DIAGNOSTIC 1 EACH STRIP IN SCH ×6 (02:14→21:16)
[2018-12-28] MEDS: PROPOFOL 100 ML IV PRN ×3 (02:15→17:04)
[2018-12-28] MEDS: Sodium Chloride 154 MEQ in IV 10% DEXTROSE 1,000 ML IV PRN ×2 (02:15→16:19)
[2018-12-28] MEDS: ALBUTEROL FS 2.5 MG/0.5 ML VIAL.NEB NEB SCH ×6 (03:31→23:27)
[2018-12-28] MEDS: IPRATROPIUM NEB FS 0.5 MG/2.5 ML AMPUL.NEB NEB SCH ×6 (03:31→23:27)
[2018-12-28] MEDS: METRONIDAZOLE 500MG/ NS 100ML 500 MG in PREMIX 1 EA IV SCH ×3 (03:34→20:52)
[2018-12-28 05:06] LABS: CALCIUM, SERUM 7.3 mg/dL (8.5-10.1); CARBON DIOXIDE 17 mmol/L (21-32); CHLORIDE 110 mmol/L (98-107); GLUCOSE 148 mg/dL (74-106); POTASSIUM 3.1 mmol/L (3.5-5.1); SODIUM SERUM 140 mmol/L (136-145); UREA NITROGEN, BLOOD 29 mg/dL (7-18)
[2018-12-28] MEDS: NOREPINEPHRINE 16 MG in IV D5W 500 ML IV PRN ×2 (06:26→16:18)
--- NOTE | 2018-12-28 07:10 | NUR ---
RN INITIAL NOTES RECEIVED PT INTUBATED, ON VENT. NO RESPIRATORY DISTRESS NOTED. NO SOB NOTED. NO SIGNS OF PAIN NOTED. PT SEDATED, ON DIPRIVAN AT 25MCG/KG/MIN. WILL TITRATE ACCORDINGLY. OG IN PLACE, CONNECTED TO LOW INTERMITTENT SUCTION. PICC LINE IN PLACE. PT ON LEVO AT 20MCG/MIN, D10 SODIUM CHLORIDE AT 50ML/HR AND SODIUM ACETATE AT 100ML/HR. GT CLAMPED. FC IN PLACE CONNECTED TO CBI. PINKISH TO REDDISH URINE NOTED WITH CLOTS. FLEXISEAL IN PLACE. BLE ELEVATED. PT COMFORTABLE. WILL CLOSELY MONITOR.
[2018-12-28 07:33] LABS: BASOPHILS % (AUTO) 0.1 % (0.0-2.0); EOSINOPHILS % (AUTO) 0.6 % (0.0-6.0); HEMATOCRIT 22 % (33-45); HEMOGLOBIN 7.3 g/dL (11.5-14.8); LYMPHOCYTES # (AUTO) 0.6 /CMM (0.8-4.8); LYMPHOCYTES % (AUTO) 1.9 % (20.0-44.0); MEAN CORPUSCULAR HGB CONC 33 g/dl (31.0-36.0); MEAN CORPUSCULAR VOLUME 93 fL (82-100); MONOCYTES # (AUTO) 0.4 /CMM (0.1-1.30); MONOCYTES % (AUTO) 1.5 % (2.0-12.0); NEUTROPHILS # (AUTO) 27.9 /CMM (1.8-8.9); NEUTROPHILS % (AUTO) 95.9 % (43.0-81.0); PLATELET COUNT (AUTO) 237 /CMM (150-450); RED BLOOD CELL COUNT(AUTO) 2.39 MIL/uL (4.0-5.2)
[2018-12-28] MEDS: POTASSIUM CHLORIDE 20 MEQ POWDER PACKET GT SCH (08:20)
[2018-12-28] MEDS: CITRIC ACID/SODIUM CITRATE (BICITRA)15 ML UDC PO SCH ×4 (08:20→20:55)
[2018-12-28] MEDS: LACTOBACILLUS RHAMNOSUS GG 1 EACH CAP.SPRINK PO SCH ×2 (08:20→16:19)
[2018-12-28] MEDS: PROSOURCE / PROSTAT (PYXIS) 30 ML UDC GT SCH (08:20)
[2018-12-28] MEDS: PANTOPRAZOLE 40 MG/PACK PACK GT SCH ×2 (08:20→20:55)
[2018-12-28] MEDS: ASCORBIC ACID 500 MG TABLET PO SCH (08:20)
[2018-12-28] MEDS: MULTIVITAMINS,THERAGRAN 1 UDTAB TABLET GT SCH (08:20)
[2018-12-28] MEDS: ACETAMINOPHEN 650 MG/20.3 ML UDC GT SCH (08:20)
[2018-12-28] MEDS: Sodium Acetate 150 MEQ in IV D5W 1,000 ML IV PRN ×2 (08:21→16:33)
[2018-12-28] MEDS: ACETYLCYSTEINE 10% SOLN 400 MG/4 ML VIAL NEB SCH ×3 (08:27→23:27)
--- NOTE | 2018-12-28 09:15 | NUR ---
RN NOTES 0845 SEEN AND EXAMINED BY ANTHONY RESENDIZ NP. AWARE OF LAB VALUES: WBC 29, TRENDING DOWN. HGB 7.3, HCT 22, PLATELET 237. PT STILL WITH HEMATURIA. POSTASSIUM 3.1, BUN 29. ALSO AWARE OF CXR RESULT. JOURNALIST ADDED MG AND PHOS LEVEL. AWAITING FOR RESULT 09 SEEN AND EXAMINED BY DR LUJAN. PT OFF SEDATION. NO INTERACTION NOTED. DOES NOT FOLLOW COMMANDS. AWARE OF LATEST LAB VALUES AND CXR RESULT. WILL CONTINUE TO MONITOR.
[2018-12-28 09:25] LABS: ABG BASE EXCESS -12.7 mmol/L; ABG OXYGEN SATURATION 83.7 % (92.0-98.5); ABG PH 7.297 (7.350-7.450); ABG PO2 47.9 mmHg (75.0-100.0); AaDO2 135.5 mmHg; COHb 0.9 % (0.5-1.5); MetHb 1.7 % (0.0-1.5); O2Hb 81.5 % (94.0-97.0); SITE, ABG Right Radial; VT, ABG 500 mL
[2018-12-28 09:25] LABS: PHOSPHORUS 5.3 mg/dL (2.5-4.9)
[2018-12-28 09:35] LABS: MAGNESIUM 1.2 mg/dL (1.8-2.4)
[2018-12-28] MEDS: LINEZOLID RTU BAG 600 MG in PREMIX 1 EA IV SCH (12:59)
[2018-12-28] MEDS: Magnesium 1GM/D5W 100ML PREMIX 100 ML IV SCH ×2 (13:35→14:10)
[2018-12-28] MEDS: POTASSIUM CL. PREMIX PERIPHER. 50 ML IV SCH ×4 (13:36→16:18)
--- NOTE | 2018-12-28 14:08 | NUR ---
SW filed an APS report (Intake ID [id number]) regarding pt's son Paul Trinh who is the next of kin, however he is an alcoholic and has come to visit the pt. intoxicated on several occasions.
[2018-12-28] MEDS: NYSTATIN TOP POWDER 15 GM BOTTLE TP SCH (15:48)
--- NOTE | 2018-12-28 18:33 | NUR ---
RT END OF THE SHIFT REPORT, PT. 78 Y OLD FEMALE ORALLY INTUBATED ETT # 7.5 @23 CM LIP LINE ON VENT WITH NOTED SETTINGS, VENT CHANGES DONE PER DR. LUJAN ORDER. T/O DAY AND PT. REMAIN STABLE B/S BILATERALLY RALES, SUX'D FOR MINIMAL/AMT AMT YELLOW/BROWNISH SECRETIONS, ELECTRIC VEHICLE ELECTRICIAN DONE, EQUAL CHEST RISE NOTED, HME CHANGED, VENT PLUGGED INTO RED OUT LET. AMBU BAG REMAIN AT THE BEDSIDE. REPORT WILL PASS TO PM SHIFT. Addendum: 12/28/18 at 1835 by KARL MORA RT Amended: Links added.
--- NOTE | 2018-12-28 19:40 | NUR ---
RN NOTES RECEIVED PT SEDATED ON BED ORALLY INTUBATED WITH ETT 7.0 AND 23 CM AT LIP CONNECTED TO VENT SETTING AC 20 TV 500 FIO2 50% WITH PEEP 8 TOLERATED WELL SATURATION 98%. PT IS DNR WITH ISOLATION FOR ESBL URINE AND CRE SPUTUM ISOLATION PRECAUTION MET . NSR ON TELE MONITOR. OGT ON LIS GT CLAMPED IV SITE ON CARLOS A WITH DIPRIVAN @ 25 MCG/KG/MIN AND LEVOPHED @ 20 MCG/MIN TITRATED ORDERED PLUS SODIUM ACETATE @ 100 ML/HR AND D10 NS @ 50 ML.HR IV SITE INTACT AND PATENT LH HL C/D/I. CHERY CATH DRAINED WELL VIA GRAVITY WITH IRRIGATION RUNNING @ 600 ML.HR DUE TO HEMATURIA. PER MD CBI UNTIL HEMATURIA IS GONE. FLEXISEAL INTACT WITH SMALL AMT. OF YELLOW LIQUID STOOL. KEPT PT CLEAN AND DRY. WILL T/R Q2H AND PRN, OFFLOADED EXT WITH PILLOWS.
[2018-12-28] MEDS: INSULIN REGULAR, HUMAN 100 UNIT/ML 3 ML VIAL SQ PRN (21:19)
[2018-12-29] VITALS (87 sets, daily range): BP systolic 83–142; BP diastolic 30–102
[2018-12-29] MEDS: METOCLOPRAMIDE HCL 10 MG/2 ML VIAL IV SCH ×5 (00:25→23:33)
[2018-12-29] MEDS: LINEZOLID RTU BAG 600 MG in PREMIX 1 EA IV SCH ×2 (00:26→13:24)
[2018-12-29] MEDS: BLOOD SUGAR DIAGNOSTIC 1 EACH STRIP IN SCH ×6 (00:40→20:42)
[2018-12-29] MEDS: Sodium Acetate 150 MEQ in IV D5W 1,000 ML IV PRN ×2 (03:12→14:16)
[2018-12-29] MEDS: NYSTATIN TOP POWDER 15 GM BOTTLE TP SCH ×2 (03:13→13:46)
[2018-12-29] MEDS: PROPOFOL 100 ML IV PRN ×2 (03:14→17:01)
[2018-12-29] MEDS: ALBUTEROL FS 2.5 MG/0.5 ML VIAL.NEB NEB SCH ×6 (03:23→23:07)
[2018-12-29] MEDS: IPRATROPIUM NEB FS 0.5 MG/2.5 ML AMPUL.NEB NEB SCH ×6 (03:23→23:07)
[2018-12-29 04:19] LABS: BASOPHILS % (AUTO) 0.1 % (0.0-2.0); EOSINOPHILS % (AUTO) 0.9 % (0.0-6.0); HEMATOCRIT 23 % (33-45); HEMOGLOBIN 7.2 g/dL (11.5-14.8); LYMPHOCYTES # (AUTO) 0.5 /CMM (0.8-4.8); LYMPHOCYTES % (AUTO) 1.6 % (20.0-44.0); MEAN CORPUSCULAR HGB CONC 32 g/dl (31.0-36.0); MEAN CORPUSCULAR VOLUME 92 fL (82-100); MONOCYTES # (AUTO) 0.2 /CMM (0.1-1.30); MONOCYTES % (AUTO) 0.8 % (2.0-12.0); NEUTROPHILS # (AUTO) 29.5 /CMM (1.8-8.9); NEUTROPHILS % (AUTO) 96.6 % (43.0-81.0); PLATELET COUNT (AUTO) 286 /CMM (150-450); RED BLOOD CELL COUNT(AUTO) 2.44 MIL/uL (4.0-5.2)
[2018-12-29 04:39] LABS: ALANINE AMINOTRANSFERASE 8 U/L (12-78); ALKALINE PHOSPHATASE 132 U/L (46-116); ASPARTATE AMINOTRANSFERASE 17 U/L (15-37); BILIRUBIN,TOTAL 0.8 mg/dL (0.2-1.0); CALCIUM, SERUM 7.2 mg/dL (8.5-10.1); CARBON DIOXIDE 18 mmol/L (21-32); CHLORIDE 109 mmol/L (98-107); CREATININE 1.1 mg/dL (0.6-1.3); GLUCOSE 186 mg/dL (74-106); MAGNESIUM 1.3 mg/dL (1.8-2.4); POTASSIUM 3.2 mmol/L (3.5-5.1); SODIUM SERUM 139 mmol/L (136-145); TOTAL PROTEIN, SERUM 4.5 g/dL (6.4-8.2); UREA NITROGEN, BLOOD 26 mg/dL (7-18)
[2018-12-29 04:46] LABS: ALBUMIN 0.8 g/dL (3.4-5.0)
[2018-12-29 04:51] LABS: WHITE BLOOD COUNT (AUTO) 30.5 K/uL (4.3-11.0)
[2018-12-29] MEDS: METRONIDAZOLE 500MG/ NS 100ML 500 MG in PREMIX 1 EA IV SCH ×3 (04:57→20:17)
[2018-12-29 04:59] LABS: BAND % (MANUAL) 19 % (0.0-5.0); LYMPHOCYTES % (MANUAL) 1 % (16-48); MONOCYTES % (MANUAL) 1 % (0-11.0); NEUTROPHILS % (MANUAL) 78 (42-76)
[2018-12-29] MEDS: NOREPINEPHRINE 16 MG in IV D5W 500 ML IV PRN ×2 (04:59→23:29)
[2018-12-29] MEDS: INSULIN REGULAR, HUMAN 100 UNIT/ML 3 ML VIAL SQ PRN (05:22)
[2018-12-29] MEDS ORDERED: ALBUMIN 25% 25 GM in PREMIX 1 EA IV SCH (07:00)
[2018-12-29] MEDS ORDERED: POTASSIUM CHLORIDE 20 MEQ POWDER PACKET GT ONE (07:00)
--- NOTE | 2018-12-29 07:00 | NUR ---
RN NOTES REPORTED TO Zunilda VILLASEÑOR REGARDING CRITICAL LAB RESULT OF ALBUMIN 0.8, AND WBC 30 WITH NEW ORDER NOTED AND CARRIED OUT.
--- NOTE | 2018-12-29 07:15 | NUR ---
RECIEVED CARE FROM MAURO OLIVAREZ. PATIENT CONTINUES ON LEVO 18MCG/MIN BP STABLE. ON DIPRIVAN AND TOLERATING WELL. VENT SETTINGS PER ORDER NO SOB DIFFICULTY BREATHING NOTED. IV SITE C/D/I/P WITH GOOD BLOOD RETURN. ALL IVF RUNHING PER MD ORDER. PATIENT CONTINUES ON LIS TO NG TUBE WITH AT THIS TIME ONLY GREEN OUTPUT NOTED. HOWEVER ON ORAL SUCTION RESEMBLES COFFEE GROUND SECRETIONS. ORAL CARE COMPLETED. G TUBE CLAMPED. CHERY CATH TO CONTINUOUS BLADDER IRRIGATION WITH NUMEROUS BLOOD CLOTS REQUIRING TO BE IRRIGATED AND REMOVED FOR CONTINUED PATENCY WITH DARK RED OUTPUT NOTED PER RN. SKIN, SAFETY, ASPIRATION, AND ISOLATION PRECAUTIONS IN PLACE AND WILL BE MONITORED
[2018-12-29] MEDS: ACETYLCYSTEINE 10% SOLN 400 MG/4 ML VIAL NEB SCH ×3 (07:28→23:07)
--- NOTE | 2018-12-29 07:30 | NUR ---
RN NOTES PATIENT REMAINED IN THE SAME CONDITION . NO SIGNIFICANT CHANGES. PATIENT STILL SEDATED FOR COMFORT, PT IS NON RESPONSIVE TO VERBAL STIMULI. CONTINUE WITH DIPRIVAN. NSR ON TELE MONITOR. HEMATURIA STILL NOTED CBI ONGOING, IRRIGATE PRN FOR MORE CLOT BLOOD. FLEXISEAL DUE TO EVULSION FROM THE RECTAL AREA NOTED. OGT ON LIS WITH BILIOUS OUTPUT. CONTINUE RUNNING WITH DIPRIVAN, LEVOPHED TITRATED ORDERED AND SODIUM ACETATE AND D10 NS ORDERED. NO S/S OF HYPOGLYCEMIA THROUGHOUT THE SHIFT. KEPT PT CLEAN AND DRY. ENDORSED CONTINUITY OF CARE TO AM NURSE.
[2018-12-29] MEDS: Magnesium 1GM/D5W 100ML PREMIX 100 ML IV SCH ×4 (07:50→11:04)
[2018-12-29] MEDS: CITRIC ACID/SODIUM CITRATE (BICITRA)15 ML UDC PO SCH ×4 (08:12→20:17)
[2018-12-29] MEDS: ACETAMINOPHEN 650 MG/20.3 ML UDC GT SCH (08:13)
[2018-12-29] MEDS: ASCORBIC ACID 500 MG TABLET PO SCH (08:13)
[2018-12-29] MEDS: LACTOBACILLUS RHAMNOSUS GG 1 EACH CAP.SPRINK PO SCH ×2 (08:13→16:59)
[2018-12-29] MEDS: PANTOPRAZOLE 40 MG/PACK PACK GT SCH ×2 (08:13→20:17)
[2018-12-29] MEDS: MULTIVITAMINS,THERAGRAN 1 UDTAB TABLET GT SCH (08:13)
[2018-12-29] MEDS: PROSOURCE / PROSTAT (PYXIS) 30 ML UDC GT SCH (08:13)
[2018-12-29] MEDS: Z GUARD REMEDY 2 OZ OINT TP PRN ×2 (08:13→17:00)
[2018-12-29 08:47] LABS: ABG OXYGEN SATURATION 98.5 % (92.0-98.5); ABG PCO2 22.6 mmHg (35.0-45.0); ABG PH 7.396 (7.350-7.450); ABG PO2 148.2 mmHg (75.0-100.0); AaDO2 182.9 mmHg; COHb 0.4 % (0.5-1.5); MetHb 0.9 % (0.0-1.5); O2Hb 97.2 % (94.0-97.0); SITE, ABG Left Radial
[2018-12-29] MEDS: POTASSIUM CHLORIDE 20 MEQ POWDER PACKET GT SCH (08:49)
--- NOTE | 2018-12-29 09:00 | NUR ---
JEROMEIED TRINI OF PATIENT VANCO RESISTANT BLOOD CULTURE
[2018-12-29] MEDS: AMIKACIN 750 MG in IV D5W 100 ML IV SCH (09:01)
--- NOTE | 2018-12-29 10:30 | NUR ---
PATIENT URINE NOTED TO BE DARKER AND BLOODIER. COFFE GROUND COMING FROM MOUTH DESPITE LIS NG TUBE WHICH IS IN PLACE AND VERIFIED. WILL RE CHECK HH.
[2018-12-29] MEDS: ALBUMIN 25% 25 GM in PREMIX 1 EA IV SCH ×3 (10:45→21:42)
--- NOTE | 2018-12-29 11:00 | NUR ---
TRINI AT BEDSIDE. AWARE OF PATIENT LABS, VS, CURRENT CONDITION. PER TAX ACCOUNTING ASSISTANT POSSIBLY WILL REMOVE AND INSERT NEW PICC LINE
--- NOTE | 2018-12-29 11:10 | NUR ---
OFFSHORE DIVER ASTRID AT BEDSIDE. AWARE PATIENT INCREASE BLOODY DRAINAGE WITH CHERY OUTPUT AND COFFEE GROUND SECRETIONS FROM MOUTH NOTED; NO LONGER JUST GREEN. HH PENDING. PER REPORT PATIENT IS MORE SWOLLEN TODAY AND NISHANT AT BEDSIDE AND STATES TOES ARE DARKER/JONATHAN.
[2018-12-29 11:32] LABS: HEMOGLOBIN 7.2 g/dL (11.5-14.8)
[2018-12-29] MEDS: SPIRONOLACTONE 25 MG TABLET PO SCH (12:16)
[2018-12-29] MEDS ORDERED: POTASSIUM CL. PREMIX PERIPHER. 50 ML IV SCH (12:22)
[2018-12-29] MEDS: Sodium Chloride 154 MEQ in IV 10% DEXTROSE 1,000 ML IV PRN (13:07)
[2018-12-29 17:06] LABS: CHOLESTEROL 40 mg/dL (<200); HDL CHOLESTEROL 19 mg/dL (40-60); LDL 10 mg/dL (0-99); TRIGLYCERIDES 38 mg/dL (30-150)
--- NOTE | 2018-12-29 19:24 | NUR ---
PT RECEIVED ORALLY INTUBATED WITH 7.0 ETT SECURED@ 23 CM ON MECHANICAL VENT W/ NOTED SETTINGS PER MD ORDER. PT IS NON RESPONSIVE, RESPONDS TO STIMULI WHEN SUCTION. VENT ALARMS CHECKED, VENT PLUGGED INTO RED OUTLET, AMBU BAG AT BEDSIDE. PT SUCTIONED AND LAVAGED PRN. BREATHING TX GIVEN PER MD ORDER, NO ADVERSE REACTION NOTED. ETT PATENT AND SECURED. SWIMMER CUFF PRESSURE NOTED. NO RESPIRATORY DISTRESS NOTED AT THIS TIME . WILL CONTINUE TO MONITOR THE PT.
--- NOTE | 2018-12-29 19:39 | NUR ---
CARE ENDORSED TO MAURO MARES FOR JACK. PATIENT CONTINUES ON LEVO 4MCG/MIN BP STABLE. OFF DIPRIVAN AND TOLERATING WELL. VENT SETTINGS PER ORDER NO SOB DIFFICULTY BREATHING NOTED. IV SITE C/D/I/P WITH GOOD BLOOD RETURN. ALL IVF RUNING PER MD ORDER. PATIENT CONTINUES ON LIS TO NG TUBE WITH AT THIS TIME ONLY GREEN OUTPUT NOTED. ORAL CARE COMPLETED Q2H. G TUBE CLAMPED. CHERY CATH TO CONTINUOUS BLADDER IRRIGATION WITH NUMEROUS BLOOD CLOTS REQUIRING TO BE IRRIGATED AND REMOVED FOR CONTINUED PATENCY WITH DARK RED OUTPUT NOTED. SKIN, SAFETY, ASPIRATION, AND ISOLATION PRECAUTIONS IN PLACE AND MONITORED
[2018-12-30] VITALS (90 sets, daily range): BP systolic 75–140; BP diastolic 45–89
[2018-12-30] MEDS: LINEZOLID RTU BAG 600 MG in PREMIX 1 EA IV SCH ×2 (00:02→14:24)
[2018-12-30] MEDS: DEXTROSE 50%-WATER 50 ML DISP.SYRIN IV PRN (01:19)
[2018-12-30] MEDS: BLOOD SUGAR DIAGNOSTIC 1 EACH STRIP IN SCH ×6 (01:28→22:07)
[2018-12-30] MEDS: Sodium Acetate 150 MEQ in IV D5W 1,000 ML IV PRN ×2 (01:48→16:07)
[2018-12-30] MEDS: PROPOFOL 100 ML IV PRN (02:14)
[2018-12-30] MEDS: NYSTATIN TOP POWDER 15 GM BOTTLE TP SCH ×2 (02:34→14:34)
[2018-12-30] MEDS: IPRATROPIUM NEB FS 0.5 MG/2.5 ML AMPUL.NEB NEB SCH ×6 (03:44→22:52)
[2018-12-30] MEDS: ALBUTEROL FS 2.5 MG/0.5 ML VIAL.NEB NEB SCH ×6 (03:44→22:52)
[2018-12-30] MEDS: METRONIDAZOLE 500MG/ NS 100ML 500 MG in PREMIX 1 EA IV SCH ×3 (03:49→20:51)
[2018-12-30] MEDS: ALBUMIN 25% 25 GM in PREMIX 1 EA IV SCH (03:50)
[2018-12-30 04:52] LABS: ALANINE AMINOTRANSFERASE 6 U/L (12-78); ALBUMIN 2.2 g/dL (3.4-5.0); ALKALINE PHOSPHATASE 99 U/L (46-116); ASPARTATE AMINOTRANSFERASE 14 U/L (15-37); BILIRUBIN,TOTAL 1.1 mg/dL (0.2-1.0); CALCIUM, SERUM 7.3 mg/dL (8.5-10.1); CARBON DIOXIDE 17 mmol/L (21-32); CHLORIDE 107 mmol/L (98-107); CREATININE 1.1 mg/dL (0.6-1.3); GLUCOSE 162 mg/dL (74-106); MAGNESIUM 1.7 mg/dL (1.8-2.4); PHOSPHORUS 4.7 mg/dL (2.5-4.9); SODIUM SERUM 141 mmol/L (136-145); TOTAL PROTEIN, SERUM 4.8 g/dL (6.4-8.2); UREA NITROGEN, BLOOD 22 mg/dL (7-18)
[2018-12-30 05:04] LABS: POTASSIUM 2.8 mmol/L (3.5-5.1)
[2018-12-30] MEDS: METOCLOPRAMIDE HCL 10 MG/2 ML VIAL IV SCH ×3 (05:25→17:38)
[2018-12-30 05:34] LABS: EOSINOPHILS % (AUTO) 0.4 % (0.0-6.0); LYMPHOCYTES # (AUTO) 0.3 /CMM (0.8-4.8); LYMPHOCYTES % (AUTO) 1.2 % (20.0-44.0); MEAN CORPUSCULAR HGB CONC 33 g/dl (31.0-36.0); MEAN CORPUSCULAR VOLUME 92 fL (82-100); MONOCYTES # (AUTO) 0.2 /CMM (0.1-1.30); MONOCYTES % (AUTO) 0.8 % (2.0-12.0); NEUTROPHILS # (AUTO) 22.6 /CMM (1.8-8.9); NEUTROPHILS % (AUTO) 97.6 % (43.0-81.0); PLATELET COUNT (AUTO) 185 /CMM (150-450); WHITE BLOOD COUNT (AUTO) 23.1 K/uL (4.3-11.0)
[2018-12-30 05:35] LABS: RED BLOOD CELL COUNT(AUTO) 1.95 MIL/uL (4.0-5.2)
[2018-12-30 05:37] LABS: HEMATOCRIT 18 % (33-45); HEMOGLOBIN 5.9 g/dL (11.5-14.8)
[2018-12-30] MEDS: POTASSIUM CL. PREMIX PERIPHER. 50 ML IV SCH ×6 (05:45→12:18)
[2018-12-30] MEDS: ACETYLCYSTEINE 10% SOLN 400 MG/4 ML VIAL NEB SCH ×3 (08:14→22:52)
--- NOTE | 2018-12-30 08:14 | NUR ---
ICU/RN NOTES: RECEIVED PT. IN BED W/ HOB ELEVATED. NON RESPONSIVE. BUT RESPONSIVE TO PAINFUL STIMULI. W/ ETT 7.0/ 23 W/ VENT SETTINGS TOLERATING WELL. HAS NGT TO LIS W/ GREENISH COLOR OUTPUT ABOUT 225 ML . GT CLAMPED DUE TO HIGH RESIDUALS. W/ CONTINUOUS BLADDER IRRIGATION W/ BLOOD CLOTS W/ REDDISH COLOR URINE NOTED NEEDED TO BE IRRIGATED MULTIPLE TIMES TO REMOVE THE CLOTS. ASPIRATION AND ISOLATION PRECAUTION MAINTAINED. HAS A CARLOS A PICC LINE W/ DRESSING C/D/I W/ NO S/S OF INFECTION/INFILTRATION NOTED. ELVIS FROM LAB CALLED W/ CRITICAL OF H/H 5.[address]8. [address]. STUART HERE W/ ORDERS FOR 60 MEQ IV EVERY HR TOTAL OF 6 BAGS. TYPE AND SCREEN ORDERED. REPORT GIVEN TO AM SHIFT NURSE. GAVE 2 BAGS OF K. BED BATH GIVEN. WILL CONTINUE TO MONITOR.
[2018-12-30] MEDS: ACETAMINOPHEN 650 MG/20.3 ML UDC GT SCH (08:29)
[2018-12-30] MEDS: MULTIVITAMINS,THERAGRAN 1 UDTAB TABLET GT SCH (08:29)
[2018-12-30] MEDS: ASCORBIC ACID 500 MG TABLET PO SCH (08:29)
[2018-12-30] MEDS: PANTOPRAZOLE 40 MG/PACK PACK GT SCH ×2 (08:29→20:51)
[2018-12-30] MEDS: SPIRONOLACTONE 25 MG TABLET PO SCH (08:29)
[2018-12-30] MEDS: LACTOBACILLUS RHAMNOSUS GG 1 EACH CAP.SPRINK PO SCH ×2 (08:29→17:00)
[2018-12-30] MEDS: CITRIC ACID/SODIUM CITRATE (BICITRA)15 ML UDC PO SCH ×4 (08:29→20:52)
[2018-12-30] MEDS: POTASSIUM CHLORIDE 20 MEQ POWDER PACKET GT SCH (08:29)
[2018-12-30 08:41] LABS: ABG BASE EXCESS -8.6 mmol/L; ABG OXYGEN SATURATION 98.3 % (92.0-98.5); ABG PCO2 23.3 mmHg (35.0-45.0); ABG PH 7.426 (7.350-7.450); ABG PO2 163.3 mmHg (75.0-100.0); COHb 0.6 % (0.5-1.5); MetHb 1.4 % (0.0-1.5); O2Hb 96.3 % (94.0-97.0); PEEP,BG 8 cm H2O; SITE, ABG Left Radial; VT, ABG 500 mL
[2018-12-30] MEDS: PROSOURCE / PROSTAT (PYXIS) 30 ML UDC GT SCH (09:12)
--- NOTE | 2018-12-30 10:07 | NUR ---
RN NOTE 0715: received patient obtunded. On 5mcg of Diprivan. Turned off and will monitor for any agitations, responds to deep pain at this time. CARLOS A PICC intact. On Levo @ 10mcg, will titrate as ordered. Corbin cath intact, on CBI, still noted with blood tinged color (pinkish), on 600mL/hr, placed on 300 mL/hr CBI, will continue to monitor. SR 90's on the monitor. OTGT to LIS, noted with bile colored residuals. On IVF of Sodium acetate @ 100 and D10NS @ 50 for episodes of hypoglycemia. On isolation prec for ESBL urine, VRE blood and CRE sputum, maintained and observed. 0900: Tried to administer meds through GT, clamped OGT for now but noted with med colored residuals coming out from mouth. Restarted LIS suction. Kept HOB elevated. 0920: S/E by Dr. Beatty, no new order at this time. 0930: Started patient on blood transfusion. Will monitor for changes and reactions. 1000: No any significant changes, placed blood transfusion rate to 125mL/hr. Will continue to monitor.
--- NOTE | 2018-12-30 10:30 | NUR ---
RT TITRATED 02 40% PEEP +5 PER MD PELEG
--- NOTE | 2018-12-30 11:48 | NUR ---
RN NOTE S/E by Preston DURHAM, with order to give another unit of PRBC. He said he will call family and discuss re: the POC and re: changing code status.
[2018-12-30] MEDS: Magnesium 1GM/D5W 100ML PREMIX 100 ML IV SCH ×2 (12:21→14:09)
[2018-12-30] MEDS: Sodium Chloride 154 MEQ in IV 10% DEXTROSE 1,000 ML IV PRN (16:07)
[2018-12-30] MEDS: NOREPINEPHRINE 16 MG in IV D5W 500 ML IV PRN (16:42)
--- NOTE | 2018-12-30 16:57 | NUR ---
RN LUKE Johnston HEAT REGULATOR came back, informed me and CN, he spoke with another son of the patient and given Lupe, granddaughter the right to decide for patient's status. HEAT REGULATOR said Lupe will come tomorrow and planning to change to comfort measures.
--- NOTE | 2018-12-30 17:49 | NUR ---
RT RECD PT INTUBATED WITH 7.0 ETT 23CM AT LIP LINE ON MECH VENT ORTIZ ORDERED SETTINGS ALARMS ON AND AUDIBLE BAG AND MASK AT HOB TX GIVEN NO ADVERSE REACTION NOTED ATT NO RESP DISTRESS THROUGHOUT SHIFT WILL CONT TO MONITOR
--- NOTE | 2018-12-30 18:32 | NUR ---
RN NOTE 174: Son, Paul in the unit, all questions were answered but patient is not accepting well. Recommended to call other family members especially Lupe, granddaughter because she is the updated personnel. 1819: Lupe called and given update. She said she will try to reach Paramjit, other son of patient not change timing of the plan of terminal extubation tomorrow. Asked Lupe to inform other family members re: the plan so everything on the same page and not being hysterical with the decision, Lupe agreed. Palmiraon, one daughter of patient called and informed to call Lupe to get update.
--- NOTE | 2018-12-30 19:15 | NUR ---
STUDENT SUPPORT COUNSELOR: RECEIVED PT ORALLY INTUBATED WT VENT SETTINGS ORDERED. OBTUNDED, WITHDRAWS TO PAIN STIMULI WT FACIAL GRIMACE. ST ON LINE INSTALLER WT HR IN LOW 100s. AFEBRILE. OGT TO LTS WT GREENISH SECRETION. GT CLAMPED AND REMAINS NPO. CARLOS A PICC RUNNING CBI TO F/C AT 300ML/HR WT HEMATURIA/BLOOD CLOTS. STILL OFF LEVOPHED AND DIPRIVAN. CONTINUE ON NA ACETATE AT 100ML/HR AND D10NS AT 50ML/HR. NO S/S OF PICC LINE COMPLICATION. HOB AT 35 DEGREES. ISOLATION AND SAFETY PRECAUTIONS NOTED. WILL CONTINUE TO MONITOR.
--- NOTE | 2018-12-30 19:37 | NUR ---
PT RECEIVED ORALLY INTUBATED WITH 7.0 ETT SECURED@ 23 CM ON MECHANICAL VENT W/ NOTED SETTINGS PER MD ORDER. PT RESPONDS TO STIMULI WHEN SUCTION. VENT ALARMS CHECKED, VENT PLUGGED INTO RED OUTLET, AMBU BAG AT BEDSIDE. PT SUCTIONED AND LAVAGED PRN. BREATHING TX GIVEN PER MD ORDER, NO ADVERSE REACTION NOTED. ETT PATENT AND SECURED. CRUSHER AND BINDER OPERATOR CUFF PRESSURE NOTED. NO RESPIRATORY DISTRESS NOTED AT THIS TIME . WILL CONTINUE TO MONITOR THE PT.
[2018-12-30] MEDS: AMIKACIN 750 MG in IV D5W 100 ML IV SCH (20:14)
--- NOTE | 2018-12-30 23:00 | NUR ---
SOLID SURFACE FABRICATOR: RESTARTED LEVOPHED AT 1MCG/MIN FOR SBP LESS THAN 90. WILL TITRATE NEEDED.
[2018-12-31] VITALS (96 sets, daily range): BP systolic 64–165; BP diastolic 32–90
[2018-12-31] MEDS: BLOOD SUGAR DIAGNOSTIC 1 EACH STRIP IN SCH ×6 (01:29→21:35)
[2018-12-31] MEDS: LINEZOLID RTU BAG 600 MG in PREMIX 1 EA IV SCH ×2 (01:30→12:36)
[2018-12-31] MEDS: NYSTATIN TOP POWDER 15 GM BOTTLE TP SCH ×2 (01:37→15:17)
[2018-12-31] MEDS: Sodium Acetate 150 MEQ in IV D5W 1,000 ML IV PRN ×2 (02:45→14:15)
[2018-12-31] MEDS: ALBUTEROL FS 2.5 MG/0.5 ML VIAL.NEB NEB SCH ×6 (03:10→23:56)
[2018-12-31] MEDS: IPRATROPIUM NEB FS 0.5 MG/2.5 ML AMPUL.NEB NEB SCH ×6 (03:11→23:56)
[2018-12-31] MEDS: METRONIDAZOLE 500MG/ NS 100ML 500 MG in PREMIX 1 EA IV SCH ×3 (04:03→20:39)
[2018-12-31] MEDS: IV NS 0.9% 250 ML IV PRN (04:05)
[2018-12-31 05:00] LABS: BASOPHILS % (AUTO) 0.1 % (0.0-2.0); EOSINOPHILS % (AUTO) 0.3 % (0.0-6.0); HEMATOCRIT 27 % (33-45); LYMPHOCYTES # (AUTO) 0.3 /CMM (0.8-4.8); LYMPHOCYTES % (AUTO) 0.9 % (20.0-44.0); MEAN CORPUSCULAR HGB CONC 33 g/dl (31.0-36.0); MEAN CORPUSCULAR VOLUME 91 fL (82-100); MONOCYTES # (AUTO) 0.2 /CMM (0.1-1.30); MONOCYTES % (AUTO) 0.8 % (2.0-12.0); NEUTROPHILS # (AUTO) 28.6 /CMM (1.8-8.9); NEUTROPHILS % (AUTO) 97.9 % (43.0-81.0); PLATELET COUNT (AUTO) 134 /CMM (150-450); RED BLOOD CELL COUNT(AUTO) 2.99 MIL/uL (4.0-5.2); WHITE BLOOD COUNT (AUTO) 29.2 K/uL (4.3-11.0)
[2018-12-31 05:16] LABS: ALANINE AMINOTRANSFERASE < 6 U/L (12-78); ALBUMIN 1.8 g/dL (3.4-5.0); ALKALINE PHOSPHATASE 111 U/L (46-116); ASPARTATE AMINOTRANSFERASE 24 U/L (15-37); BILIRUBIN,TOTAL 1.6 mg/dL (0.2-1.0); CALCIUM, SERUM 7.5 mg/dL (8.5-10.1); CARBON DIOXIDE 19 mmol/L (21-32); CHLORIDE 107 mmol/L (98-107); CREATININE 1.1 mg/dL (0.6-1.3); GLUCOSE 167 mg/dL (74-106); MAGNESIUM 1.8 mg/dL (1.8-2.4); POTASSIUM 3.4 mmol/L (3.5-5.1); SODIUM SERUM 139 mmol/L (136-145); TOTAL PROTEIN, SERUM 4.4 g/dL (6.4-8.2); UREA NITROGEN, BLOOD 21 mg/dL (7-18)
[2018-12-31] MEDS: METOCLOPRAMIDE HCL 10 MG/2 ML VIAL IV SCH ×4 (05:25→17:25)
[2018-12-31 06:21] LABS: D-DIMER 6.5 mg/L(FEU (0.17-0.50)
--- NOTE | 2018-12-31 06:50 | NUR ---
FOLDER AND NOTCHER: REMAINS OBTUNDED. STILL ON LEVOPHED AT 3MCG/MIN FOR BP SUPPORT. SR ON DEEP TISSUE MASSAGE THERAPIST. PLACED ON TALI HUGGER FOR TEMP TRENDING DOWN TO 96.9. URINE OUTPUT STILL WT HEMATURIA AND A LOT OF CLOTS. ALL NEEDS MET. HOB AT 35 DEGREES.
[2018-12-31] MEDS: ACETYLCYSTEINE 10% SOLN 400 MG/4 ML VIAL NEB SCH ×3 (07:38→23:56)
[2018-12-31] MEDS: ASCORBIC ACID 500 MG TABLET PO SCH (09:00)
[2018-12-31] MEDS: ACETAMINOPHEN 650 MG/20.3 ML UDC GT SCH (09:00)
[2018-12-31] MEDS: MULTIVITAMINS,THERAGRAN 1 UDTAB TABLET GT SCH (09:00)
[2018-12-31] MEDS: SPIRONOLACTONE 25 MG TABLET PO SCH (09:00)
[2018-12-31] MEDS: PROSOURCE / PROSTAT (PYXIS) 30 ML UDC GT SCH (09:00)
[2018-12-31] MEDS: POTASSIUM CHLORIDE 20 MEQ POWDER PACKET GT SCH (09:00)
[2018-12-31] MEDS: PANTOPRAZOLE 40 MG/PACK PACK GT SCH ×2 (09:00→20:39)
[2018-12-31] MEDS: LACTOBACILLUS RHAMNOSUS GG 1 EACH CAP.SPRINK PO SCH ×2 (09:00→16:28)
[2018-12-31] MEDS: CITRIC ACID/SODIUM CITRATE (BICITRA)15 ML UDC PO SCH ×4 (09:00→20:39)
[2018-12-31] MEDS: POTASSIUM CL. PREMIX PERIPHER. 50 ML IV SCH ×4 (10:25→13:00)
--- NOTE | 2018-12-31 11:22 | NUR ---
RN NOTE 0715: Received patient obtunded, noted with facial grimace to pain. With ETT to vent, tolerated settings at this time. With CARLOS A PICC intact. On Levo at 3mcg. With OGT intact, noted greenish residuals, connected to LIS. Still noted with oral discharge even on LIS. Kept HOB elevated. With Corbin cath intact, noted with hematuria still, connected with continuous bladder irrigation. Generalized anasarca. On Sodium acetate @ 100 and D10NS @ 50. 0800: S/E by Dr. Gonzales, changed D10NS with K. 0830: Lupe called and updated re: the patient. Said she is still trying to reach Paramjit. 0845: Paramjit called and informed him Lupe is trying to reach her, told him to call Lupe re: the change of status. Praamjit said he will be here on Thursday or , and will change code status when he or Brant arrives. 0920: S/E by Preston DURHAM, mentioned that Paramjit, son postponed the change to comfort measures status to Thursday, he will come or Brant, another son on Thursday. 0930: Tried to call Lupe to inform re: the call received from Paramjit but no answer. 1000: Replacing K with 4 bags, will start the new bag of D10NS with 40 K after KCl given. 1120: No any significant changes noted at this time. Kept clean, warm and dry. Needs attended. Isolation precaution maintained and observed.
--- NOTE | 2018-12-31 11:32 | NUR ---
RN NOTE Tried to contact Lupe again at this time, still no answer.
--- NOTE | 2018-12-31 11:32 | NUR ---
RT NOTE RECEIVED PT MECHANICALLY VENTILATED VIA 7.0 ETT 23 CM AT LIP. CUFF INFLATED. ETT SECURE. VENTILATOR SETTINGS PRESCRIBED. ALARMS SET PER PROTOCOL AND AUDIBLE. VENT PLUGGED IN TO RED OUTLET. AMBU BAG AT BED SIDE. NO DISTRESS NOTED AT MOMENT. Addendum: 12/31/18 at 1134 by LATA PAIGE RT Amended: Links added.
--- NOTE | 2018-12-31 12:41 | NUR ---
RN NOTE ABG result reported to Dr. Beatty in the unit, per it is a venous reading pO2 33.5, 100% sat on the monitor. He said he will review other labs if needed to continue Na acetate.
[2018-12-31] MEDS: SODIUM CHLORIDE IV PRN (13:22)
[2018-12-31] MEDS: DEXTROSE IV PRN (13:22)
[2018-12-31] MEDS: POTASSIUM CHLORIDE IV PRN (13:22)
[2018-12-31] MEDS: NOREPINEPHRINE 16 MG in IV D5W 500 ML IV PRN (16:57)
--- NOTE | 2018-12-31 19:30 | NUR ---
CLINICAL OUTCOMES MANAGER: RECEIVED ORALLY INTUBATED WT VENT SETTINGS ORDERED. NO ACUTE DISTRESS, NO EVIDENCE OF DISCOMFORT. VS WITHIN BASELINE. OGT TO LIS WT DARK GREEN GASTRIC SECRETIONS. GT CLAMPED. CONTINUE ON CBI AT 400ML/HR, LEVOPHED AT 2 MCG/MIN, NA ACETATE 150 MEQ AT 100ML/HR AND D10 NACL WT KCL 40MEQ AT 50ML/HR. NO S/S OF PICC LINE COMPLICATIONS. F/C PATENT AND INTACT DRAINING PINK TINGED URINE. HOB AT 35 DEGREES. ISOLATION PRECAUTION NOTED. WILL CONTINUE TO MONITOR.
--- NOTE | 2018-12-31 20:15 | NUR ---
TRADE RECRUITER: CALLED AND SPOKE WT DR. CABRERA RE PTT=82.5 AND ABG HGB= 6.3 FOR THIS AM RESULTS AND ASKED IF SHE HAS ANY NEW ORDER. PT STILL ON CBI WT PINK TINGED URINE OUTPUT AND SOME ORAL BLEED DURING SUCTIONING. WT ORDERS TO GIVE 2 FFPs, CBC STAT AND IF HGB IS LESS THAN 8, GIVE 1 UNIT PRBC. NOTED AND CARRIED OUT.
[2018-12-31 20:37] LABS: BASOPHILS % (AUTO) 0.2 % (0.0-2.0); EOSINOPHILS % (AUTO) 0.5 % (0.0-6.0); HEMATOCRIT 26 % (33-45); HEMOGLOBIN 8.9 g/dL (11.5-14.8); LYMPHOCYTES # (AUTO) 0.2 /CMM (0.8-4.8); MEAN CORPUSCULAR HGB CONC 34 g/dl (31.0-36.0); MEAN CORPUSCULAR VOLUME 89 fL (82-100); MONOCYTES # (AUTO) 0.2 /CMM (0.1-1.30); MONOCYTES % (AUTO) 0.7 % (2.0-12.0); NEUTROPHILS # (AUTO) 24.1 /CMM (1.8-8.9); NEUTROPHILS % (AUTO) 97.6 % (43.0-81.0); PLATELET COUNT (AUTO) 97 /CMM (150-450); RED BLOOD CELL COUNT(AUTO) 2.96 MIL/uL (4.0-5.2); WHITE BLOOD COUNT (AUTO) 24.6 K/uL (4.3-11.0)
--- NOTE | 2018-12-31 20:50 | NUR ---
DRAPERY AND UPHOLSTERY ESTIMATOR: HGB RESULTED TO 8.9. NO NEED TO GIVE 1 UNIT PRBC AT THIS TIME.
[2018-12-31 20:54] LABS: BAND % (MANUAL) 9 % (0.0-5.0); EOSINOPHILS % (MANUAL) 1 % (0-4); LYMPHOCYTES % (MANUAL) 3 % (16-48); MONOCYTES % (MANUAL) 2 % (0-11.0); NEUTROPHILS % (MANUAL) 85 (42-76)
--- NOTE | 2018-12-31 22:00 | NUR ---
FIXTURE FABRICATOR REPAIRER: STARTED FIRST UNIT OF FFP AND WILL MONITOR FOR ADVERSE REACTIONS.
--- NOTE | 2018-12-31 23:15 | NUR ---
GENERAL ACCOUNTANT: FIRST FFP TRANSFUSED WT NO ASE.
[2019-01-01] VITALS (91 sets, daily range): BP systolic 81–131; BP diastolic 40–77
--- NOTE | 2019-01-01 00:15 | NUR ---
WOOD CREW SUPERVISOR: 2ND UNIT FFP STARTED TRANSFUSION. WILL CONTINUE TO MONITOR ADVERSE REACTIONS.
[2019-01-01] MEDS: METOCLOPRAMIDE HCL 10 MG/2 ML VIAL IV SCH ×5 (00:24→23:46)
[2019-01-01] MEDS: Sodium Acetate 150 MEQ in IV D5W 1,000 ML IV PRN (00:30)
[2019-01-01] MEDS: LINEZOLID RTU BAG 600 MG in PREMIX 1 EA IV SCH ×2 (01:20→13:08)
[2019-01-01] MEDS: BLOOD SUGAR DIAGNOSTIC 1 EACH STRIP IN SCH ×6 (01:30→21:50)
--- NOTE | 2019-01-01 01:30 | NUR ---
STRATEGIC PLANNING SPECIALIST: 2ND UNIT FFP TRANSFUSED WT NO ADVERSE REACTIONS.
[2019-01-01] MEDS: NYSTATIN TOP POWDER 15 GM BOTTLE TP SCH ×2 (01:32→14:46)
[2019-01-01] MEDS: ALBUTEROL FS 2.5 MG/0.5 ML VIAL.NEB NEB SCH ×5 (04:06→19:51)
[2019-01-01] MEDS: IPRATROPIUM NEB FS 0.5 MG/2.5 ML AMPUL.NEB NEB SCH ×5 (04:07→19:51)
[2019-01-01 04:38] LABS: EOSINOPHILS % (AUTO) 0.5 % (0.0-6.0); HEMATOCRIT 26 % (33-45); HEMOGLOBIN 8.5 g/dL (11.5-14.8); LYMPHOCYTES # (AUTO) 0.2 /CMM (0.8-4.8); LYMPHOCYTES % (AUTO) 0.9 % (20.0-44.0); MEAN CORPUSCULAR HGB CONC 33 g/dl (31.0-36.0); MEAN CORPUSCULAR VOLUME 91 fL (82-100); MONOCYTES # (AUTO) 0.1 /CMM (0.1-1.30); MONOCYTES % (AUTO) 0.6 % (2.0-12.0); PLATELET COUNT (AUTO) 87 /CMM (150-450); RED BLOOD CELL COUNT(AUTO) 2.86 MIL/uL (4.0-5.2); WHITE BLOOD COUNT (AUTO) 22.5 K/uL (4.3-11.0)
[2019-01-01] MEDS: IV NS 0.9% 250 ML IV PRN (04:40)
[2019-01-01] MEDS: METRONIDAZOLE 500MG/ NS 100ML 500 MG in PREMIX 1 EA IV SCH ×3 (04:42→20:01)
[2019-01-01 04:53] LABS: CALCIUM, SERUM 7.4 mg/dL (8.5-10.1); CARBON DIOXIDE 20 mmol/L (21-32); CHLORIDE 106 mmol/L (98-107); CREATININE 0.9 mg/dL (0.6-1.3); GLUCOSE 130 mg/dL (74-106); MAGNESIUM 1.5 mg/dL (1.8-2.4); PHOSPHORUS 4.5 mg/dL (2.5-4.9); POTASSIUM 3.5 mmol/L (3.5-5.1); SODIUM SERUM 139 mmol/L (136-145); UREA NITROGEN, BLOOD 19 mg/dL (7-18)
[2019-01-01 05:41] LABS: LYMPHOCYTES % (MANUAL) 1 % (16-48); MONOCYTES % (MANUAL) 1 % (0-11.0); NEUTROPHILS % (MANUAL) 98 (42-76)
--- NOTE | 2019-01-01 06:50 | NUR ---
MOTOR TRANSPORT INSPECTOR: NO JACK. STILL ON LEVOPHED 2MCG/MIN, MODERATE ORAL BLEEDING AND STILL HEMATURIA.
--- NOTE | 2019-01-01 07:10 | NUR ---
RN NOTES RECEIVED PT ON BED, ORALLY INTUBATED, TOLERATING CURRENT VENT SETTINGS WELL, O2 SAT 100%, NO DISTRESS NOTED, OGT TO LIS WITH DARK GREEN GASTRIC SECRETIONS. GT CLAMPED. CONTINUE BLADDER IRRIGATION AT 300CC/HR , LEVOPHED AT 2 MCG/MIN, NA ACETATE AT 100ML/HR AND D10 NACL WT KCL 40MEQ AT 50ML/HR RUNNING VIA R UPPER ARM PICC LINE ,SITE CLEAN, DRY AND INTACT, CHERY PATENT AND INTACT DRAINING PINK TINGED URINE. SR UP x3, CALL LIGHT WITHIN EASY REACH, ISOLATION PRECAUTION NOTED. WILL CONTINUE TO MONITOR.
[2019-01-01] MEDS: ACETYLCYSTEINE 10% SOLN 400 MG/4 ML VIAL NEB SCH ×2 (07:57→15:35)
[2019-01-01] MEDS: POTASSIUM CHLORIDE 20 MEQ POWDER PACKET GT SCH (08:17)
[2019-01-01] MEDS: PROSOURCE / PROSTAT (PYXIS) 30 ML UDC GT SCH (08:17)
[2019-01-01] MEDS: PANTOPRAZOLE 40 MG/PACK PACK GT SCH ×2 (08:17→20:12)
[2019-01-01] MEDS: ASCORBIC ACID 500 MG TABLET PO SCH (08:18)
[2019-01-01] MEDS: ACETAMINOPHEN 650 MG/20.3 ML UDC GT SCH (08:18)
[2019-01-01] MEDS: LACTOBACILLUS RHAMNOSUS GG 1 EACH CAP.SPRINK PO SCH ×2 (08:18→16:17)
[2019-01-01] MEDS: CITRIC ACID/SODIUM CITRATE (BICITRA)15 ML UDC PO SCH ×4 (08:18→20:12)
[2019-01-01] MEDS: SPIRONOLACTONE 25 MG TABLET PO SCH (08:18)
[2019-01-01] MEDS: MULTIVITAMINS,THERAGRAN 1 UDTAB TABLET GT SCH (08:18)
[2019-01-01 08:52] LABS: ABG BASE EXCESS -3.4 mmol/L; ABG OXYGEN SATURATION 97.9 % (92.0-98.5); ABG PCO2 26.8 mmHg (35.0-45.0); ABG PH 7.474 (7.350-7.450); ABG PO2 141.1 mmHg (75.0-100.0); AaDO2 113.3 mmHg; COHb 0.3 % (0.5-1.5); MetHb 1.3 % (0.0-1.5); O2Hb 96.3 % (94.0-97.0); SITE, ABG Right Radial; VENT MODE, BG AC 20 500 40% +5
--- NOTE | 2019-01-01 09:00 | NUR ---
RN NOTES , MORNING GT MEDS HELD PER ANTHONY RESENDIZ ORDER .
[2019-01-01] MEDS: AMIKACIN 750 MG in IV D5W 100 ML IV SCH (10:05)
[2019-01-01] MEDS: DEXTROSE IV PRN (10:10)
[2019-01-01] MEDS: POTASSIUM CHLORIDE IV PRN (10:10)
[2019-01-01] MEDS: SODIUM CHLORIDE IV PRN (10:10)
[2019-01-01] MEDS: Magnesium 1GM/D5W 100ML PREMIX 100 ML IV SCH ×2 (11:06→12:36)
--- NOTE | 2019-01-01 11:33 | NUR ---
DECREASED RR TO [address] LUJAN REQUEST Addendum: 01/01/19 at 1133 by ALEX WEN RT Amended: Links added.
--- NOTE | 2019-01-01 16:11 | NUR ---
RN NOTES PHARMACY NOTIFED REGARDING AMIKACIN 10.1, SPOKEN OT OMAR Melissa
[2019-01-01] MEDS: NOREPINEPHRINE 16 MG in IV D5W 500 ML IV PRN (16:46)
--- NOTE | 2019-01-01 18:00 | NUR ---
RN NOTES UNABLE TO WEAN PT OFF LEVO GTT ON THIS SHIFT, NO SIGNIFICANT CHANGES NOTED ON THIS SHIFT,CONTINUOUS BLADDER IRRIGATION RUNNING WITH LIGHT BLOODY URINE DRAINING , SR UP x3, CALL LIGHT WITHIN EASY REACH, BED LOCKED AND IN LOWEST POSITION , WILL ENDOSE TO HUMAN SERVICE WORKER NURSE FOR CONTINUITY OF CARE .
--- NOTE | 2019-01-01 21:50 | NUR ---
UNABLE TO OBTAIN BLOOD GLUCOSE READING, LAB CALLED AND STAT GLUCOSE LEVEL ORDERED.
--- NOTE | 2019-01-01 22:15 | NUR ---
LAB AT BEDSIDE, UNABLE TO DRAW BLOOD, BLOOD DRAW BY MAURO DEL ROSARIO VIA PICC LINE.
[2019-01-01] MEDS: DEXTROSE 50%-WATER 50 ML DISP.SYRIN IV PRN ×2 (22:32→23:44)
--- NOTE | 2019-01-01 22:35 | NUR ---
STAT BLOOD GLUCOSE LEVEL RECEIVED FROM LAB, GLUCOSE LEVEL 50, D50% IVP ADMINISTERED ORDERED.
--- NOTE | 2019-01-01 23:45 | NUR ---
BLOOD GLUCOSE LEVEL RECHECKED, STILL LOW 59, NO S/S OF HYPOGLYCEMIA, PT AWAKE. D50 IVP ADMINISTERED ORDERED. WILL CONTINUE TO MONITOR.
[2019-01-02] VITALS (72 sets, daily range): BP systolic 74–166; BP diastolic 32–94
[2019-01-02] MEDS: IPRATROPIUM NEB FS 0.5 MG/2.5 ML AMPUL.NEB NEB SCH ×7 (00:37→23:54)
[2019-01-02] MEDS: ACETYLCYSTEINE 10% SOLN 400 MG/4 ML VIAL NEB SCH ×4 (00:37→23:54)
[2019-01-02] MEDS: ALBUTEROL FS 2.5 MG/0.5 ML VIAL.NEB NEB SCH ×7 (00:37→23:54)
[2019-01-02] MEDS: BLOOD SUGAR DIAGNOSTIC 1 EACH STRIP IN SCH ×6 (00:58→21:23)
[2019-01-02] MEDS: LINEZOLID RTU BAG 600 MG in PREMIX 1 EA IV SCH ×2 (00:58→12:39)
[2019-01-02] MEDS: NYSTATIN TOP POWDER 15 GM BOTTLE TP SCH ×2 (01:56→16:01)
[2019-01-02] MEDS: METRONIDAZOLE 500MG/ NS 100ML 500 MG in PREMIX 1 EA IV SCH ×3 (03:54→20:23)
[2019-01-02 04:51] LABS: BASOPHILS % (AUTO) 0.2 % (0.0-2.0); EOSINOPHILS % (AUTO) 0.4 % (0.0-6.0); HEMATOCRIT 31 % (33-45); HEMOGLOBIN 10.4 g/dL (11.5-14.8); LYMPHOCYTES # (AUTO) 0.3 /CMM (0.8-4.8); LYMPHOCYTES % (AUTO) 1.3 % (20.0-44.0); MEAN CORPUSCULAR HGB CONC 34 g/dl (31.0-36.0); MEAN CORPUSCULAR VOLUME 90 fL (82-100); MONOCYTES # (AUTO) 0.1 /CMM (0.1-1.30); MONOCYTES % (AUTO) 0.5 % (2.0-12.0); NEUTROPHILS # (AUTO) 23.9 /CMM (1.8-8.9); NEUTROPHILS % (AUTO) 97.6 % (43.0-81.0); PLATELET COUNT (AUTO) 58 /CMM (150-450); RED BLOOD CELL COUNT(AUTO) 3.46 MIL/uL (4.0-5.2); WHITE BLOOD COUNT (AUTO) 24.4 K/uL (4.3-11.0)
[2019-01-02 04:57] LABS: CALCIUM, SERUM 7.5 mg/dL (8.5-10.1); CARBON DIOXIDE 20 mmol/L (21-32); CHLORIDE 104 mmol/L (98-107); CREATININE 0.9 mg/dL (0.6-1.3); GLUCOSE 66 mg/dL (74-106); MAGNESIUM 1.8 mg/dL (1.8-2.4); PHOSPHORUS 4.9 mg/dL (2.5-4.9); POTASSIUM 3.6 mmol/L (3.5-5.1); SODIUM SERUM 136 mmol/L (136-145); UREA NITROGEN, BLOOD 17 mg/dL (7-18)
[2019-01-02 06:04] LABS: BAND % (MANUAL) 5 % (0.0-5.0); LYMPHOCYTES % (MANUAL) 1 % (16-48); NEUTROPHILS % (MANUAL) 94 (42-76)
[2019-01-02] MEDS: METOCLOPRAMIDE HCL 10 MG/2 ML VIAL IV SCH ×3 (06:10→17:09)
--- NOTE | 2019-01-02 07:10 | NUR ---
RN INITIAL NOTES: Rec'd pt on bed, not in any distress, opens eyes. On MV via ETT, sating at 100%. On telemonitor, SR w/ HR 90bpm. Has CARLOS A PICC line w/ Levo drip x 2 mcg & LH G20 SL, IV lines patent & intact w/ no s/sx of infection/infiltration noted. Has GT connected to LIS w/ bilious output. Has FC on CBI, noted gibson UOP. Safety precaution in place w/ bed in lowest & locked position. Will continue to monitor & attend pt needs.
--- NOTE | 2019-01-02 07:25 | NUR ---
RT PATIENT REC'D INTUBATED ON [facility] WITH ORDERED SETTINGS IN CRITICAL CONDITION. VENT ALARMS CHECKED + AUDIBLE. CUFF PRESSURE CHECKED DISTRICT ADVISER. B/S DIM. SUCTIONED AIRWAY WITH SMALL AMT [employer] SECRETIONS. AMBU BAG AT HOB. Addendum: 01/03/19 at 0730 by LEXI THORPE RT Amended: Links added.
--- NOTE | 2019-01-02 08:43 | NUR ---
Pt seen & examined by Dr. Franco.
[2019-01-02] MEDS: ACETAMINOPHEN 650 MG/20.3 ML UDC GT SCH (09:00)
[2019-01-02] MEDS: LACTOBACILLUS RHAMNOSUS GG 1 EACH CAP.SPRINK PO SCH ×2 (09:00→16:35)
[2019-01-02] MEDS: ASCORBIC ACID 500 MG TABLET PO SCH (09:00)
[2019-01-02] MEDS: POTASSIUM CHLORIDE 20 MEQ POWDER PACKET GT SCH (09:00)
[2019-01-02] MEDS: PANTOPRAZOLE 40 MG/PACK PACK GT SCH ×2 (09:00→20:34)
[2019-01-02] MEDS: MULTIVITAMINS,THERAGRAN 1 UDTAB TABLET GT SCH (09:00)
[2019-01-02] MEDS: PROSOURCE / PROSTAT (PYXIS) 30 ML UDC GT SCH (09:00)
[2019-01-02] MEDS: CITRIC ACID/SODIUM CITRATE (BICITRA)15 ML UDC PO SCH ×4 (09:00→20:35)
[2019-01-02] MEDS: DEXTROSE 50%-WATER 50 ML DISP.SYRIN IV PRN ×4 (09:18→21:30)
[2019-01-02 09:50] LABS: ABG BASE EXCESS -7.7 mmol/L; ABG OXYGEN SATURATION 97.8 % (92.0-98.5); ABG PCO2 23.8 mmHg (35.0-45.0); ABG PH 7.427 (7.350-7.450); ABG PO2 125.2 mmHg (75.0-100.0); AaDO2 132.6 mmHg; COHb 0.1 % (0.5-1.5); MetHb 0.7 % (0.0-1.5); PEEP,BG 0 cm H2O; SITE, ABG Right Brachial; VT, ABG 500 mL
--- NOTE | 2019-01-02 10:00 | NUR ---
Dr. Beatty informed about pt's persistent hypoglycemia episode despite of D50 IVP given. Per MD, may start on D10 x 100cc/hr. February 0 PEEP.
[2019-01-02] MEDS: IV 10% DEXTROSE 1,000 ML IV PRN ×2 (10:04→23:18)
--- NOTE | 2019-01-02 11:00 | NUR ---
Pt seen & examined by Dr. Brantley.
--- NOTE | 2019-01-02 11:25 | NUR ---
Pt seen & examined by Romain DURHAM & updated about pt condition.
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
--- NOTE | 2019-01-02 18:49 | NUR ---
RN CLOSING NOTES: No significant changes noted w/in shift. Pt tolerated MV settings via ETT, sating at 100%. On telemonitor, remains SR. CARLOS A PICC line w/ D10 x 100 cc/hr & LH G20 SL, IV lines kept patent & intact w/ no s/sx of infection/infiltration noted. OGT still connected to LIS w/ bilious output. GT clamped. FC still on CBI x 300cc/hr, still w/ hematuria UOP. Safety precaution kept in place at all times w/ bed in lowest & locked position. Will endorse to PM RN for JACK.
[2019-01-02] MEDS ORDERED: DAPTOMYCIN 500 MG in IV NS 0.9% 50 ML IV SCH (20:00)
[2019-01-02] MEDS ORDERED: NOREPINEPHRINE 4 MG/4 ML AMPUL IV ONE (20:04)
[2019-01-02] MEDS: NOREPINEPHRINE 16 MG in IV D5W 500 ML IV PRN (20:11)
--- NOTE | 2019-01-02 20:11 | NUR ---
SBP NOTED IN 60-70'S, LEVO RESTARTED ORDERED.
--- NOTE | 2019-01-02 20:31 | NUR ---
DAPTOMYCIN DUE AT 1999 NOT AVAILABLE IN [facility]MN[facility], CHARGE NURSE ED AND NURSING SR. SOCIAL MEDIA & MOBILE MANAGER DANG LIND. SPOKE TO MARVA LEACH, WILL ADMIN IN THE AM WHEN PHARMACY WILL OPEN.
[2019-01-02] MEDS ORDERED: PYRIDOXINE HCL 50 MG TABLET GT SCH (21:00)
[2019-01-03] VITALS (76 sets, daily range): BP systolic 70–137; BP diastolic 22–98
[2019-01-03] MEDS: METOCLOPRAMIDE HCL 10 MG/2 ML VIAL IV SCH ×4 (00:38→17:28)
[2019-01-03] MEDS: BLOOD SUGAR DIAGNOSTIC 1 EACH STRIP IN SCH ×6 (01:13→21:49)
[2019-01-03] MEDS: NYSTATIN TOP POWDER 15 GM BOTTLE TP SCH ×2 (01:44→14:57)
[2019-01-03] MEDS: DEXTROSE 50%-WATER 50 ML DISP.SYRIN IV PRN ×2 (01:44→09:24)
--- NOTE | 2019-01-03 03:30 | NUR ---
LEVO RESTARTED, SBP 70'S.
[2019-01-03] MEDS: IPRATROPIUM NEB FS 0.5 MG/2.5 ML AMPUL.NEB NEB SCH ×6 (03:38→23:15)
[2019-01-03] MEDS: ALBUTEROL FS 2.5 MG/0.5 ML VIAL.NEB NEB SCH ×6 (03:38→23:16)
[2019-01-03] MEDS: METRONIDAZOLE 500MG/ NS 100ML 500 MG in PREMIX 1 EA IV SCH ×3 (03:40→19:52)
--- NOTE | 2019-01-03 04:00 | NUR ---
LEVO INCREASED TO 4MCG, SBP REMAINS IN 70'S
[2019-01-03 04:57] LABS: BASOPHILS % (AUTO) 0.1 % (0.0-2.0); EOSINOPHILS % (AUTO) 0.4 % (0.0-6.0); HEMATOCRIT 29 % (33-45); HEMOGLOBIN 9.5 g/dL (11.5-14.8); LYMPHOCYTES # (AUTO) 0.4 /CMM (0.8-4.8); LYMPHOCYTES % (AUTO) 1.3 % (20.0-44.0); MEAN CORPUSCULAR HGB CONC 33 g/dl (31.0-36.0); MEAN CORPUSCULAR VOLUME 92 fL (82-100); MONOCYTES # (AUTO) 0.2 /CMM (0.1-1.30); MONOCYTES % (AUTO) 0.6 % (2.0-12.0); NEUTROPHILS % (AUTO) 97.6 % (43.0-81.0); RED BLOOD CELL COUNT(AUTO) 3.17 MIL/uL (4.0-5.2); WHITE BLOOD COUNT (AUTO) 26.6 K/uL (4.3-11.0)
[2019-01-03 05:07] LABS: ALANINE AMINOTRANSFERASE 14 U/L (12-78); ALKALINE PHOSPHATASE 120 U/L (46-116); ASPARTATE AMINOTRANSFERASE 58 U/L (15-37); BILIRUBIN,TOTAL 1.9 mg/dL (0.2-1.0); CALCIUM, SERUM 7.1 mg/dL (8.5-10.1); CARBON DIOXIDE 18 mmol/L (21-32); CHLORIDE 104 mmol/L (98-107); GLUCOSE 139 mg/dL (74-106); MAGNESIUM 1.6 mg/dL (1.8-2.4); PHOSPHORUS 5.1 mg/dL (2.5-4.9); POTASSIUM 3.5 mmol/L (3.5-5.1); SODIUM SERUM 136 mmol/L (136-145); TOTAL PROTEIN, SERUM 3.8 g/dL (6.4-8.2); UREA NITROGEN, BLOOD 18 mg/dL (7-18)
[2019-01-03 05:35] LABS: PLATELET COUNT (AUTO) 37 /CMM (150-450)
[2019-01-03 05:51] LABS: BAND % (MANUAL) 25 % (0.0-5.0); LYMPHOCYTES % (MANUAL) 1 % (16-48); NEUTROPHILS % (MANUAL) 74 (42-76)
--- NOTE | 2019-01-03 06:33 | NUR ---
SPOKE TO MD REINOSO REGARDING PLATELETS LEVEL 37 TODAY, WITH NEW ORDER TO D/C PROTONIX, NO NEED TO TRANSFUSE PER .
--- NOTE | 2019-01-03 07:05 | NUR ---
ROCKET MOTOR TESTER INITIAL NOTES PT RECEIVED INTUBATED AND ON MECHANICALLY VENT. VENT SETTINGS CHECKED FOR ACCURACY (AC 12, TV 500, FIO2 40% PEEP 0). PT SATING AT 100% AND TOLERATING VENT SETTINGS WELL. PT CURRENTLY SR ON THE TELE MONITOR. RIGHT UPPER ARM PICC LINE NOTED TO BE C/D/I. NO REDNESS OR SIGNS OF INFILTRATION NOTED. PT RECEIVING LEVO DRIP AT 8MCG, AND NACL WITH ADDED 10% DEXTROSE AT 100ML/HR. PT TOLERATING INFUSION(S) WELL. THREE WAY CATHETER NOTED TO BE CONNECTED TO IRRIGATION. MILD HEMATURIA NOTED. CHERY NOTED TO BE PATENT AND INTACT. GTUBE NOTED TO BE PATENT AND INTACT. POSITIVE PLACEMENT VERIFIED VIA AUSCULTATION. OG TUBE NOTED TO LOW INTERMITTENT SUCTION. PLACEMENT VERIFIED VIA AUSCULTATION. BED IN LOW LOCKED POSITION, SIDE RIALS UP X3, CONTACT ISOLATION PRECAUTION OBSERVED. WILL CONTINUE TO MONITOR
[2019-01-03] MEDS: ACETYLCYSTEINE 10% SOLN 400 MG/4 ML VIAL NEB SCH ×3 (07:12→23:15)
--- NOTE | 2019-01-03 07:30 | NUR ---
RT PATIENT REC'D INTUBATED ON [facility] VENT WITH ORDERED SETTINGS IN CRITICAL CONDITION. VENT ALARMS CHECKED + AUDIBLE. CUFF PRESSURE CHECKED LOCK STITCH CHANNELER. B/S DIM. SUCTIONED AIRWAY WITH SMALL AMT RIOS SEMITHICK SECRETIONS. AMBU BAG AT HOB. Addendum: 01/03/19 at 0730 by LEXI THORPE RT Amended: Links added.
[2019-01-03] MEDS: POTASSIUM CHLORIDE 20 MEQ POWDER PACKET GT SCH (08:18)
[2019-01-03] MEDS: PROSOURCE / PROSTAT (PYXIS) 30 ML UDC GT SCH (08:18)
[2019-01-03] MEDS: LACTOBACILLUS RHAMNOSUS GG 1 EACH CAP.SPRINK PO SCH ×2 (08:19→16:08)
[2019-01-03] MEDS: CITRIC ACID/SODIUM CITRATE (BICITRA)15 ML UDC PO SCH ×4 (08:19→21:00)
[2019-01-03] MEDS: MULTIVITAMINS,THERAGRAN 1 UDTAB TABLET GT SCH (08:19)
[2019-01-03] MEDS: ACETAMINOPHEN 650 MG/20.3 ML UDC GT SCH (08:19)
[2019-01-03] MEDS: ASCORBIC ACID 500 MG TABLET PO SCH (08:19)
[2019-01-03 08:34] LABS: ABG BASE EXCESS -7.1 mmol/L; ABG OXYGEN SATURATION 98.5 % (92.0-98.5); ABG PH 7.411 (7.350-7.450); ABG PO2 146.6 mmHg (75.0-100.0); AaDO2 108.7 mmHg; COHb 0.3 % (0.5-1.5); MetHb 0.9 % (0.0-1.5); O2Hb 97.3 % (94.0-97.0); PEEP,BG 0 cm H2O; SITE, ABG Left Radial; VT, ABG 500 mL
[2019-01-03] MEDS: DAPTOMYCIN 500 MG in IV NS 0.9% 50 ML IV SCH (09:11)
[2019-01-03] MEDS: IV 10% DEXTROSE 1,000 ML IV PRN ×2 (09:12→21:49)
[2019-01-03] MEDS: Magnesium 1GM/D5W 100ML PREMIX 100 ML IV SCH ×2 (10:04→11:39)
--- NOTE | 2019-01-03 10:28 | NUR ---
AGRICULTURAL EDUCATION TEACHER NOTES: [facility]ATE [facility]MINISTRATION LAB CALLED IN REGARDS TO AMIKACIN TROUGH IT APPEARS TO BE PENDING SINCE YESTERDAY. FAX RECEIVED FROM [facility]. PT'S CURRENT AMIKACIN TROUGH IF 10.1. PHARMACIST MADE AWARE AND CONFIRMS THAT IT MAY STILL BE ADMINISTERED
[2019-01-03] MEDS: AMIKACIN 500 MG in IV D5W 100 ML IV SCH (11:05)
--- NOTE | 2019-01-03 13:15 | NUR ---
SW received a call from APS shed workers supervisor Cleo Young inquiring about what facility did pt. come from. Cleo informed SW that pt's case will be transferred to [facility] since pt. resides at [facility] in [place].
[2019-01-03] MEDS: ALBUMIN 25% 25 GM in PREMIX 1 EA IV SCH ×2 (16:08→21:48)
--- NOTE | 2019-01-03 18:00 | NUR ---
ICU/RN: Called Lupe carpenter to f/u family arrival at bedside to discuss POC. Multiple calls placed throughout the day by primary RN, no answer, voice mail left with call back number.
--- NOTE | 2019-01-03 18:43 | NUR ---
APPAREL MANAGER CLOSING NOTES PT REMAINS STABLE. ALL NEEDS ANTICIPATED FOR AND MET DURING SHIFT. ALL DUE MEDS GIVEN PT'S CONDITION PERMITS. PT REMAINS INTUBATED AND TOLERATING VENT SETTINGS WELL. CHERY CATHETER REMAINS PATENT AND INTACT AND IRRIGATING. PICC LINE REMAINS C/D/I. PT TOLERATING LEVO AT 8 MCG ALONG WITH NACL AND 10% DEXTROSE INFUSION AT 100NL/HR. GTUBE AND OG REMAINS PATENT AND INTACT. PT WAS REPOSITIONED AND TURNED PER HOSPITAL PROTOCOL. PRN AND WOUND CARE RENDERED ORDERED. SAFETY MEASURES REMAIN IN PLACE. SEVERAL ATTEMPTS MADE TO CONTACT PT'S GRANDDAUGHTER ZAKI IN REGARDS TO PT'S CURRENT PLAN OF CARE. VOICEMAIL LEFT. NO CALL BACK RECEIVED. MD RESENDIZ AWARE. WILL ENDORSE TO NIGHTSHIFT RN FOR JACK
--- NOTE | 2019-01-03 19:30 | NUR ---
INCUBATOR MACHINE OPERATOR INITIAL SHIFT NOTES RECEIVED PATIENT IN BED, OBTUNDED AT BASELINE. ORALLY INTUBATED, ETT 7.0, 23CM @ LIP LINE, AC 16, TV 500, FIO2 40%, NO PEEP, NO S/S OF RESPIRATORY DISTRESS. TELEMETRY MONITORING SHOWS SINUS RHYTHM, HR 95 BPM AT THIS TIME. OGT PATENT AND INTACT, CONNECTED TO LOW INTERMITTENT SUCTION, DRAINING COPIOUS AMOUNTS OF GREEN/YELLOW FLUID. MODERATE AMOUNT OF GREEN/YELLOW FLUID ALSO DRAINING FROM PATIENT'S MOUTH, SUCTIONED USING YANKAUER. GT PATENT AND INTACT, CLAMPED AT THIS TIME. CONTINUOUS BLADDER IRRIGATION VIA CHERY CATHETER, NOTED WITH SLIGHT HEMATURIA, CLOTS NOTED. HOB KEPT AT 35 DEGREES. BED IN LOWEST AND LOCKED POSITION, ISOLATION PRECAUTIONS OBSERVED. WILL CONTINUE TO CLOSELY MONITOR
[2019-01-03] MEDS: IV NS 0.9% 250 ML IV PRN (20:00)
--- NOTE | 2019-01-03 20:00 | NUR ---
ADMINISTRATIVE ASSISTANT FRONT DESK NOTES LEFT AND RIGHT EARS NOTED WITH PARTIAL THICKNESS LOSS. PHOTOGRAPHED AND DOCUMENTED PER PROTOCOL. WOUND CARE CONSULT ORDERED. SITE OFFLOADED WITH PILLOWS
[2019-01-03] MEDS: NOREPINEPHRINE 16 MG in IV D5W 500 ML IV PRN (20:02)
--- NOTE | 2019-01-03 20:16 | NUR ---
RECEIVED PT INTUBATED ON VENT, 7.0 ETT SECURED AT 23CM AT THE LIP. TOLERATING VENT SETTINGS. SX'D FOR MOD AMT OF THICK RIOS SECRETIONS. VENT ALARMS SET AND AUDIBLE. WILL CONTINUE TO MONITOR. Addendum: 01/03/19 at 2020 by NAHID LANDON RT Amended: Links added.
--- NOTE | 2019-01-03 22:15 | NUR ---
MICROPHONE OPERATOR NOTES - BLOOD SUGAR LEFT HAND GLUCOSE CHECK READING "LO". RECHECK ON RIGHT HAND, BLOOD GLUCOSE 36 MG/DL. CHARGE NURSE SANDY MADE AWARE. PATIENT'S EXTREMITIES NOTED TO BE COOL TO TOUCH AND CYANOTIC. BLOOD GLUCOSE CHECKED FROM PATIENT'S EAR, WITH READING OF 112 MG/DL. WILL CONTINUE TO CLOSELY MONITOR PATIENT
[2019-01-04] VITALS (105 sets, daily range): BP systolic 81–157; BP diastolic 34–87
[2019-01-04] MEDS: METOCLOPRAMIDE HCL 10 MG/2 ML VIAL IV SCH ×5 (00:45→23:32)
[2019-01-04] MEDS: BLOOD SUGAR DIAGNOSTIC 1 EACH STRIP IN SCH ×6 (00:46→21:15)
[2019-01-04] MEDS: NYSTATIN TOP POWDER 15 GM BOTTLE TP SCH ×2 (01:56→14:05)
[2019-01-04] MEDS: IPRATROPIUM NEB FS 0.5 MG/2.5 ML AMPUL.NEB NEB SCH ×6 (03:32→23:44)
[2019-01-04] MEDS: ALBUTEROL FS 2.5 MG/0.5 ML VIAL.NEB NEB SCH ×6 (03:32→23:44)
--- NOTE | 2019-01-04 04:00 | NUR ---
HOUSEHOLD APPLIANCES SERVICE TECHNICIAN NOTES BED BATH RENDERED, ALL WOUND CARE DONE PRESCRIBED, PATIENT TOLERATED WELL. WILL CONTINUE TO CLOSELY MONITOR
[2019-01-04] MEDS: METRONIDAZOLE 500MG/ NS 100ML 500 MG in PREMIX 1 EA IV SCH ×3 (04:49→19:46)
[2019-01-04 04:51] LABS: BASOPHILS % (AUTO) 0.2 % (0.0-2.0); HEMATOCRIT 26 % (33-45); HEMOGLOBIN 8.6 g/dL (11.5-14.8); LYMPHOCYTES # (AUTO) 0.4 /CMM (0.8-4.8); LYMPHOCYTES % (AUTO) 1.8 % (20.0-44.0); MEAN CORPUSCULAR HGB CONC 33 g/dl (31.0-36.0); MEAN CORPUSCULAR VOLUME 93 fL (82-100); MONOCYTES # (AUTO) 0.1 /CMM (0.1-1.30); MONOCYTES % (AUTO) 0.6 % (2.0-12.0); NEUTROPHILS # (AUTO) 19.4 /CMM (1.8-8.9); NEUTROPHILS % (AUTO) 96.4 % (43.0-81.0); RED BLOOD CELL COUNT(AUTO) 2.84 MIL/uL (4.0-5.2); WHITE BLOOD COUNT (AUTO) 20.1 K/uL (4.3-11.0)
[2019-01-04 05:11] LABS: PLATELET COUNT (AUTO) 19 /CMM (150-450)
[2019-01-04 05:13] LABS: ALANINE AMINOTRANSFERASE 17 U/L (12-78); ALBUMIN 1.9 g/dL (3.4-5.0); ALKALINE PHOSPHATASE 107 U/L (46-116); ASPARTATE AMINOTRANSFERASE 57 U/L (15-37); BILIRUBIN,TOTAL 2.7 mg/dL (0.2-1.0); CALCIUM, SERUM 7.3 mg/dL (8.5-10.1); CARBON DIOXIDE 20 mmol/L (21-32); CHLORIDE 100 mmol/L (98-107); CREATININE 0.9 mg/dL (0.6-1.3); GLUCOSE 132 mg/dL (74-106); MAGNESIUM 1.8 mg/dL (1.8-2.4); POTASSIUM 3.3 mmol/L (3.5-5.1); SODIUM SERUM 132 mmol/L (136-145); TOTAL PROTEIN, SERUM 4.2 g/dL (6.4-8.2); UREA NITROGEN, BLOOD 17 mg/dL (7-18)
--- NOTE | 2019-01-04 05:15 | NUR ---
NOTICED A SMALL WOUND ABOVE THE LIP. NOTIFIED RN REGARDING THE WOUND.
[2019-01-04 05:43] LABS: LYMPHOCYTES % (MANUAL) 2 % (16-48); MONOCYTES % (MANUAL) 2 % (0-11.0); NEUTROPHILS % (MANUAL) 96 (42-76)
[2019-01-04 05:51] LABS: D-DIMER 4.6 mg/L(FEU (0.17-0.50)
[2019-01-04] MEDS: ALBUMIN 25% 25 GM in PREMIX 1 EA IV SCH (05:55)
--- NOTE | 2019-01-04 06:30 | NUR ---
ENVIRONMENTAL CONSULTANT NOTES - CRITICAL LABS RECEIVED CALL FROM LAB REGARDING CRITICAL RESULTS, PLATELET LEVEL 19, AND PTT 88.8. RESULTS RELAYED TO DR STUART, WITH ORDER TO TRANSFUSE 1 UNIT OF PLATELETS, AND TO NOTIFY DR CABRERA WHEN SHE GETS IN. ORDERS READ BACK FOR CLARIFICATION. WILL CARRY OUT ALL NEW ORDERS
--- NOTE | 2019-01-04 06:59 | NUR ---
INFORMATICS APPLICATION ANALYST CLOSING SHIFT NOTES PATIENT RESTING IN BED, APPEARS COMFORTABLE, NO FACIAL GRIMACE NOTED. THROUGHOUT SHIFT, ABLE TO TITRATE LEVOPHED DRIP DOWN BY 2 TO 6MCG/MIN. REMAINS ORALLY INTUBATED WHILE ON MECHANICAL VENTILATION. PENDING 1 UNIT OF PLATELETS TO BE TRANSFUSED. BLOOD SUGAR CHECKED ON EARS DUE TO POOR PERIPHERAL CIRCULATION, WITH RESULTS >100MG/DL. WILL ENDORSE THE PATIENT TO THE AM SHIFT NURSE FOR CONTINUITY OF CARE
--- NOTE | 2019-01-04 07:12 | NUR ---
RN INITIAL NOTES: Rec'd pt on bed, not in any distress, opens eyes, obtunded. On MV via ETT, sating at 100%. On telemonitor, SR w/ HR 86bpm. Has CARLOS A PICC line w/ Levo drip x 6 mcg & D10 x 100c/hr infusing well. IV line patent & intact w/ no s/sx of infection/infiltration noted. Has OGT connected to LIS w/ bilious output. GT clamped at this time. Has FC on CBI at 300cc/hr, noted hematuia UOP. Safety precaution in place w/ bed in lowest & locked position. Will continue to monitor & attend pt needs.
--- NOTE | 2019-01-04 07:42 | NUR ---
WOUND CARE CONSULT: RECEIVED CONSULT FOR BILATERAL EARS. RT EAR NOTED TO HAVE DARK BROWN DISCOLORATION MEASURING 3CM X 1CM, NO DRAINAGE AND LEFT EAR NOTED TO HAVE DARK BROWN DISCOLORED AREA AT TOP OF EAR MEASURING 1CM X 1CM AND DISTALLY DARK BROWN AREA MEASURING 3CM X 2CM, NO DRAINAGE. DEFER TO PLASTIC SURGEON CURRENTLY FOLLOWING PT. WILL SEE PRN.
[2019-01-04] MEDS: ACETYLCYSTEINE 10% SOLN 400 MG/4 ML VIAL NEB SCH ×3 (08:16→23:44)
[2019-01-04] MEDS: IV 10% DEXTROSE 1,000 ML IV PRN ×2 (08:18→17:40)
[2019-01-04] MEDS: ASCORBIC ACID 500 MG TABLET PO SCH (09:00)
[2019-01-04] MEDS: ACETAMINOPHEN 650 MG/20.3 ML UDC GT SCH (09:00)
[2019-01-04] MEDS: LACTOBACILLUS RHAMNOSUS GG 1 EACH CAP.SPRINK PO SCH ×2 (09:00→17:00)
[2019-01-04] MEDS: POTASSIUM CHLORIDE 20 MEQ POWDER PACKET GT SCH (09:00)
[2019-01-04] MEDS: CITRIC ACID/SODIUM CITRATE (BICITRA)15 ML UDC PO SCH ×4 (09:00→21:00)
[2019-01-04] MEDS: MULTIVITAMINS,THERAGRAN 1 UDTAB TABLET GT SCH (09:00)
[2019-01-04] MEDS: PROSOURCE / PROSTAT (PYXIS) 30 ML UDC GT SCH (09:00)
[2019-01-04] MEDS ORDERED: POTASSIUM CL. PREMIX PERIPHER. 50 ML IV SCH (09:30)
--- NOTE | 2019-01-04 09:30 | NUR ---
Pt seen & examined by / Jaci.
--- NOTE | 2019-01-04 09:43 | NUR ---
Rec'd call from Lupe Zamarripa (DEBBIE, grand daughter), stated that her brothers Parmajit & Brant still having issues w/ the plane ticket & not sure when they'll be coming here. Lupe stated that on January 12 even if her brothers are not here will proceed to comfort care. For now, Lupe wishes to continue the treatment & care that the pt is receiving. Addendum: 01/04/19 at 1153 by LAVONNE MARQUEZ RN Dr. Beatty made aware regarding the above statement.
[2019-01-04] MEDS: DAPTOMYCIN 500 MG in IV NS 0.9% 50 ML IV SCH (09:50)
[2019-01-04] MEDS: INSULIN REGULAR, HUMAN 100 UNIT/ML 3 ML VIAL SQ PRN ×3 (10:08→17:49)
--- NOTE | 2019-01-04 11:00 | NUR ---
S/P BT of 1 unit Platelet as ordered. Pt tolerated the transfusion w/o BT reaction noted.
--- NOTE | 2019-01-04 11:17 | NUR ---
SW received a voicemail message from pt's grand daughter Lupe Zamarripa inquiring about power of laborer cheesemaking. SW returned her call and left her a voicemail stating that since pt. is incapacitated, she would have to file a conservatorship with the [place]. SW left her a message with contact number for legal office administratorjean Sandhu .
[2019-01-04] MEDS: FUROSEMIDE 20 MG/2 ML VIAL IV SCH (17:26)
--- NOTE | 2019-01-04 18:33 | NUR ---
RN CLOSING NOTES: No significant changes noted w/in shift. Pt tolerated MV settings via ETT, sating at 100%. On telemonitor, remains SR. CARLOS A PICC line w/ D10 x 100 cc/hr, IV lines kept patent & intact w/ no s/sx of infection/infiltration noted. OGT still connected to LIS w/ bilious output. GT clamped. FC still on CBI x 300cc/hr, still w/ hematuria UOP. Safety precaution kept in place at all times w/ bed in lowest & locked position. Will endorse to PM RN for JACK.
--- NOTE | 2019-01-04 18:35 | NUR ---
RT END OF THE SHIFT REPORT, PT. 78 YEARS OLD FEMALE REC. IN AM 0700 PT. ORALLY INTUBATED ETT # 7.0 @23 CM LIP LINE ON VENT WITH NOTED SETTINGS, NO CHANGES T/O DAY AND PT. REMAIN STABLE, B/S BILATERALLY RHONCHI, SUX'D FOR MINIMAL/AMT AMT THICK YELLOW SECRETIONS, TX'S GIVEN INLINE, NO ADVERSE REACTION NOTED. BUSINESS PROJECT MANAGER DONE, EQUAL CHEST RISE NOTED, HME CHANGED, VENT PLUGGED INTO RED OUT LET. AMBU BAG REMAIN AT THE BEDSIDE. REPORT WILL PASS TO PM SHIFT. Addendum: 01/04/19 at 1837 by KARL MORA RT Amended: Links added.
--- NOTE | 2019-01-04 19:15 | NUR ---
RN INITIAL NOTES RECEIVED PT IN BED, OPENS EYES, OBTUNDED. S/P OFF LEVOPHED SINCE 10 AM. NOTED WITH ETT ON MECH VENT, SPO2 100% ON TELE. IN NO SIGNS OF PAIN. OGT ON LIS. HOB ELEVATED. GTUBE INTACT AND CLAMPED. WITH ONGOING IVF D10 AT 100 ML/HR INFUSING WELL ON CARLOS A PICC, C/D/I. F/C INTACT AND IN PLACED, ON CONT BLADDER IRRIGATION AT 300 ML/HR, NOTED WITH URINE WITH SEDIMENTS AND MIN HEMATURIA. SAFETY MEASURES IN PLACED.WILL CONT TO MONITOR PT
--- NOTE | 2019-01-04 20:17 | NUR ---
RECEIVED PT INTUBATED ON VENT, 7.0 ETT SECURED AT 23CM AT THE LIP. TOLERATING VENT SETTINGS. SX'D FOR MOD AMT OF THICK RIOS SECRETIONS. VENT ALARMS SET AND AUDIBLE. WILL CONTINUE TO MONITOR. Addendum: 01/04/19 at 2018 by NAHID LANDON RT Amended: Links added.
[2019-01-04] MEDS: AMIKACIN 500 MG in IV D5W 100 ML IV SCH (20:50)
[2019-01-04] MEDS: IV NS 0.9% 250 ML IV PRN (20:51)
[2019-01-04] MEDS: NOREPINEPHRINE 16 MG in IV D5W 500 ML IV PRN (21:37)
[2019-01-05] VITALS (121 sets, daily range): BP systolic 59–197; BP diastolic 15–115
[2019-01-05] MEDS: BLOOD SUGAR DIAGNOSTIC 1 EACH STRIP IN SCH ×6 (02:11→20:49)
[2019-01-05] MEDS: NYSTATIN TOP POWDER 15 GM BOTTLE TP SCH ×2 (02:12→14:10)
[2019-01-05] MEDS: ALBUTEROL FS 2.5 MG/0.5 ML VIAL.NEB NEB SCH ×6 (03:15→22:53)
[2019-01-05] MEDS: IPRATROPIUM NEB FS 0.5 MG/2.5 ML AMPUL.NEB NEB SCH ×6 (03:15→22:53)
[2019-01-05] MEDS: IV 10% DEXTROSE 1,000 ML IV PRN (03:50)
[2019-01-05] MEDS: METRONIDAZOLE 500MG/ NS 100ML 500 MG in PREMIX 1 EA IV SCH ×3 (03:50→20:00)
[2019-01-05 04:31] LABS: CALCIUM, SERUM 7.3 mg/dL (8.5-10.1); CARBON DIOXIDE 19 mmol/L (21-32); CREATININE 0.9 mg/dL (0.6-1.3); UREA NITROGEN, BLOOD 15 mg/dL (7-18)
[2019-01-05 04:41] LABS: GLUCOSE 115 mg/dL (74-106)
[2019-01-05 04:45] LABS: CHLORIDE 98 mmol/L (98-107); SODIUM SERUM 131 mmol/L (136-145)
[2019-01-05 04:52] LABS: POTASSIUM 2.8 mmol/L (3.5-5.1)
[2019-01-05] MEDS: METOCLOPRAMIDE HCL 10 MG/2 ML VIAL IV SCH ×3 (05:17→17:03)
--- NOTE | 2019-01-05 05:41 | NUR ---
ANCHOR FAST CHANGED. NOTICED WOUND ABOVE THE LIP. RN NOTIFIED. Addendum: 01/05/19 at 0543 by NAHDI LANDON RT Amended: Links added.
--- NOTE | 2019-01-05 06:00 | NUR ---
RN NOTES NOTIFIED MD SONG RE: CLARISA LEVEL 2.8, AWAITING FOR ORDERS FROM
[2019-01-05] MEDS: POTASSIUM CL. PREMIX PERIPHER. 50 ML IV SCH ×7 (06:55→14:10)
--- NOTE | 2019-01-05 07:12 | NUR ---
RN INITIAL NOTES: Rec'd pt on bed, not in any distress, opens eyes, obtunded. On MV via ETT, sating at 100%. On telemonitor, SR w/ HR 89bpm. Has CARLOS A PICC line w/ Levo drip x 1 mcg & D10 x 100c/hr infusing well. IV line patent & intact w/ no s/sx of infection/infiltration noted. Has OGT connected to LIS w/ bilious output. GT clamped at this time. Has FC on CBI at 300cc/hr, noted hematuia UOP. Safety precaution in place w/ bed in lowest & locked position. Will continue to monitor & attend pt needs.
[2019-01-05] MEDS: ACETYLCYSTEINE 10% SOLN 400 MG/4 ML VIAL NEB SCH ×3 (07:32→22:53)
--- NOTE | 2019-01-05 07:35 | NUR ---
RT PATIENT REC'D INTUBATED ON [facility] VENT WITH ORDERED SETTINGS IN CRITICAL CONDITION. VENT ALARMS CHECKED + AUDIBLE. CUFF PRESSURE CHECKED ELDERLY COMPANION. B/S DIM. SUCTIONED AIRWAY WITH SMALL AMT RIOS SEMITHICK SECRETIONS. AMBU BAG AT HOB. Addendum: 01/05/19 at 1752 by LEXI THORPE RT Amended: Links added.
[2019-01-05 08:19] LABS: ABG BASE EXCESS -8.7 mmol/L; ABG OXYGEN SATURATION 98.5 % (92.0-98.5); ABG PCO2 29.6 mmHg (35.0-45.0); ABG PH 7.349 (7.350-7.450); ABG PO2 147.5 mmHg (75.0-100.0); AaDO2 103.7 mmHg; COHb 0.4 % (0.5-1.5); MetHb 0.9 % (0.0-1.5); O2Hb 97.2 % (94.0-97.0); SITE, ABG Left Radial
[2019-01-05 08:35] LABS: BASOPHILS % (AUTO) 0.1 % (0.0-2.0); EOSINOPHILS % (AUTO) 0.7 % (0.0-6.0); HEMATOCRIT 26 % (33-45); HEMOGLOBIN 8.5 g/dL (11.5-14.8); LYMPHOCYTES # (AUTO) 0.3 /CMM (0.8-4.8); LYMPHOCYTES % (AUTO) 1.8 % (20.0-44.0); MEAN CORPUSCULAR HGB CONC 33 g/dl (31.0-36.0); MEAN CORPUSCULAR VOLUME 92 fL (82-100); MONOCYTES # (AUTO) 0.1 /CMM (0.1-1.30); MONOCYTES % (AUTO) 0.3 % (2.0-12.0); NEUTROPHILS # (AUTO) 15.7 /CMM (1.8-8.9); NEUTROPHILS % (AUTO) 97.1 % (43.0-81.0); RED BLOOD CELL COUNT(AUTO) 2.83 MIL/uL (4.0-5.2); WHITE BLOOD COUNT (AUTO) 16.1 K/uL (4.3-11.0)
[2019-01-05 08:41] LABS: PLATELET COUNT (AUTO) 17 /CMM (150-450)
[2019-01-05] MEDS: MULTIVITAMINS,THERAGRAN 1 UDTAB TABLET GT SCH (08:42)
[2019-01-05] MEDS: PROSOURCE / PROSTAT (PYXIS) 30 ML UDC GT SCH (08:42)
[2019-01-05] MEDS: POTASSIUM CHLORIDE 20 MEQ POWDER PACKET GT SCH (08:42)
[2019-01-05] MEDS: ACETAMINOPHEN 650 MG/20.3 ML UDC GT SCH (08:42)
[2019-01-05] MEDS: ASCORBIC ACID 500 MG TABLET PO SCH (08:55)
[2019-01-05] MEDS: LACTOBACILLUS RHAMNOSUS GG 1 EACH CAP.SPRINK PO SCH ×2 (08:55→16:44)
[2019-01-05] MEDS: CITRIC ACID/SODIUM CITRATE (BICITRA)15 ML UDC PO SCH ×4 (08:55→20:13)
[2019-01-05 09:06] LABS: BAND % (MANUAL) 4 % (0.0-5.0); LYMPHOCYTES % (MANUAL) 1 % (16-48); MONOCYTES % (MANUAL) 1 % (0-11.0); NEUTROPHILS % (MANUAL) 94 (42-76)
[2019-01-05] MEDS: DAPTOMYCIN 500 MG in IV NS 0.9% 50 ML IV SCH (09:09)
[2019-01-05] MEDS: FUROSEMIDE 20 MG/2 ML VIAL IV SCH ×2 (09:09→17:03)
[2019-01-05] MEDS ORDERED: POTASSIUM CHLORIDE 20 MEQ POWDER PACKET GT ONE (09:30)
[2019-01-05] MEDS: INSULIN REGULAR, HUMAN 100 UNIT/ML 3 ML VIAL SQ PRN ×4 (09:50→20:50)
--- NOTE | 2019-01-05 10:15 | NUR ---
Dr. Gary made aware re: platelet of 17 (s/p 1 unit transfusion of platelet yesterday), still w/ hematuria. Per , to just monitor for now. Addendum: 01/05/19 at 1057 by LAVONNE MARQUEZ RN Addendum: Correction on above notes. Per Dr. Gary to transfuse 1 unit of Platelet.
--- NOTE | 2019-01-05 12:30 | NUR ---
Rec'd conference call from Lupe Zamarripa (grand daughter) & Brant (son), regarding pt's POC. RN updated them about pt's current condition & status. Per Brant, he will come on January 11 to see pt & do comfort care. For now just continue the care & treatment the pt is receiving & if at any point pt deteriorates then just let her go the natural way. As per Lupe, if Brant will not be able to come on January 11, then will proceed w/ comfort care on January 12. MARVA Gibson & CM made aware that RN received conference call from Lupe & Brant.
[2019-01-05] MEDS: Sodium Chloride 154 MEQ in IV 10% DEXTROSE 1,000 ML IV PRN (12:35)
[2019-01-05] MEDS: DEXTROSE 50%-WATER 50 ML DISP.SYRIN IV PRN (13:31)
--- NOTE | 2019-01-05 19:33 | NUR ---
PT RECEIVED ORALLY INTUBATED WITH 7.0 ETT SECURED@ 23 CM ON MECHANICAL VENT W/ NOTED SETTINGS PER MD ORDER. VENT ALARMS CHECKED, VENT PLUGGED INTO RED OUTLET, AMBU BAG AT BEDSIDE. PT SUCTIONED AND LAVAGED PRN. BREATHING TX GIVEN PER MD ORDER, NO ADVERSE REACTION NOTED. ETT PATENT AND SECURED. PROJECT MANAGER SENIOR CUFF PRESSURE NOTED. NO RESPIRATORY DISTRESS NOTED AT THIS TIME . WILL CONTINUE TO MONITOR THE PT.
[2019-01-05] MEDS ORDERED: PHYTONADIONE INJ 10 MG/1 ML AMPUL SQ ONE (20:00)
[2019-01-05 20:22] LABS: URINE SODIUM, RANDOM 81 mmol/l (40-220)
[2019-01-05 20:36] LABS: OSMOLALITY,URINE 231 mOS/kg (340-1090)
[2019-01-06] VITALS (113 sets, daily range): BP systolic 28–160; BP diastolic 20–136
[2019-01-06] MEDS: METOCLOPRAMIDE HCL 10 MG/2 ML VIAL IV SCH ×5 (00:38→23:12)
[2019-01-06] MEDS: BLOOD SUGAR DIAGNOSTIC 1 EACH STRIP IN SCH ×6 (00:49→21:03)
[2019-01-06] MEDS: DEXTROSE 50%-WATER 50 ML DISP.SYRIN IV PRN ×3 (00:50→14:06)
[2019-01-06] MEDS: NYSTATIN TOP POWDER 15 GM BOTTLE TP SCH ×2 (01:43→14:33)
[2019-01-06] MEDS: Sodium Chloride 154 MEQ in IV 10% DEXTROSE 1,000 ML IV PRN (02:04)
[2019-01-06] MEDS: ALBUTEROL FS 2.5 MG/0.5 ML VIAL.NEB NEB SCH ×7 (03:03→23:24)
[2019-01-06] MEDS: IPRATROPIUM NEB FS 0.5 MG/2.5 ML AMPUL.NEB NEB SCH ×6 (03:03→23:24)
[2019-01-06] MEDS: METRONIDAZOLE 500MG/ NS 100ML 500 MG in PREMIX 1 EA IV SCH ×3 (03:38→20:30)
[2019-01-06 04:52] LABS: BASOPHILS % (AUTO) 0.1 % (0.0-2.0); EOSINOPHILS % (AUTO) 0.1 % (0.0-6.0); HEMATOCRIT 25 % (33-45); HEMOGLOBIN 8.1 g/dL (11.5-14.8); LYMPHOCYTES # (AUTO) 0.1 /CMM (0.8-4.8); LYMPHOCYTES % (AUTO) 0.7 % (20.0-44.0); MEAN CORPUSCULAR HGB CONC 32 g/dl (31.0-36.0); MEAN CORPUSCULAR VOLUME 94 fL (82-100); MONOCYTES # (AUTO) 0.1 /CMM (0.1-1.30); MONOCYTES % (AUTO) 0.5 % (2.0-12.0); NEUTROPHILS # (AUTO) 16.9 /CMM (1.8-8.9); NEUTROPHILS % (AUTO) 98.6 % (43.0-81.0); RED BLOOD CELL COUNT(AUTO) 2.67 MIL/uL (4.0-5.2); WHITE BLOOD COUNT (AUTO) 17.2 K/uL (4.3-11.0)
[2019-01-06 05:12] LABS: CALCIUM, SERUM 6.9 mg/dL (8.5-10.1); CARBON DIOXIDE 15 mmol/L (21-32); CHLORIDE 99 mmol/L (98-107); CREATININE 1.1 mg/dL (0.6-1.3); GLUCOSE 103 mg/dL (74-106); MAGNESIUM 1.5 mg/dL (1.8-2.4); PHOSPHORUS 5.7 mg/dL (2.5-4.9); SODIUM SERUM 131 mmol/L (136-145); UREA NITROGEN, BLOOD 16 mg/dL (7-18)
[2019-01-06] MEDS: NOREPINEPHRINE 16 MG in IV D5W 500 ML IV PRN ×2 (05:39→17:18)
[2019-01-06 06:16] LABS: PLATELET COUNT (AUTO) 18 /CMM (150-450)
[2019-01-06 06:18] LABS: BAND % (MANUAL) 23 % (0.0-5.0); MONOCYTES % (MANUAL) 1 % (0-11.0); NEUTROPHILS % (MANUAL) 76 (42-76)
[2019-01-06] MEDS: ACETYLCYSTEINE 10% SOLN 400 MG/4 ML VIAL NEB SCH ×3 (07:34→23:24)
[2019-01-06 07:59] LABS: D-DIMER 23.4 mg/L(FEU (0.17-0.50)
[2019-01-06] MEDS: POTASSIUM CHLORIDE 20 MEQ POWDER PACKET GT SCH (08:03)
[2019-01-06] MEDS: PROSOURCE / PROSTAT (PYXIS) 30 ML UDC GT SCH (08:03)
[2019-01-06] MEDS: FUROSEMIDE 20 MG/2 ML VIAL IV SCH ×2 (08:03→16:32)
[2019-01-06] MEDS: MULTIVITAMINS,THERAGRAN 1 UDTAB TABLET GT SCH (08:04)
[2019-01-06] MEDS: ACETAMINOPHEN 650 MG/20.3 ML UDC GT SCH (08:04)
[2019-01-06] MEDS: CITRIC ACID/SODIUM CITRATE (BICITRA)15 ML UDC PO SCH ×4 (08:04→20:42)
[2019-01-06] MEDS: ASCORBIC ACID 500 MG TABLET PO SCH (08:04)
[2019-01-06] MEDS: LACTOBACILLUS RHAMNOSUS GG 1 EACH CAP.SPRINK PO SCH ×2 (08:04→16:28)
[2019-01-06] MEDS: DAPTOMYCIN 500 MG in IV NS 0.9% 50 ML IV SCH (08:21)
--- NOTE | 2019-01-06 08:31 | NUR ---
received pt from shift nurse manager, obtunded, ST, receiving levo at 22mcg and D10, on the vent, lungs congested, anasarca, NPO, NG tube to ILS, GT clamped, 3 way f/c irrigation due to hematuria, v/s stable, no pain, pt turned and repositioned, possible comfort measures today.
[2019-01-06 09:57] LABS: ABG BASE EXCESS -15.1 mmol/L; ABG PCO2 29.3 mmHg (35.0-45.0); AaDO2 150.5 mmHg; COHb 0.5 % (0.5-1.5); MetHb 0.7 % (0.0-1.5); O2Hb 95.8 % (94.0-97.0); SITE, ABG Right Radial; VENT MODE, BG AC 16 500 40% +0
--- NOTE | 2019-01-06 11:07 | NUR ---
HOLLIE received a call from CHAPITO Moore requesting for HOLLIE to schedule a family meeting with Dr. Marques, CHAPITO Moore and MARVA Yates for tomorrow at 10:30AM. HOLLIE contacted pt's grand daughter Lupe Zamarripa and left her a voicemail message informing her about the meeting and requested a call back. Addendum: 01/06/19 at 1111 by GUNNER BROWNE SW received a call back from pt's grand daughter Lupe Zamarripa. Family meeting has been confirmed for 10:30AM tomorrow 01/07/19. Addendum: 01/06/19 at 1120 by GUNNER BROWNE HOLLIE received a call back from pt' s grand daughter Lupe Zamarripa stating, " I don't see the point of me coming to the hospital when Paramjit and I are coming on Thursday." She further stated that , " I am not making any decisions regarding comfort measures." She informed SW that the doctor can call her on the phone. HOLLIE contacted CHAPITO Moore and informed him about the aforementioned conversation.
[2019-01-06] MEDS: Magnesium 1GM/D5W 100ML PREMIX 100 ML IV SCH ×2 (11:53→13:12)
--- NOTE | 2019-01-06 12:46 | NUR ---
HOLLIE received a call from pt's son Brant Cui from [place] informing SW that he does not want pt's grand daughter Lupe Zamarripa making any decisions. He states that he will be the decision maker and he is coming to [place] from [place] at 11AM and will coming to the hospital from [facility]. HOLLIE called ICU JOSIANE Walls and informed him of this information.
[2019-01-06] MEDS ORDERED: MISCELLANEOUS MED 1 EA EA XX ONE (15:00)
[2019-01-06] MEDS ORDERED: SODIUM ACETATE IV PRN (15:00)
[2019-01-06] MEDS ORDERED: DEXTROSE IV PRN (15:00)
[2019-01-06] MEDS ORDERED: MISCELLANEOUS MED 1 EA EA XX PRN (15:00)
--- NOTE | 2019-01-06 16:11 | NUR ---
pt is obtunded, ST, receiving levo at 34mcg, good urine output, still hematuria, OG to ILS, v/s stable, no pain, pt cleaned, changed and repositioned q2hrs.
[2019-01-06] MEDS ORDERED: ACETAMINOPHEN 325 MG TABLET PO ONE (19:00)
[2019-01-06] MEDS ORDERED: methylPREDNISolone SOD SUCC 125 MG/2ML VIAL IV ONE ×2 (19:00→22:00)
[2019-01-06] MEDS ORDERED: AMIKACIN 500 MG in IV D5W 100 ML IV SCH (20:00)
--- NOTE | 2019-01-06 20:35 | NUR ---
SUCCESS COACH NOTE SPOKE WITH PHARMACY AND SAID TO GIVE AMIKACIN IV NOW WITH TROUGH OF 11.2. WILL GIVE. WILL MONITOR.
[2019-01-06] MEDS ORDERED: ACETAMINOPHEN 650 MG/SUPP.RECT RC ONE (22:00)
--- NOTE | 2019-01-06 23:08 | NUR ---
CERTIFIED CAREGIVER NOTE UNABLE TO READ BP ON PT. SPOKE WITH HIGHWAY ENGINEERING TEACHER TO START NEOSYNEPRINE TO INCREASE BP. ORDERS NOTED AND CARRIED OUT.
[2019-01-06] MEDS ORDERED: PHENYLEPHRINE 10 MG/ML VIAL ONE (23:10)
[2019-01-06] MEDS: PHENYLEPHRINE 80 MG in IV D5W 250 ML IV PRN (23:15)
[2019-01-07] VITALS: BP 90/72
[2019-01-07 00:15] VITALS: BP 97/28
[2019-01-07] MEDS: NOREPINEPHRINE 16 MG in IV D5W 500 ML IV PRN (00:21)
[2019-01-07 00:31] VITALS: BP 111/22
--- NOTE | 2019-01-07 02:45 | NUR ---
CREDIT AUTHORIZER NOTE WENT TO CHECK PATIENT. CESSATION OF BREATHING NOTED. PULSE NOT APPRECIATED. CHARGE NURSE AT BEDSIDE AND PRONOUNCED THE PT. ALL TREATMENT DISCONTINUED. POST MORTEM CARE RENDERED 0124-LEFT MESSAGE TO YARELY DYKES. 0127- NOTIFIED LEGAL ARBITRATOR . NOTIFIED ADMITTING. SPOKE WITH JEROD. NOTIFIED NURSING TOBACCO WETTER. 0132- RECIEVED CALL BACK FROM YARELY DYKES AND NOTIFIED OF PATIENT'S PASSING. 0145- SPOKE WITH JACEK FROM [facility] WITH REFERRAL # [id number]. 0240- SPOKE WITH SON RENE FROM [place] NOTIFYING OF MOTHER'S PASSING. RENE STATED HE DID NOT WANT YARELY DYKES MAKING ANYMORE DECISIONS. HE SAID HE WILL ARRIVE THURSDAY MORNING NEXT WEEK TO TAKE CARE OF PT'S SERVICES.
--- NOTE | 2019-01-10 21:57 | NUR ---
LATE ENTRY PRONOUNCEMENT OF ON 01/07/2019 AT 0120. PT. CODE STATUS IS "DO NOT RESUSCITATE". ON ASSESSMENT PT. IS UNRESPONSIVE TO ANY FORM OF STIMULI. PUPILS ARE FIXED AND DILATED.PT. IS APNEIC ON AUSCULTATION. RESPIRATIONS =0.EKG ASYSTOLE X2 LEADS. HEART SOUNDS ABSENT ON AUSCULTATION. PERIPHERAL PULSES ARE ABSENT. NO SIGNS OF LIFE.PT. PRONOUNCED . BY:SANDY JOSHUA/CLAUDETTEN.
== END 2019-01-07 01:20 | disposition expired | DRG 710 ==
LOC: ER 15:24 → TELE 18:29 → TELE1 12-21 01:52 → TELE-TD 12-21 02:37 → ICU 12-22 13:30
PROVIDERS: ADMIT Internal Medicine; ATTEND Registered Nurse
PROC: 02HV33Z Insertion of Infusion Device into Superior Vena Cava, Percutaneous Approach (ICD-10-PCS; 2018-12-22)
PROC: B548ZZA Ultrasonography of Superior Vena Cava, Guidance (ICD-10-PCS; 2018-12-22)
PROC: 0TCB3ZZ Extirpation of Matter from Bladder, Percutaneous Approach (ICD-10-PCS; principal; 2018-12-23)
PROC: 30233N1 Transfusion of Nonautologous Red Blood Cells into Peripheral Vein, Percutaneous Approach (ICD-10-PCS; principal; 2018-12-23)
PROC: 5A1955Z Respiratory Ventilation, Greater than 96 Consecutive Hours (ICD-10-PCS; 2018-12-25)
PROC: 0BH17EZ Insertion of Endotracheal Airway into Trachea, Via Natural or Artificial Opening (ICD-10-PCS; 2018-12-25)
PROC: 30233K1 Transfusion of Nonautologous Frozen Plasma into Peripheral Vein, Percutaneous Approach (ICD-10-PCS; 2018-12-31)
PROC: 30233R1 Transfusion of Nonautologous Platelets into Peripheral Vein, Percutaneous Approach (ICD-10-PCS; 2019-01-04)
DX: A41.9 Sepsis, unspecified organism (principal); I21.A1 Myocardial infarction type 2; J69.0 Pneumonitis due to inhalation of food and vomit; E43 Unspecified severe protein-calorie malnutrition; J15.6 Pneumonia due to other Gram-negative bacteria; G93.41 Metabolic encephalopathy; J96.21 Acute and chronic respiratory failure with hypoxia; I96 Gangrene, not elsewhere classified; J15.9 Unspecified bacterial pneumonia; Z93.0 Tracheostomy status; N17.0 Acute kidney failure with tubular necrosis; Z66 Do not resuscitate; D62 Acute posthemorrhagic anemia; E83.42 Hypomagnesemia; R65.21 Severe sepsis with septic shock; N17.9 Acute kidney failure, unspecified; D68.32 Hemorrhagic disorder due to extrinsic circulating anticoagulants; N39.0 Urinary tract infection, site not specified; R31.0 Gross hematuria; D68.59 Other primary thrombophilia; D69.6 Thrombocytopenia, unspecified; E03.9 Hypothyroidism, unspecified; I50.31 Acute diastolic (congestive) heart failure; K21.9 Gastro-esophageal reflux disease without esophagitis; N18.9 Chronic kidney disease, unspecified; Z87.891 Personal history of nicotine dependence; Z93.1 Gastrostomy status; R53.2 Functional quadriplegia; E86.0 Dehydration; I25.10 Atherosclerotic heart disease of native coronary artery without angina pectoris; E11.22 Type 2 diabetes mellitus with diabetic chronic kidney disease; E88.09 Other disorders of plasma-protein metabolism, not elsewhere classified; Z74.01 Bed confinement status; R64 Cachexia; Z68.37 Body mass index [BMI] 37.0-37.9, adult; F03.90 Unspecified dementia, unspecified severity, without behavioral disturbance, psychotic disturbance, mood disturbance, and anxiety; E87.2 Acidosis; F09 Unspecified mental disorder due to known physiological condition; M62.50 Muscle wasting and atrophy, not elsewhere classified, unspecified site; E11.649 Type 2 diabetes mellitus with hypoglycemia without coma; E87.1 Hypo-osmolality and hyponatremia; B96.1 Klebsiella pneumoniae [K. pneumoniae] as the cause of diseases classified elsewhere; T45.515A Adverse effect of anticoagulants, initial encounter; Y92.89 Other specified places as the place of occurrence of the external cause; Z16.12 Extended spectrum beta lactamase (ESBL) resistance; L98.8 Other specified disorders of the skin and subcutaneous tissue; L30.4 Erythema intertrigo; L89.610 Pressure ulcer of right heel, unstageable; L89.620 Pressure ulcer of left heel, unstageable; E87.6 Hypokalemia; E11.52 Type 2 diabetes mellitus with diabetic peripheral angiopathy with gangrene; I25.2 Old myocardial infarction; K92.2 Gastrointestinal hemorrhage, unspecified; K76.89 Other specified diseases of liver; E86.1 Hypovolemia; J44.0 Chronic obstructive pulmonary disease with (acute) lower respiratory infection; N32.89 Other specified disorders of bladder; Z86.19 Personal history of other infectious and parasitic diseases; K56.7 Ileus, unspecified; I11.0 Hypertensive heart disease with heart failure
CPT/HCPCS: 31720; 36415; 36569; 36600; 71045-TC; 73020; 74018; 74178; 76700-TC; 76856-TC; 80048-TC; 80053-TC; 80061-TC; 80076-TC; 80150; 80202-TC; 81000-TC; 82010-TC; 82248-TC; 82272-TC; 82378; 82728-TC; 82803-TC; 82945-TC; 82947-TC; 82962-TC; 83540-TC; 83605-TC; 83735-TC; 83935-TC; 84100-TC; 84300-TC; 84439-TC; 84443-TC; 84484-TC; 85025-TC; 85027-TC; 85378-TC; 85385-TC; 85396; 85730-TC; 86304; 86850-TC; 86921-TC; 87040-TC; 87045-TC; 87070-TC; 87081-TC; 87086-TC; 87186-TC; 87400; 93307-TC; 93926-TC; 94002-TC; 94003-TC; 94760-TC; 94762-TC; 94799-TC; 99082-TC; A4216; A4217; A6253; A6402; A7526; C9113; G0378; J0278; J0330; J0696; J0878; J1650; J1815; J1940; J2020; J2185; J2370; J2405; J2543; J2765; J2930; J3370; J3430; J3475; J3480; J3490; J7030; J7040; J7042; J7050; J7060; J7070; P9016-BL; P9017-BL; P9034-BL; P9047; Q9967